=== PATIENT | male | born 1995 | race Caucasian/White ===

== ENCOUNTER → 2019-09-01 17:41 | Outpatient (CLI) | payer MEDICAID, SELFPAY ==
--- NOTE | 2019-09-01 | XR_ITS ---
PROCEDURE: XR HAND RT MIN 3V CLINICAL INDICATION: PAIN COMPARISON: No exams were available for comparison FINDINGS: There is a nondisplaced fracture of the proximal base of the 5th metacarpal with some overlying soft tissue swelling. There is no other convincing evidence of bony fracture. The joint spaces are well-preserved. No significant degenerative/arthritic changes. No erosive changes evident. Other findings:None. IMPRESSION: Nondisplaced fracture proximal base 5th metacarpal. Dictated by: Tunde Rogel 09/02/2019 10:41 Electronically signed by Tunde Rogel in [place] 09/02/2019 10:41
--- NOTE | 2019-09-01 | XR_ITS ---
PROCEDURE: XR WRIST RT MIN 3V CLINICAL INDICATION: PAIN/FALL COMPARISON: No exams were available for comparison FINDINGS: There is a nondisplaced fracture of the proximal base of the 5th metacarpal. There is no other convincing evidence of acute fracture or dislocation. If additional occult fracture is suspected clinically, repeat exam in 7-[address] should be considered further evaluate. IMPRESSION: Nondisplaced fracture proximal base 5th metacarpal. Dictated by: Tunde Rogel 09/02/2019 10:55 Electronically signed by Tunde Rogel in [place] 09/02/2019 10:55
== END ==
PROVIDERS: Visit Provider Nurse Practitioner Family
DX: M79.641 Pain in right hand (principal); M25.531 Pain in right wrist
CPT/HCPCS: 73110; 73130

== ENCOUNTER → 2019-09-13 09:49 | Outpatient (CLI) | payer MEDICAID, SELFPAY ==
--- NOTE | 2019-09-13 10:04 | XR_ITS ---
PROCEDURE: XR HAND RT MIN 3V CLINICAL INDICATION: 5th MC fracture COMPARISON: No exams were available for comparison FINDINGS: Nondisplaced fracture transverse in nature once again noted at the base of the 5th metacarpal not significantly changed. The joint spaces are well-preserved. No significant degenerative/arthritic changes. No erosive changes evident. Other findings:None. IMPRESSION: No change nondisplaced fracture base of 5th metacarpal Dictated by: Jake Ramos MD 09/13/2019 11:38 Electronically signed by Jake Ramos MD in [place] 09/13/2019 11:38
== END ==
PROVIDERS: Visit Provider Orthopaedic Surgery
DX: S62.91XA Unspecified fracture of right hand, initial encounter for closed fracture (principal)
CPT/HCPCS: 73130

== ENCOUNTER → 2019-10-08 13:09 | Outpatient (CLI) | payer MEDICAID, SELFPAY ==
--- NOTE | 2019-10-08 13:13 | XR_ITS ---
PROCEDURE: XR HAND RT MIN 3V CLINICAL INDICATION: rt 5th mc fx, OUT OF CAST Injury with pain COMPARISON: XR HAND RT MIN 3V from 09/01/2019 XR HAND RT MIN 3V from 09/13/2019 FINDINGS: There is an old fracture at the base of the 5th metacarpal. Fracture line is still visible along the ulnar aspect. No other significant anomalies are evident. IMPRESSION: No acute finding. Old fracture base of 5th metacarpal Dictated by: Jake Ramos MD 10/08/2019 14:35 Electronically signed by Jake Ramos MD in [place] 10/08/2019 14:35
== END ==
PROVIDERS: Visit Provider Orthopaedic Surgery
DX: S62.346D Nondisplaced fracture of base of fifth metacarpal bone, right hand, subsequent encounter for fracture with routine healing (principal)
CPT/HCPCS: 73130

== ENCOUNTER 2022-12-22 18:22 | Emergency (ER) | payer MEDICAID, SELFPAY ==
[2022-12-22 18:23] VITALS: BP 135/78; PULSE 90; RESP 18; TEMP 36.7; O2SAT 100; BMI 19.0
--- NOTE | 2022-12-22 18:39 | EXP.UTC ---
Discharge Plan Disposition Patient Disposition: Home, Self-Care Condition: Good Prescriptions Prescriptions: New cephalexin 500 mg capsule 500 mg PO QID Qty: 40 0RF mupirocin 2 % ointment 1 applic topical TID 7 Days Qty: 15 0RF No Action bupropion HCl [Wellbutrin XL] 300 mg tablet extended release 24 hr 300 mg PO DAILY Qty: 30 0RF Referrals Follow up/Referrals: Ashu Young APRN [Primary Care Provider] - See instructions Activity Restrictions/Add. Instructions Additional Instructions/Restrictions: Keep the wound clean and dry. Watch the wound for signs of infection, such as redness, swelling, drainage, fever. etc. Take tylenol or ibuprofen for pain. Follow up with your regular doctor. GO TO THE ER FOR ANY WORSENING SYMPTOMS OR CONCERNS. Clinical Impressions Clinical Impression: Abrasion of ankle, left Instructions Patient Instructions: DI for Abrasion, Cephalexin, Mupirocin Discharge ED Provider[place] [facility] [facility] [place] General Stated complaint: AO06/04 LT ankle inj Mode of Arrival: Ambulatory Source of Information: Patient Limitations: No Limitations Time Seen by Provider: 12/22/22 18:39 Description of Symptoms (Recalled from Triage Doc. by RN): Patient reports sore on left ankle from a rock hitting it two days ago. HEENT Symptoms (Recalled from RN notes): No Resp Symptoms (Recalled from RN notes): No Skin Symptoms (Recalled from RN notes): Yes MS Symptoms (Recalled from RN notes): No Functional Status (Recalled from RN notes): wnl History of Present Illness Provider Complaint: He was mowing 2 days ago when a rock flew and hit him on his left ankle. This resulted in an abrasion. He states that since then he has pain and redness at the site. Related Data Previous Rx's Medication Instructions Recorded bupropion HCl 300 mg 24 hr tablet, 300 mg PO DAILY #30 tabs 03/30/21 extended release (Wellbutrin XL) cephalexin 500 mg capsule 500 mg PO QID #40 caps 12/22/22 mupirocin 2 % topical ointment 1 applic topical TID 7 days #15 12/22/22 grams Allergies Allergy/AdvReac Type Severity Reaction Status Date / Time No Known Allergies Allergy Verified 01/26/21 11:40 Worker's Comp Is this a Worker's Comp case?: No [facility] Disclaimer: The information contained in this section may have been updated after the patient was seen, as this information can be updated by other users. Social History Smoking Status: Current every day smoker tobacco type: cigarettes packs per day: 1 second hand exposure: No alcohol intake: current substance use type: denies use current occupational status: unemployed and disabled Travel in the last 8 weeks: None household members: significant other housing: apartment number of children: 3 current occupational exposures/hazards: No caffeine: Yes ROS Obtained: Yes All systems reviewed & no additional complaints except as documented Constitutional Constitutional: Denies chills and Denies fever(s) Eyes Eyes: Denies eye discharge ENT Ears, Nose, Mouth, and Throat: Denies dizziness, Denies otalgia and Denies sore throat Cardiovascular Cardiovascular: Denies chest pain Respiratory Respiratory: Denies shortness of breath, Denies chest congestion, Denies cough, Denies stridor and Denies wheezing Gastrointestinal Gastrointestingal: Denies nausea or vomiting Musculoskeletal Musculoskeletal: Reports system reviewed and no additional complaints, except as documented and Denies arthralgias Integumentary/Breasts Skin/Breast: Reports as per HPI Neurologic Neurologic: Denies dizziness and Denies paresthesias Allergic/Immunologic Allergic/Immunologic: Denies wheezing Physical Exam General General appearance: alert and in no apparent distress Head Head exam: atraumatic, normocephalic and normal inspection Eye Eye exam: Present normal appearance, PERRL and EOMI ENT ENT exam: Pr
[2022-12-22 19:28] VITALS: BP 135/78; PULSE 90; RESP 18; TEMP 36.7; O2SAT 100
== END 2022-12-22 19:29 | disposition home or self-care (01) ==
PROVIDERS: Emergency Provider Nurse Practitioner Family; PCP Nurse Practitioner Family
DX: S90.512A Abrasion, left ankle, initial encounter (principal); F17.210 Nicotine dependence, cigarettes, uncomplicated; W20.8XXA Other cause of strike by thrown, projected or falling object, initial encounter
CPT/HCPCS: 99204; 99212; G0463

== ENCOUNTER 2023-11-11 15:34 | Emergency (ER) | payer MEDICAID, SELFPAY ==
--- NOTE | 2023-11-11 15:34 | ECG_ITS ---
APPROVED REPORT Exam: Resting ECG HR:92 bpm ECG Measurements Heart Rate 92 AXES IA 297 P 85 QRSd 89 QRS 94 QT 337 T 62 QTc 387 Conclusion SINUS RHYTHM WITH FIRST DEGREE AV BLOCK BORDERLINE RIGHT AXIS DEVIATION [QRS AXIS > 90] Electronically signed by : POPEYE SMITH, 11/12/2023 00:25:09
[2023-11-11 15:39] VITALS: BP 158/95; PULSE 103; RESP 20; TEMP 36.8; O2SAT 100; BMI 19.0
--- NOTE | 2023-11-11 15:40 | PC.NURSE ---
DR SMITH AT BEDSIDE
--- NOTE | 2023-11-11 15:42 | XR_ITS ---
FINAL REPORT TECHNIQUE: Chest PA & Lateral CLINICAL HISTORY: Precordial chest pain FINDINGS: 2 views of the chest were performed. The heart size is normal. The mediastinum is within normal limits. There is no acute cardiopulmonary process. There are no pleural effusions. There is no pneumothorax. The bony thorax appears intact. IMPRESSION: No acute cardiopulmonary process. Reviewed, Interpreted and Dictated by Paul Phoenix MD Transcribed by Sejal Spencer Authenticated and [facility]
[2023-11-11 15:48] LABS: Basophils # 0.2 K/mm3 (0-0.2); Basophils % 2.4 % (0.1-2.0); Chloride 104 mmol/L (98-107); Eosinophils % 0.5 % (0.1-12.0); Hematocrit 49.1 % (42.0-52.0); Hemoglobin 16.1 g/dL (14.1-18.0); Lymphocytes # 1.8 K/mm3 (0.7-4.5); Lymphocytes % 22.5 % (10-50); Mean Corpuscular HGB Conc 32.9 g/dL (31.8-35.4); Mean Corpuscular Hemoglobin 34.1 pg (27.0-31.2); Mean Corpuscular Volume 103.9 fl (80-94); Mean Platelet Volume 8.2 fl (7.4-10.4); Monocytes # 0.9 K/mm3 (0.1-1.0); Monocytes % 11.2 % (1.7-9.3); Neutrophils # 5.1 K/mm3 (1.8-7.8); Neutrophils % 63.4 % (37.0-80.0); Platelet Count 178 K/mm3 (142-424); Red Blood Count 4.73 M/mm3 (4.60-6.20); Red Cell Distribution Width 13.7 % (11.5-17.5)
[2023-11-11 15:49] LABS: Potassium 3.6 mmoL/L (3.5-5.1); Sodium 140 mmol/L (136-145)
--- NOTE | 2023-11-11 15:49 | PC.NURSE ---
patient gone to XRay at this time.
[2023-11-11 15:51] LABS: Alanine Aminotransferase 70 U/L (12-78); Alkaline Phosphatase 99 U/L (38-126); Aspartate Amino Transferase 61 U/L (17-59); Bilirubin,Total 0.8 mg/dl (0.2-1.3); Blood Urea Nitrogen 8 mg/dl (9-20); Creatinine Clearance Estimated 140 mL/min (50-200); Estimated Glomerular Filt Rate 133 ml/min (>60); GFR (African American) 161 ML/MIN (>60)
[2023-11-11 15:52] LABS: Albumin Level 4.3 g/dl (3.5-5.0); Albumin/Globulin Ratio 1.5 (1.1-1.8); Anion Gap 11.6 mEq/L (5-15); Calcium 9.2 mg/dl (8.4-10.2); Carbon Dioxide 28 mmol/L (22.0-30.0); Globulin 2.9 g/dL (1.3-3.2); Glucose 139 mg/dl (74-100); Total Protein,Serum 7.2 g/dl (6.3-8.2)
--- NOTE | 2023-11-11 15:56 | [facility].EDCP ---
Discharge Plan Disposition Patient Disposition: Home, Self-Care Condition: Good Prescriptions Prescriptions: No Action bupropion HCl [Wellbutrin XL] 300 mg tablet extended release 24 hr 300 mg PO DAILY Qty: 30 0RF cephalexin 500 mg capsule 500 mg PO QID Qty: 40 0RF mupirocin 2 % ointment 1 applic topical TID 7 Days Qty: 15 0RF Referrals Follow up/Referrals: Yeison Hopper MD [Staff Physician] - See instructions Wagner Key MD [Staff Physician] - See instructions Hao Noyola DO [Staff Physician] - See instructions ProviderNick MD [Primary Care Provider] - See instructions Marcelo Goldberg MD [Staff Physician] - See instructions Activity Restrictions/Add. Instructions Additional Instructions/Restrictions: You were evaluated in the emergency department today. Please follow-up closely with your primary care provider. We have provided you with information for a few. I recommend avoiding smoking. Avoid excess caffeine use. Make sure that you are eating regularly and eating a well-balanced diet. Return to the emergency department for new or worsening symptoms. Clinical Impressions Clinical Impression: Chest pain, Tobacco dependence, Syncope, vasovagal Stand Alone Forms Stand Alone Forms: Work/School Release Instructions Patient Instructions: DI for Atypical Chest Pain Discharge ED Provider: Marilu Garza General Chief Complaint: Chest Pain Stated Complaint: CHEST PAIN Time Seen by Provider: 11/11/23 15:37 Mode of Arrival: Ambulatory Source of Information: Patient Limitations: No Limitations Description of Symptoms (Recalled from ER Triage Doc. by RN): pt to ed c/o left sided chest pain intermittently x2 hours. pt states the pain os sharp in nature. pt denies n/v. pt states he was at rest when the pain started associated with body aches. 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 History of Present Illness HPI narrative: This patient is a 28-year-old male with history of tobacco dependence presenting to the emergency department for evaluation with concern for chest pain. Patient reports that it is intermittently been going on for the last 2 days. He states that it is sharp in nature on the left side of his chest. He also had sweats and some bodyaches associated with it. He denies any other associated symptoms, such as fevers, sore throat, congestion, cough, shortness of breath, abdominal pain, nausea, vomiting, changes bowel movements, rashes, or swelling. He also denies any history of IV drug use. He notes that he thinks this may be related to drinking energy drinks, as it seemed to have started after he had drink an energy drink. He also notes that it may be related to cigarettes, as he does smoke. He notes he had a history of open heart surgery 3 months old because he had a leaky heart valve, but denies any cardiac history since and states that he is otherwise been fine. Related Data Previous Rx's Medication Instructions Recorded bupropion HCl 300 mg 24 hr tablet, 300 mg PO DAILY #30 tabs 03/30/21 extended release (Wellbutrin XL) cephalexin 500 mg capsule 500 mg PO QID #40 caps 12/22/22 mupirocin 2 % topical ointment 1 applic topical TID 7 days #15 12/22/22 grams Allergies Allergy/AdvReac Type Severity Reaction Status Date / Time No Known Allergies Allergy Verified 01/26/21 11:40 [facility] Disclaimer: The information contained in this section may have been updated after the patient was seen, as this information can be updated by other users. Social History Smoking Status: Never smoker second hand exposure: No alcohol intake: current alcohol intake frequency: holidays/special occasions only substance use type: denies use current occupational status: unemployed and disabled Travel in the last 8 weeks: None household members: significant other housing: apartment number of children: 3 current occupational exposures/hazards: No caffeine: Yes ROS Obtained: Yes All systems reviewed & no additional complaints except as documented Physical Exam General General appearance: alert and in no apparent distress Comment: Very thin with temporal wasting Head Head exam: atraumatic and normocephalic Eye Eye exam: Present normal appearance, PERRL and EOMI ENT ENT exam: Present normal exam, normal oropharynx, mucous membranes moist and normal external ear exam Neck Neck exam: Present normal inspection, full ROM and trachea midline; Absent tenderness Chest Chest inspection: Present normal inspection and symmetric chest wall rise; Absent tenderness Respiratory Respiratory exam: Present normal lung sounds bilaterally; Absent respiratory distress, wheezes, stridor or accessory muscle use Cardiovascular Cardiovascular exam: Present regular rate and normal rhythm Abdominal Exam Abdominal exam: Present soft; Absent distention, tenderness or guarding Extremities Exam Extremities exam: Present normal inspection, full ROM and normal capillary refill; Absent tenderness or edema Back Exam Back exam: Present normal inspection and full ROM; Absent tenderness Neurological Exam Neurological exam: Present alert, oriented X3, CN II-XII intact and normal gait; Absent motor sensory deficit Psychiatric Psychiatric exam: Present normal affect and normal mood Skin Skin exam: Present warm and dry HEART Score HEART Score HEART Score assessment performed?: Yes History (anamnesis): Slightly suspicious ECG: Normal Age: <45 years Risk factors: No known risk factors Troponin: </= normal limit HEART Score: 0 Procedures Limited Ultrasound Findings:: Limited cardiac ultrasound Indication: Chest pain Identified cardiac views: [-Cardiac parasternal long axis] [-Cardiac parasternal short axis] [-Cardiac subxiphoid] Findings: [-Cardiac activity present -Gross wall motion normal -Pericardial effusion absent -Right heart strain absent] Impression: -[From above] Images [were saved] to permanent archive The study [was] technically adequate CPT: 01404 This study was performed by me, and I personally interpreted all images/videos. Based on my clinical judgement, these images were [adequate] and [did not] necessitate further imaging. Critical Care Critical Care Time Critical Care Time: No Medical Decision Making Medical Records Medical records reviewed: Yes I reviewed the patient's medical records. Bhanu Inquiry Pt receiving controlled substance: No Vital Signs Vital Signs: 11/11/23 15:39 11/11/23 16:00 11/11/23 16:32 Temperature 98.2 F Temperature Source Oral Pulse Rate 97 H 71 Pulse Rate [Left Radial] 103 H Respiratory Rate 20 22 15 Blood Pressure 129/83 94/49 L Blood Pressure [Right Arm] 158/95 H Blood Pressure Mean [Right Arm] 116 02 Sat by Pulse Oximetry 100 98 97 Oxygen Delivery Method Room Air 11/11/23 17:00 11/11/23 17:30 Temperature 98.2 F Temperature Source Oral Pulse Rate 76 77 Pulse Rate [Left Radial] Respiratory Rate 17 16 Blood Pressure 126/68 117/70 Blood Pressure [Right Arm] Blood Pressure Mean [Right Arm] 02 Sat by Pulse Oximetry 99 Oxygen Delivery Method Room Air Lab Data Labs: Lab Results 11/11/23 15:35: WBC 8.0, RBC 4.73, Hgb 16.1, Hct 49.1, MCV 103.9 H, MCH 34.1 H, MCHC 32.9, RDW 13.7, Plt Count 178, MPV 8.2, Neut % (Auto) 63.4, Lymph % (Auto) 22.5, [place] % (Auto) 11.2 H, Eos % (Auto) 0.5, Baso % (Auto) 2.4 H, Neut # (Auto) 5.1, Lymph # (Auto) 1.8, [place] # (Auto) 0.9, Eos # (Auto) 0.0, Baso # (Auto) 0.2, Sodium 140, Potassium 3.6, Chloride 104, Carbon Dioxide 28, Anion Gap 11.6, BUN 8 L, Creatinine 0.70, Estimated Creat Clear 140, Estimated GFR 133, Est GFR ( Amer) 161, Glucose 139 H, Calcium 9.2, Total Bilirubin 0.8, AST 61 H, ALT 70, Alkaline Phosphatase 99, Troponin I < 0.01, Total Protein 7.2, Albumin 4.3, Globulin 2.9, Albumin/Globulin Ratio 1.5, TSH 1.23, Thyroxine (T4) 11.9 H 11/11/23 15:38: D-Dimer 0.36 11/11/23 15:35 11/11/23 15:35 Response Orders (Tests/Meds): ED MEDICATIONS Discontinued Medications Generic Name Dose Route Start Last Admin Trade Name Freq PRN Reason Stop Dose Admin Lactated Ringer's 1,000 mls @ 999 mls/hr 11/11/23 16:19 11/11/23 16:28 Lactated Ringer's 1000 Ml Bag IV 11/11/23 17:19 999 mls/hr .Q1H1M ONE Administration Ketorolac Tromethamine 15 mg 11/11/23 16:19 11/11/23 16:27 Ketorolac 30mg/Ml Vial IV 11/11/23 16:20 15 mg ONCE ONE Administration ORDERS Category Date Time Status POCUS Point of Care (ER Only) Stat Exams 11/11/23 15:55 Completed XR chest 2V Stat Exams 11/11/23 15:42 Completed Complete Blood Count Auto Diff Stat Lab 11/11/23 15:35 Completed Comprehensive Metabolic Panel Stat Lab 11/11/23 15:35 Completed D-Dimer Stat Lab 11/11/23 15:38 Completed T4 (Thyroxine) Stat Lab 11/11/23 15:35 Completed Thyroid Stimulating Hormone Stat Lab 11/11/23 15:35 Completed Troponin I Q3H Lab 11/11/23 18:45 Ordered Troponin I Q3H Lab 11/11/23 21:45 Ordered Troponin I Stat Lab 11/11/23 15:35 Completed ECG Data Tracing #1: Attestation: I reviewed this ECG and interpreted as documented below: ECG Narrative: Normal sinus rhythm with a ventricular rate of [address] changes concerning for ischemia. ECG initial impression date: 11/11/23 ECG initial impression time: 15:38 MDM Narrative Medical Decision Narrative: In summary, this patient is a 28-year-old male presenting to the Emergency Department for evaluation of chest pains. Differential diagnoses considered include but are not limited to ACS, dysrhythmia, GERD, costochondritis, myocarditis, pericarditis, endocarditis. Ruling out the most morbid conditions drove assessment. On exam, the patient is well-appearing. He is thin with temporal wasting, but otherwise exam is reassuring. Vitals are reassuring on cardiac telemetry. Workup included CBC, CMP, troponin, D-dimer, chest x-ray, EKG, and bedside cardiac ultrasound. He was given a bolus of IV fluids as well as IV Toradol. EKG obtained is reassuring. I independently interpreted x-ray prior to the radiologist read and noted focal consolidation, pneumothorax, or other concern. Please see their read for final interpretation. Labs were obtained that demonstrated negative troponin, negative D-dimer, and no other acutely concerning abnormalities. Bedside cardiac ultrasound was obtained that was reassuring. On reassessment, patient is resting comfortably with normal vital signs on cardiac telemetry. It should be noted that while in the ED, patient did have a vasovagal syncopal episode related to seeing blood return and his IV. He recovered without issue. Ultimately, workup is reassuring. Heart score 0. Given this, feel that the patient is appropriate for discharge with close outpatient follow with primary care provider. I encouraged him to abstain from tobacco use as well as excess caffeine use. I also encouraged well-balanced diet. Patient was discharged after all questions were answered
[2023-11-11 16:00] VITALS: BP 129/83; PULSE 97; RESP 22; O2SAT 98
[2023-11-11 16:05] LABS: Troponin I < 0.01 ng/ml (0.00-0.034)
[2023-11-11 16:09] LABS: T4 (Thyroxine) 11.9 ug/dl (5.53-11.0)
[2023-11-11 16:23] LABS: Thyroid Stimulating Hormone 1.23 uIU/mL (0.465-4.68)
[2023-11-11] MEDS: KETOROLAC 30MG/ML VIAL 15 MG IV (16:27)
[2023-11-11] MEDS: LACTATED RINGERS 1000ML 1,000 ML 999 ML IV (16:28)
[2023-11-11 16:32] VITALS: BP 94/49; PULSE 71; RESP 15; O2SAT 97
[2023-11-11 16:42] LABS: D-Dimer 0.36 ug/mL (0.0-0.5)
[2023-11-11 17:00] VITALS: BP 126/68; PULSE 76; RESP 17; O2SAT 99
[2023-11-11 17:30] VITALS: BP 117/70; PULSE 77; RESP 16; TEMP 36.8; O2SAT 99
== END 2023-11-11 17:43 | disposition home or self-care (01) ==
PROVIDERS: Emergency Provider Emergency Medicine
DX: R07.89 Other chest pain (principal); R55 Syncope and collapse; F17.210 Nicotine dependence, cigarettes, uncomplicated
CPT/HCPCS: 71046; 80053; 84436; 84443; 84484; 85025; 85378; 93005; 96361; 96374; 99285

== ENCOUNTER 2025-01-25 12:43 | Emergency (ER) | payer MEDICAID, SELFPAY ==
[2025-01-25] VITALS (9 sets, daily range): BP systolic 100–124; BP diastolic 63–81; PULSE 54–75; RESP 16–18; TEMP 36.6–37.1; O2SAT 97–100; BMI 20.3
--- NOTE | 2025-01-25 12:55 | XR_ITS ---
FINAL REPORT CLINICAL HISTORY: laceration RT HAND COMPARISON: None FINDINGS: Three views of the right hand show no evidence of acute displaced fracture or dislocation of the visualized bony architecture. The joint spaces appear normal. No radiopaque foreign body. IMPRESSION: Unremarkable exam. Reviewed, Interpreted and Dictated by Juan Manuel Pappas MD Transcribed by Sonja Contreras Authenticated and [facility]
[2025-01-25] MEDS: TET/DIPHTH/PERT-ADULT 0.5ML SYRINGE 0.5 ML IM (13:16)
[2025-01-25] MEDS: LIDOCAINE 1% 5ML PF VIAL 5 ML IJ (13:17)
--- NOTE | 2025-01-25 13:31 | PC.NURSE ---
Addendum entered by Madelyn Quezada, EMT 01/25/25 13:31: phone with [facility] per Dr Light for consult with hand for tendon lac Original Note: ashley is currently on hp
--- NOTE | 2025-01-25 14:29 | ED_ITS ---
Discharge Plan Disposition Patient Disposition: Xfer Other Condition: Fair Prescriptions Prescriptions: No Action amoxicillin 875 mg tablet 875 mg PO BID 10 Days Qty: 20 0RF Referrals Follow up/Referrals: Provider,Referral, [Primary Care Provider, Medical] - See instructions Clinical Impressions Clinical Impression: Laceration of hand, Injury of hand, flexor tendon Stand Alone Forms Stand Alone Forms: Transfer Record - ED Instructions Patient Instructions: DI for Laceration Repair Print Language Print Language: Malay Discharge ED Provider: Fede Light General Adult HPI <MARISOL Wilson - Last Filed: 01/25/25 15:36> General Chief complaint: Wound/Laceration Stated complaint: R hand Laceration Time Seen by Provider: 01/25/25 12:45 Mode of Arrival: Wheelchair Source of Information: Patient Description of Symptoms (Recalled from ER Triage Doc. by RN): Pt presents to the ED with a lacerations to his right ring and pinky finger. pt reports he was using a kitchen knife trying to cut something off a nurse wound when the knife slipped. On arrival the pt was clammy and pale from looking at the blood. pt reports that he has numbness to the fingers that have the lacerations. History of Present Illness HPI narrative: Patient reports that just prior to arrival he was attempting to cut something off of a lawnmower with a kitchen knife. He lacerated the palmar surface of his 4th and 5th proximal phalanx. He reports that he has limited range of motion. He is unsure of his last tetanus vaccination. He did have N/V x 1 afterwards. complaint: Hand laceration Onset (ago): minute(s) (30) Location: right and upper extremity Radiation: non-radiation Severity: moderate Quality: constant Consistency: constant Relieving factors: none Exacerbating factors: movement Associated symptoms: nausea/vomiting (x1) Treatments prior to arrival: none Related Data Previous Rx's ?Medication ?Instructions ?Recorded amoxicillin 875 mg tablet 875 mg PO BID 10 days #20 ta bs 10/23/24 Allergies Allergy/AdvReac Type Severity Reaction Status Date / Time No Known Allergies Allergy Verified 10/23/24 18:19 <Fede Light DO - Last Filed: 01/29/25 20:26> History of Present Illness HPI narrative: Patient reports that just prior to arrival he was attempting to cut something off of a lawnmower with a kitchen knife. He lacerated the palmar surface of his 4th and 5th proximal phalanx. Following the event he did have symptoms consistent with a vasovagal episode in which he vomited and then became near syncopal and diaphoretic. Since the injury, he has had some subjective diminished sensation in the distal aspect of the 4th and 5th digits. He has also noted he is having difficulty with flexion of the fingers. He is unsure of his last tetanus vaccination. [facility] <MARISOL Wilson - Last Filed: 01/25/25 15:36> [facility] Disclaimer: The information contained in this section may have been updated after the patient was seen, as this information can be updated by other users. Medical History (Updated 01/25/25 @ 16:19 by Juan Antonio Gallardo MD) Otitis media Social History Smoking Status: Current every day smoker tobacco type: cigarettes packs per day: 1 second hand exposure: No alcohol intake: current alcohol intake frequency: holidays/special occasions only substance use type: denies use current occupational status: unemployed and disabled Travel in the last 8 weeks?: None household members: significant other housing: apartment number of children: 3 current occupational exposures/hazards: No caffeine: Yes Other Medical History Have you received the Flu Vaccine for this season: No Have you received the Pneumonia Vaccine: No <MARISOL Wilson - Last Filed: 01/25/25 15:36> ROS Obtained: Yes All systems reviewed & no additional complaints except as documented Physical Exam <MARISOL Wilson Last Filed: 01/25/25 15:36> General General appearance: alert and in no apparent distress Head Head exam: atraumatic and normocephalic Eye Eye exam: Present normal appearance and EOMI Chest Chest inspection: Present symmetric chest wall rise Respiratory Respiratory exam: Present normal lung sounds bilaterally; Absent wheezes or stridor Cardiovascular Cardiovascular exam: Present regular rate and normal rhythm; Absent systolic murmur Extremities Exam Extremities exam: Present full ROM Expanded Upper Extremity Exam Right: Hand exam: Present tenderness, swelling and laceration (proximal phalanx lacerations to the palmar surface, 1.5-2 cm each. Unable to flex DIP of both digits. <2 second capillary refill.); Absent full ROM Hand L/R front image: 2 1. laceration 2. laceration Neurological Exam Neurological exam: Present alert and oriented X3 Psychiatric Psychiatric exam: Present normal affect and normal mood Skin Skin exam: Present warm, dry and intact Medical Decision Making <MARISOL Wilson - Last Filed: 01/25/25 15:36> Medical Records Screening: Per USPSTF and CDC recommendations, given the prevalence of disease in our region, it is our hospital?s policy to screen for HIV and viral Hepatitis for all patients aged 18 and over and those with ongoing risk factors. Bhanu Inquiry Pt receiving controlled substance: No Vital Signs: 01/25/25 12:47 01/25/25 12:55 01/25/25 13:00 Temperature 97.8 F 98.7 F Temperature Source Tympanic Tympanic Pulse Rate 68 61 Pulse Rate [Left] 61 Respiratory Rate 18 18 Blood Pressure 104/68 L 104/68 L Blood Pressure [Right Arm] 104/68 L Blood Pressure Mean 87 Blood Pressure Mean [Right Arm] 80 Blood Pressure Source Automatic Cuff Blood Pressure Source [Right Arm] Automatic Cuff Blood Pressure Position Supine Blood Pressure Position [Right Arm] Supine 02 Sat by Pulse Oximetry 100 100 100 Oxygen Delivery Method Room Air Room Air 01/25/25 13:01 01/25/25 13:30 01/25/25 14:00 Temperature Temperature Source Pulse Rate 75 59 L 56 L Pulse Rate [Left] Respiratory Rate Blood Pressure 100/68 L 118/71 116/65 Blood Pressure [Right Arm] Blood Pressure Mean 78 86 Blood Pressure Mean [Right Arm] Blood Pressure Source Blood Pressure Source [Right Arm] Blood Pressure Position Blood Pressure Position [Right Arm] 02 Sat by Pulse Oximetry 100 100 100 Oxygen Delivery Method Room Air 01/25/25 14:30 01/25/25 15:00 01/25/25 16:42 Temperature 98.7 F Temperature Source Oral Pulse Rate 61 54 L 62 Pulse Rate [Left] Respiratory Rate 16 Blood Pressure 109/68 L 112/63 124/81 Blood Pressure [Right Arm] Blood Pressure Mean 77 70 Blood Pressure Mean [Right Arm] Blood Pressure Source Automatic Cuff Blood Pressure Source [Right Arm] Blood Pressure Position Supine Blood Pressure Position [Right Arm] 02 Sat by Pulse Oximetry 98 97 Oxygen Delivery Method Room Air Orders (Tests/Meds): ED MEDICATIONS Discontinued Medications Generic Name Dose Route Start Last Admin Trade Name Freq PRN Reason Stop Dose Admin Lidocaine HCl 5 ml 01/25/25 12:55 01/25/25 13:17 Lidocaine 1% 5ml Pf Vial IJ 01/25/25 12:56 5 ml ONCE ONE Administration Tetanus/Reduced Diphtheria/Acell Pertussis 0.5 ml 01/25/25 12:55 01/25/25 13:16 Tet/Diphth/Pert-Adult 0.5ml Syringe IM 01/25/25 12:56 0.5 ml .ONCE ONE Administration ORDERS Category Date Time Status Hand XR right minimum 3 views [XR hand RT min 3V] Stat Exams 01/25/25 12:55 Completed Medical Decision Narrative: In summary patient is a 30-year-old who presents the emergency department for evaluation of laceration. Patient is hemodynamically upon arrival afebrile. Laceration to the proximal 4th and 5th digits on the palmar surface. Differential diagnosis includes superficial laceration, tendon laceration, foreign body. Initial workup will be conducted with x-ray. Initial inventions include tetanus vaccination updated. Initial workup reviewed by me x-ray unremarkable. Given his inability to flex the DIP of the 4th and 5th digits patient was discussed with hand. They advised transferring the patient for further evaluation and treatment. Patient is stable at this time and agreeable to the plan. Patient wishes to go POV which is appropriate. I independently interpreted the hand Xray with no acute fracture or foreign body. <Fede Light, DO - Last Filed: 01/29/25 20:26> Vital Signs: 01/25/25 12:47 01/25/25 12:55 01/25/25 13:00 Temperature 97.8 F 98.7 F Temperature Source Tympanic Tympanic Pulse Rate 68 61 Pulse Rate [Left] 61 Respiratory Rate 18 18 Blood Pressure 104/68 L 104/68 L Blood Pressure [Right Arm] 104/68 L Blood Pressure Mean 87 Blood Pressure Mean [Right Arm] 80 Blood Pressure Source Automatic Cuff Blood Pressure Source [Right Arm] Automatic Cuff Blood Pressure Position Supine Blood Pressure Position [Right Arm] Supine 02 Sat by Pulse Oximetry 100 100 100 Oxygen Delivery Method Room Air Room Air 01/25/25 13:01 01/25/25 13:30 01/25/25 14:00 Temperature Temperature Source Pulse Rate 75 59 L 56 L Pulse Rate [Left] Respiratory Rate Blood Pressure 100/68 L 118/71 116/65 Blood Pressure [Right Arm] Blood Pressure Mean 78 86 Blood Pressure Mean [Right Arm] Blood Pressure Source Blood Pressure Source [Right Arm] Blood Pressure Position Blood Pressure Position [Right Arm] 02 Sat by Pulse Oximetry 100 100 100 Oxygen Delivery Method Room Air 01/25/25 14:30 01/25/25 15:00 01/25/25 16:42 Temperature 98.7 F Temperature Source Oral Pulse Rate 61 54 L 62 Pulse Rate [Left] Respiratory Rate 16 Blood Pressure 109/68 L 112/63 124/81 Blood Pressure [Right Arm] Blood Pressure Mean 77 70 Blood Pressure Mean [Right Arm] Blood Pressure Source Automatic Cuff Blood Pressure Source [Right Arm] Blood Pressure Position Supine Blood Pressure Position [Right Arm] 02 Sat by Pulse Oximetry 98 97 Oxygen Delivery Method Room Air Orders (Tests/Meds): ED MEDICATIONS Discontinued Medications Generic Name Dose Route Start Last Admin Trade Name Freq PRN Reason Stop Dose Admin Lidocaine HCl 5 ml 01/25/25 12:55 01/25/25 13:17 Lidocaine 1% 5ml Pf Vial IJ 01/25/25 12:56 5 ml ONCE ONE Administration Tetanus/Reduced Diphtheria/Acell Pertussis 0.5 ml 01/25/25 12:55 01/25/25 13:16 Tet/Diphth/Pert-Adult 0.5ml Syringe IM 01/25/25 12:56 0.5 ml .ONCE ONE Administration ORDERS Category Date Time Status Hand XR right minimum 3 views [XR hand RT min 3V] Stat Exams 01/25/25 12:55 Completed Medical Decision Narrative: In summary patient is a 30-year-old who presents the emergency department for evaluation of laceration to the palmar aspect of his 4th and 5th right fingers. On initial evaluation of the patient he appeared to be having a vagal episode, and was diaphoretic. However, he was mentating appropriately, was grossly neurologically intact, and hemodynamically stable. On examination, there is a laceration to the base of the palmar aspect of the 4th/5th digits of the right hands. These lacerations are deep. On motor exam, he is able to flex the fingers at the MCP joints, but he is unable to flex the PIP and DIP joints. He does report subjective lack of sensation in the distal tips of the fingers. I have attempted to obtain doppler signals in the digital arteries of these digits, but I am unable to obtain a signal. However, I have also tried to obtain a doppler signal on his unaffected fingers and I am also unable to detect a signal -- so I do feel like this is secondary to equipment error rather than arterial injury. Capillary refill is mildly delayed. Differential diagnosis included tendon laceration, finger fracture, foreign body, among others. Initial workup consisted of an XR of the right hand. This was personally interpreted by me and demonstrated no evidence of foreign body or fracture. We did treat the patient with a tetanus vaccination given that his last tetanus is unknown. The wound was cleansed with hibiclens and copious amounts of saline, and we dressed his wounds with gauze. Given that he has lost the ability to flex the PIP/DIP joints of his fingers I have a high index of suspicion for tendinous injury of the fingers. I have had an interactive discussion with the orthopedic hand specialist at , Dr. Bere Florez, who feels that this patient warrants urgent evaluation by a hand specialist. She has recommended transfer to the [facility] for formal evaluation. Patient would like to present via POV. He remains in stable condition and his wound is hemostatic and dressed, so I do feel that this is a safe disposition. Patient was transferred successfully by POV. Attestation: I was consulted by the [facility], and we discussed the complexity of problems being addressed. I personally evaluated the patient and performed a substantial part of the examination and medical decision making, and ultimately approved the treatment and management plan for this patient's care in the emergency department. Fede Light, Critical Care <MARISOL Wilson - Last Filed: 01/25/25 15:36> Critical Care Time Critical Care Time: No
--- NOTE | 2025-01-25 16:16 | PC.NURSE ---
Called Lauren at ED for report.
== END 2025-01-25 16:46 | disposition other institution (70) ==
PROVIDERS: Emergency Provider Student in an Organized Health Care Education/Training Program
DX: S61.411A Laceration without foreign body of right hand, initial encounter (principal); R20.0 Anesthesia of skin; F17.210 Nicotine dependence, cigarettes, uncomplicated; W26.0XXA Contact with knife, initial encounter; Z23 Encounter for immunization
CPT/HCPCS: 73130; 90471; 90715; 99285; J2003

== ENCOUNTER 2025-01-30 16:30 | Outpatient (CLI) | payer MEDICAID, SELFPAY ==
--- OUTSIDE RECORDS SUMMARY | 2025-01-25 19:58 | XMS_ITS | Encounter Summary ---
Author Organization [facility] Address [address] [place] [address] Care Team Providers Care [employer] Facer Name Role Phone Pcp, No Primary Care Provider Unavailabl e Reason for Referral * Consultation (Routine) - Authorized Specialty Diagnoses / Procedures Referred By Peggy johnston Referred To Contact Hand Surgery Diagnoses Finger laceration, initial encounter Zoila Alonso MD [address] [place] [address] Phone: tel: fax: [facility] [address] [place] [address] Phone: tel: fax: Referral ID Status Reason Start Date Expiration Date Visits Requested Visits Authorized [id number] Authorized Specialty Services Required 01/26/2025 07/28/2026 1 1 Scheduling Instructions Post op follow up [address] Mast Reason for Visit * Reason Comments Laceration * Auth/Cert (Routine) Specialty Diagnoses / Procedures Referred By Peggy t Referred To Contact Diagnoses Finger laceration, initial encounter possible tendon laceration Juan Mast MD [address] [address] Phone: tel: fax: [facility] [address] [place] [phone] Phone: tel: Referral ID Status Reason Start Date Expiration Date Visits Re quested Visits Authorized [id number] 1 1 Encounter Details Date Type Department Care Team ([facility] st Contact Info) Description 01/25/2025 7:58 PM EDT - 01/26/2025 5:09 PM EDT Hospital Encounter [facility] [address] [place] [address] Tamar Wilson MD [address] [place] [address] Juan Mast MD [address] [place] [address] Finger laceration, initial encounter (Primary [...] EDCammy Fuller 6. Suicidal Behavior (Lifetime) No 5 8:07 PM EDT Cammy Paige documented as [...] for mild pain. 100 tablet 1 01/26/2025 oxyCODONE (Roxicodone) 5 MG immediate release tablet Take 1 tablet by mouth every 6 hours as needed for severe pain. 15 tablet 01/26/2025 sulfamethoxazole- trimethoprim (Bactrim DS) 800-160 MG tabletIndications :Finger laceration, initial encounter Take 1 tablet by mouth 2 times a day for 7 days. 14 tablet 01/26/2025 02/02/2025 documented as of this encounter Miscellaneous Notes [...] PM EDT Operative Note Date: 01/26/25 Location: [facility] Name: Fran Ruvalcaba, : 1995, Diagnoses: [...] Attending Surgeon(s): * Juan Mast - Primary Donor Recruitment Manager(s): * Zoila Alonso MD - Resident - [...] - 01/26/2025 * Significant Event - Sebastian Madera MD - 01/26/2025 7:53 AM EDT Orthopaedic Surgery Interim Summary To OR today for wound exploration and possible tendon repair. Juan Antonio Madera MD PGY-2, Orthopaedic Surgery [facility] Orthopaedic Trauma Service Pager: [phone] Orthopaedic Recon/Spine/Foot and Ankle Service Pager: [phone] * H&P - Juan Mast MD - [...] outside hospital where he received Tdap in [facility] and was transferred here for further evaluation. Last Meal: 01/25 Past Medical History: Past Medical History[1] Family History: Reviewed and found to be non contributory to HPI/ml Family or Personal History of DVT/PE: denies MRSA history: denies Metal Allergies: denies Tobacco: Half pack a day Alcohol: reports Illicit substance use: denies Lives in [place], [place] Occupation/Employment: Disability Ambulation: Without assistive devices [...] Juan Antonio Madera MD PGY-2, Orthopaedic Surgery [facility] Orthopaedic Trauma Service Pager: [phone] Orthopaedic Recon/Spine/Foot and Ankle Service Pager: [phone] [1] History reviewed. No pertinent past medical [...] HPI Chief Complaint Patient presents with Laceration PIT Note Fran Ruvalcaba is a 30 y.o. [...] patient after transfer to Main ED from [facility]. I personally performed my own history, ROS, and physical. I agree with the above [facility] documentation, however full history, physical and [...] as history provider. History provided by: Patient support manager used: No Patient History Past Medical History[1] [...] baseline. Comments: Awake Psychiatric: Behavior: Behavior normal. 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 Sent for hand specialist from OSH. GivenTdap [...] 1,000 mg 1,000 mg Oral Given 01/25/2025 222 EDT ceFAZolin (Ancef) injection 2 g 2 g Intravenous Given ED COURSE: ED Course as of 01/25/252324Jan 25, 2025 2228 Ancef given per hand [...] Office Visit Matthew Umanzor [address] [place] [address] Roxanne Summers PA [address] [address] Scheduled Referrals Name Type Priority Associated Diagnoses Orde r Schedule Hand Surgery Outpatient Referral Routine Finger laceration, initial encounter Expected: 02/09/2025 (Approximate), Expires: 07/30/2026 documented as of this encounter Procedures Procedure Name Priority Date/Time Associated Diagnosis Comments IA REPAIR EXTEN TENDON,DORSUM FINGR,EA 01/26/2025 11:52 AM [...] mean PAP 25 mmHg DEVANG ISCV PA IA(ACCEL) 26.7 mmHg DEVANG ISCV PA acc slope [...] is no recent study available for direct [id number] comparison. Left Ventricle The left ventricle is [...] is no recent study available for direct [id number] comparison. us Juan Mast MD CV ECHO PROCEDURES Final Res ult * Type and Screen (01/26/2025 12:56 AM EDT) [facility] ABO/Rh A Positive 01/25/2025 11:28 PM EDT BLOOD BANK Antibody Screen Negative 01/25/2025 11:28 PM EDT BLOOD BANK Specimen Expiration 01/29/2025 23:59 01/25/2025 11:28 PM EDT BLOOD BANK Blood Venous blood specimen / Unknown Venipuncture / Unknown 01/26/2025 12:56 AM EDT 01/26/2025 1:07 AM EDT us Juan Mast MD LAB BLOOD BANK TEST ORDERABL ES Final Result BLOOD BANK [address] [place] [address], * ECG Adult (01/25/2025 11:52 PM EDT) [facility] EKG DIAGNOSIS CLASS Borderline Normal MUSE ECG Ventricular Rate 67 BPM MUSE ECG Atrial Rate 67 BPM MUSE ECG IA Interval 148 ms MUSE ECG QRSD Interval 90 ms MUSE ECG QT Interval 408 ms MUSE ECG QTC Interval 431 ms MUSE ECG P Goree 81 degrees MUSE ECG R Goree 72 degrees MUSE ECG T Wave Goree 61 degrees MUSE ECG Diagnosis Sinus rhythm with marked sinus arrhythmia MUSE ECG Diagnosis MUSE ECG Diagnosis MUSE ECG Diagnosis Confirmed by Sara Munguia ([id number]) on 01/27/2025 6:38:54 AM MUSE ECG 01/25/2025 11:5 2 PM EDT 01/27/2025 6:38 AM EDT Juan Mast MD ECG ORDERABLES Final Result MUSE ECG * (ABNORMAL) Hepatitis C Virus (HCV) Quantitative PCR - ED (01/25/2025 11:49 PM EDT) [facility] Hepatitis C Virus (HCV) Quantitative Interpretation Detected( A) Not Detected. 01/26/2025 10:59 AM EDT [facility] Hepatitis C Virus (HCV) Quantitative Viral Load Log Result 5.58 <1.08 log10 IU/mL 01/26/2025 10:59 AM EDT [facility] Hepatitis C Virus (HCV) Quantitative IU/mL Result 379,781 <12 IU/mL 01/26/2025 10:59 AM EDT [facility] Blood Venous blood specimen / Unknown Venipuncture / Unknown 01/25/2025 11:49 PM EDT 01/25/2025 11:56 PM EDT Narrative [facility] - 01/26/2025 10:59 AM EDT The [...] ORDERABLES Final R esult Performing Organization Address [facility] Co de Phone Number [facility] [address] [place] [address] * ED HIV 1/2 Antibody/Antigen Screen w/Reflex to HIV 1/2 Differentiation (01/25/2025 11:49 PM EDT) HIV 1 & 2 Antibody/Antigen Screen Non Reactive Non Reactive 01/26/2025 12:37 AM EDT [facility] Comment:Screening for HIV 1 & 2 antibodies, and P24 antigen is NONREACTIVE. No confirmatory testing is required. Blood Venous blood specimen / Unknown Venipuncture / Unknown 01/25/2025 11:49 PM EDT 01/25/2025 11:56 PM EDT us Juan Mast MD LAB BLOOD ORDERABLES Final R esult Performing Organization Address [facility] Co de Phone Number [facility] [address] [place] [address] * Hemoglobin A1c (01/25/2025 11:49 PM EDT) Hemoglobin A1c 5.0 <5.7 % 01/26/2025 9:21 AM EDT [facility] Blood Venous blood specimen / Unknown Venipuncture / Unknown 01/25/2025 11:49 PM EDT 01/25/2025 11:57 PM EDT Narrative [facility] - 01/26/2025 9:21 AM EDT HA1C Interpretive Data: Diagnosis of Diabetes: Diabetic > or = 6.5% Pre-diabetic 5.7 to 6.4% Non-diabetic < or = 5.6% Glycemic Targets for Type I and Type II Diabetics: Non- Adults <7.0% Adults <6.0% Children and Adolescents <7.5% Source: [place] [employer]. Standards of medical care in diabetes,2017. Diabetes Care.2017:40 (suppl 1):S1-S135. us Juan Mast MD LAB BLOOD ORDERABLES Final R esult Performing Organization Address City/[facility]/ZIP Co de Phone Number [facility] [address] [place] [address] * (ABNORMAL) Hepatitis C Antibody - ED (01/25/2025 11:49 PM EDT) Hepatitis C Antibody Positive(A ) Negative 01/26/2025 12:52 AM EDT [facility] Blood Venous blood specimen / Unknown Venipuncture / Unknown 01/25/2025 11:49 PM EDT 01/25/2025 11:56 PM EDT us Juan Mast MD LAB BLOOD ORDERABLES Final R esult Performing Organization Address City/[facility]/ZIP Co de Phone Number [facility] [address] [place] [address] * (ABNORMAL) Prothrombin Time/INR (01/25/2025 11:49 PM EDT) Prothrombin Time 14.6(H) 12.0 - 14.3 sec 01/26/2025 12:07 AM EDT [facility] INR 1.2(H) 0.9 - 1.1 01/26/2025 12:07 AM EDT [facility] Blood Venous blood specimen / Unknown Venipuncture / Unknown 01/25/2025 11:49 PM EDT 01/25/2025 11:52 PM EDT Narrative [facility] - 01/26/2025 12:07 AM EDT OPTIMAL INR RANGES FOR PATIENT ON ORAL ANTICOAGULANT THERAPY Prevention of venous thromboembolism INR 2.0 to 3.0 In patients with heart disease: Atrial fibrillation INR 2.0 to 3.0 Valvular heart disease INR 2.0 to 3.0 Tissue heart valves INR 2.0 to 3.0 Mechanical prosthetic valves INR 2.5 to 3.5 Prevention of recurrent [place] INR 2.5 to 3.5 us Juan Mast MD LAB BLOOD ORDERABLES Final R esult [facility] [address] [place] [address] * (ABNORMAL) CBC W/O Differential (01/25/2025 11:49 PM EDT) WBC Count 14.16(H) 3.70 - 10.30 10*3/uL LAB HEMATOLOGY METHOD 01/25/2025 11:54 PM EDT [facility] RBC Count 4.20(L) 4.60 - 6.10 10*6/uL LAB HEMATOLOGY METHOD 01/25/2025 11:54 PM EDT [facility] HGB 14.1 13.7 - 17.5 g/dL LAB HEMATOLOGY METHOD 01/25/2025 11:54 PM EDT [facility] HCT 40.8 40.0 - 51.0 % LAB HEMATOLOGY METHOD 01/25/2025 11:54 PM EDT [facility] Platelet Count 209 155 - 369 10*3/uL LAB HEMATOLOGY METHOD 01/25/2025 11:54 PM EDT [facility] MCV 97 79 - 98 fL LAB HEMATOLOGY METHOD 01/25/2025 11:54 PM EDT [facility] MCH 33.6(H) 26.0 - 32.0 pg LAB HEMATOLOGY METHOD 01/25/2025 11:54 PM EDT [facility] MCHC 34.6 30.7 - 35.5 g/dL LAB HEMATOLOGY METHOD 01/25/2025 11:54 PM EDT [facility] RDW 12.8 11.5 - 14.5 % LAB HEMATOLOGY METHOD 01/25/2025 11:54 PM EDT [facility] MPV 9.5 8.8 - 12.5 fL LAB HEMATOLOGY METHOD 01/25/2025 11:54 PM EDT [facility] nRBC 0.0 <=0.0 per 100 WBCs LAB HEMATOLOGY METHOD 01/25/2025 11:54 PM EDT [facility] Blood Venous blood specimen / Unknown Venipuncture / Unknown 01/25/2025 11:49 PM EDT 01/25/2025 11:52 PM EDT us Juan Mast MD LAB BLOOD ORDERABLES Final R esult [facility] [address] [place] [address] * (ABNORMAL) Basic Metabolic Panel, Plasma (01/25/2025 11:49 PM EDT) Glucose, Plasma 155(H) 74 - 99 mg/dL 01/26/2025 12:29 AM EDT [facility] BUN, Plasma 9 7 - 21 mg/dL 01/26/2025 12:29 AM EDT [facility] Creatinine, Plasma 0.65(L) 0.70 - 1.20 mg/dL 01/26/2025 12:29 AM EDT [facility] BUN/Creatinine Ratio 14 01/26/2025 12:29 AM EDT [facility] Sodium, Plasma 140 136 - 145 mmol/L 01/26/2025 12:29 AM EDT [facility] Potassium, Plasma 3.8 3.6 - 4.9 mmol/L 01/26/2025 12:29 AM EDT [facility] Chloride, Plasma 105 97 - 107 mmol/L 01/26/2025 12:29 AM EDT [facility] CO2, Plasma 24 22 - 29 mmol/L 01/26/2025 12:29 AM EDT [facility] Anion Gap 11 6 - 16 mmol/L 01/26/2025 12:29 AM EDT [facility] Total Calcium, Plasma 8.7(L) 8.9 - 10.2 mg/dL 01/26/2025 12:29 AM EDT [facility] eGFRcr 129.2 mL/min/1.7 3m*2 01/26/2025 12:29 AM EDT [facility] Comment:Reported eGFRcr in m L/min/1.73m2 is based the CKD-EPI 2020 equation that does not use a race coefficient. Blood Venous blood specimen / Unknown Venipuncture / Unknown 01/25/2025 11:49 PM EDT 01/25/2025 11:57 PM EDT us Juan Mast MD LAB BLOOD ORDERABLES Final R esult [facility] [address] [place] [address] * XR Chest 1 View (01/25/2025 11:47 [...] on Tue01/26/25 at 0400, Until Discontinued, Routine Given 01/26/2025 4:30 AM EDT 1,000 mg bisacodyl (Dulcolax) suppository 10 mg 10 mg, Rectal, Daily PRN, Starting on Tue01/25/25 at 2328, Until Tue01/26/25 at 1909, Routine, constipation, if no bowel movement for 72 hours and no response to magnesium hydroxide ceFAZolin (Ancef) injection 2 g 2 g, Intravenous, Once, 1 dose, On Tue01/25/25 at 2200, STAT Given 01/25/2025 10:21 PM EDT 2 g fentaNYL (Sublimaze) injection 25 mcg 25 mcg, Intravenous, Every 5 min PRN, 2 doses, Starting on Tue01/26/25 at 1400, Until Tue01/26/25 at 1909, Routine, Recovery (Phase I only), pain score of 3-4 out of 10 HYDROmorphone (Dilaudid) injection 0.5 mg 0.5 mg, Intravenous, Every 10 min PRN, 2 doses, Starting on Tue01/26/25 at 1400, Until Tue01/26/25 at 1909, Routine, Recovery (Phase I only), [...] PRN, Starting on Tue01/25/25 at 2328, Until Tue01/26/25 at 1909, Routine, constipation, if no bowel movement for 48 hours ondansetron (Zofran) injection 4 mg 4 mg, Intravenous, Once as needed, 1 dose, Starting on Tue01/26/25 at 1359, Until Tue01/26/25 at 1909, Routine, Recovery (Phase I only), nausea, vomiting oxyCODONE (Roxicodone) immediate release tablet 10 mg 10 mg, Oral, Once as needed, 2 doses, Starting on Tue01/26/25 at 1400, Until 01/26/25 at 1909, Routine, [...] 1 Application Nasal, Once, 1 dose, On 01/26/25 at 1145, Routine Given 01/26/2025 10:59 AM [...] Auto Held - Provider: Automatic Transfer Provider)1909 (MAR Unhold - Provider: Automatic Discharge Provider) ceFAZolin (Ancef) injection 2 g (COMPLETED) 2 g, Intravenous, Once, 1 dose, On Tue01/25/25 at 2200, STAT 2221 (Given - Provider: Cammy Paige) polyethylene glycol (Miralax) packet 17 g 17 g, Oral, Daily, First dose on 01/26/25 at 0900, Until Discontinued, Routine 1020 (Not Given - Provider: Beverly Love - Reason: Patient/family refused)1026 (MAR Hold - Provider: Automatic Transfer Provider - Reason: Patient in procedure)190 (MAR Unhold - Provider: Automatic Discharge Provider) Povidone-Iodine 5 % swab solution 1 Application (COMPLETED) Nasal, Once, 1 dose, On 01/26/25 at 1145, Routine 1059 (Given - Provid er: Beryl Solares RN) senna-docusate (Hetal-Colace) 8.6-50 MG per tablet 1 tablet 1 tablet, Oral, 2 times daily, First dose on Tue01/25/25 at 2335, Until Discontinued, Routine 0020 (Canceled Entry - Provider: Dominique Willis, LIEN - Comment: handoff)1020 (Not Given - Provider: Beverly Love - Reason: Patient/family refused)1026 (MAR Hold - Provider: Automatic Transfer Provider - Reason: Patient in procedure)190 ([facility] Unhold - Provider: Automatic Discharge Provider) sodium chloride 0.9 % flush 10 mL(Linked Group 1) 10 mL, Intravenous, Every 12 hours, First dose on Tue01/25/25 at 2335, Until Discontinued, Routine 0020 (Canceled Entry - Provider: Dominiquelisette Willis RN)1026 ([facility] Hold - Provider: Automatic Transfer Provider - Reason: Patient in procedure)1135 (Dose Auto Held - Provider: Automatic Transfer Provider)1908 ([facility] Unhold - Provider: Automatic Discharge [...] Transfer Provider - Reason: Patient in procedure)1908 ([facility] Unhold - Provider: Automatic Discharge [...] (Given - Provid er: Dominique Willis RN)1026 ([facility] Hold - Provider: Automatic Transfer Provider - Reason: Patient in procedure)1908 ([facility] Unhold - Provider: Automatic Discharge [...] at 2328, Until 01/26/25 at 190, Routine, constipation, if no bowel movement for 48 hours 1026 ([facility] Hold - Pro vider: Automatic Transfer Provider - Reason: Patient in procedure)1908 ([facility] Unhold - Provider: Automatic Discharge [...] 01/26/25 at 190, Routine, line care 1026 ([facility] Hold - Pro vider: Automatic Transfer Provider - Reason: Patient in procedure)1908 ([facility] Unhold - Provider: Automatic Discharge [...] doses, Starting on 01/26/25 at 1400, Until 7/12/25 at 1909, Routine, Recovery (Phase I only), pain score of 6-8 out of 10 documented in this encounter Care Teams [employer] F[employer] Relationship Specialty Start Date End Date Pcp, Marilee [address] [place] [address] PCP - General Family Medicine 01/25/25 documented as of this encounter
--- OUTSIDE RECORDS SUMMARY | 2025-01-26 11:30 | XMS_ITS | Encounter Summary ---
Author Organization [facility] Address [address] [place] [address] Care Team Providers Care Labor And Employment Paralegal Name Role Phone Pcp, No Primary Care Provider Unavailabl e Reason for Visit * Reason Comments Laceration * Auth/Cert (Routine) Specialty Diagnoses / Procedures Referred By Peggy johnston Referred To Contact Diagnoses Finger laceration, initial encounter possible tendon laceration Juan Mast MD [address] [address] Phone: tel: fax: [facility] [address] [place] [address] Phone: tel: Referral ID Status Reason Start Date Expiration Date Visits Re quested Visits Authorized [id number] 1 1 Encounter Details Date Type Department Care Team (Late st Contact Info) Description 01/26/2025 11:30 AM EDT - 01/26/2025 2:30 PM EDT Surgery [facility] [address] [place] [id number] Juan Mast MD [address] [address] REPAIR, TENDON AND NERVE [[id number] (CPT )] Surgery Details Date/Time Status Location OR Service Patient Class Case Class Case Type Trauma Case? 01/26/2025 11:30 AM Posted [facility] 12 Orthopedic Surgery Inpatient E-Electi ve Panel 1 Procedure LRB Anes Op Region Wound Class Comments REPAIR, TENDON AND NERVE Right General Hand tendon tray, plastics hand set, micro set. 4-0 Fiberwire, lead hand, 60 min Surgeon Surgeon Role Service Panel Zoila Alonso MD Resident - Assisting Plastic Surg jose 1 Juan Mast MD Primary Orthopedic Surgery 1 Juan Mast MD Primary Orthopedic Surgery 1 Special Needs lead hand, micro set, tendon tray, plastic hand set, 4-0 Fiberwire documented in this encounter Social History Tobacco Use Types Packs/Day Years Used Date Smoking Tobacco: Never Assessed Sex and Gender Information Value Date Recorded Sex Assigned at Not on file Legal Sex Male 1:52 PM EDT Gender Identity Not on file Sexual Orientation Not on file documented as of this encounter Last Filed Vital Signs Vital Sign Reading Time Taken Comments Blood Pressure 115/72 01/26/2025 2:30 PM EDT Pulse 53 01/26/2025 2:30 PM EDT Temperature 36.6 C (97.9 F) 01/26/2025 1:55 PM EDT Respiratory Rate 15 01/26/2025 2:30 PM EDT Oxygen Saturation 100% 01/26/2025 2:30 PM EDT Inhaled Oxygen Concentration - - [...] (Past 1 Month) No 025 8:07 PM EDT Cammy Paige 6. Suicidal Behavior (Lifetime) No 5 8:07 [...] PM EDT Operative Note Date: 01/26/25 Location: [place] [facility] Name: Fran Ruvalcaba, : 1995, Diagnoses: [...] Attending Surgeon(s): * Juan Mast - Primary Licensed Sales Assistant(s): * Zoila Alonso MD - Resident - [...] Juan Antonio Madera MD PGY-2, Orthopaedic Surgery [facility] Pager: [phone] Orthopaedic Recon/Spine/Foot and Ankle Service Pager: [phone] * H&P - Juan Mast MD - [...] outside hospital where he received Tdap in [facility] and was transferred here for further evaluation. Last Meal: 01/25 Past Medical History: Past Medical History[1] Family History: Reviewed and found to be non contributory to HPI/ml Family or Personal History of DVT/PE: denies MRSA history: denies Metal Allergies: denies Tobacco: Half pack a day Alcohol: reports Illicit substance use: denies Lives in [place], [place] Occupation/Employment: Disability Ambulation: Without assistive devices [...] Juan Antonio Madera MD PGY-2, Orthopaedic Surgery [facility] Pager: [phone] Orthopaedic Recon/Spine/Foot and Ankle Service Pager: [phone] [1] History reviewed. No pertinent past medical [...] patient after transfer to Main ED from [facility]. I personally performed my own history, ROS, and physical. I agree with the above [facility] documentation, however full history, physical and other [...] as history provider. History provided by: Patient wire weaver cloth used: No Patient History Past Medical History[1] [...] baseline. Comments: Awake Psychiatric: Behavior: Behavior normal. Chandler Coma Scale Score: 15 ED Course & [facility] Note Date/Time: 01/25/2025/7:48 PM Entered by Gus [...] 2316 Date/Time Order Dose Route Action 01/25/2025 214 EDT acetaminophen (Tylenol) tablet 1,000 mg 1,000 mg Oral Given 01/25/2025 222 EDT ceFAZolin (Ancef) injection 2 g 2 g Intravenous Given All Other Orders Ordered Status Ordering Provider 01/25/25 222 NPO diet Diet effective midnight Acknowledged TAMAR WILSON I 01/25/25 222 Adult diet Diet texture: Regular Diet effective [...] PGY 1 Betsy Howe MD Resident 01/25/25 8382 Tamar Johnson MD, personally saw the patient, [...] 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 Sent for hand specialist from OSH. GivenTdap at OSH. * Progress Notes - Bere Nicole DO - 01/25/2025 6:12 PM EDT ED TRANSFER OF CARE NOTE Transferring provider: Brant Transferring attending: Cesar AFSHIN Time: 10pm I received sign-out and accepted [...] 01/25/20252324 Date/Time Order Dose Route Action 01/25/2025 214 EDT acetaminophen (Tylenol) tablet 1,000 mg 1,000 mg Oral Given 01/25/2025 222 EDT ceFAZolin (Ancef) injection 2 g 2 g Intravenous Given ED COURSE: ED Course as of 01/25/252324Jan 25, 20252227 Ancef given per hand surgery requests [MR] [...] 02/07/2025 3:10 PM EDT Office Visit Matthew Hand [address] [place] [address] Roxanne Summers PA [address] [address] Scheduled Referrals Name Type Priority Associated Diagnoses Orde r Schedule Hand Surgery Outpatient Referral Routine Finger laceration, initial encounter Expected: 02/09/2025 (Approximate), Expires: 07/30/2026 documented as of this encounter Procedures Procedure Name Priority Date/Time Associated Diagnosis Comments HI REPAIR EXTEN TENDON,DORSUM FINGR,EA 01/26/2025 11:52 AM [...] mean PAP 25 mmHg DEVANG ISCV PA HI(ACCEL) 26.7 mmHg DEVANG ISCV PA acc slope [...] is no recent study available for direct [id number] comparison. Left Ventricle The left ventricle is [...] is no recent study available for direct [id number] comparison. us Juna Mast MD CV ECHO PROCEDURES Final Res [...] ORDERABL ES Final Result BLOOD BANK [address] [place] [address], * ECG Adult (01/25/2025 11:52 PM EDT) EKG DIAGNOSIS CLASS Borderline Normal MUSE ECG Ventricular Rate 67 BPM MUSE ECG Atrial Rate 67 BPM MUSE ECG HI Interval 148 ms MUSE ECG QRSD Interval 90 ms MUSE ECG QT Interval 408 ms MUSE ECG QTC Interval 431 ms MUSE ECG P Orogrande 81 degrees MUSE ECG R Orogrande 72 degrees MUSE ECG T Wave Orogrande 61 degrees MUSE ECG Diagnosis Sinus rhythm with marked sinus arrhythmia MUSE ECG Diagnosis MUSE ECG Diagnosis MUSE ECG Diagnosis Confirmed by Sara Munguia ([id number]) on 01/27/2025 6:38:54 AM MUSE ECG 01/25/2025 11:5 2 PM EDT 01/27/2025 6:38 AM EDT us Juan Mast MD ECG ORDERABLES Final Result MUSE ECG * (ABNORMAL) Hepatitis C Virus (HCV) Quantitative PCR - ED (01/25/2025 11:49 PM EDT) Hepatitis C Virus (HCV) Quantitative Interpretation Detected( A) Not Detected. 01/26/2025 10:59 AM EDT [facility] Hepatitis C Virus (HCV) Quantitative Viral Load Log Result 5.58 <1.08 log10 IU/mL 01/26/2025 10:59 AM EDT [facility] Hepatitis C Virus (HCV) Quantitative IU/mL Result 379,781 <12 IU/mL 01/26/2025 10:59 AM EDT [facility] Blood Venous blood specimen / Unknown Venipuncture / Unknown 01/25/2025 11:49 PM EDT 01/25/2025 11:56 PM EDT Narrative [facility] - 01/26/2025 10:59 AM EDT [...] MD LAB BLOOD ORDERABLES Final R esult [facility] [address] [place] [address] * ED HIV 1/2 Antibody/Antigen Screen w/Reflex to HIV 1/2 Differentiation (01/25/2025 11:49 PM EDT) HIV 1 & 2 Antibody/Antigen Screen Non Reactive Non Reactive 01/26/2025 12:37 AM EDT [facility] Comment:Screening for HIV 1 & 2 antibodies, and P24 antigen is NONREACTIVE. No confirmatory testing is required. Blood Venous blood specimen / Unknown Venipuncture / Unknown 01/25/2025 11:49 PM EDT 01/25/2025 11:56 PM EDT us Juan Mast MD LAB BLOOD ORDERABLES Final R esult Performing Organization Address City/[facility]/ZIP Co de Phone Number [facility] [address] [place] [address] * Hemoglobin A1c (01/25/2025 11:49 PM EDT) Pathologist [facility] Hemoglobin A1c 5.0 <5.7 % 01/26/2025 9:21 AM EDT [facility] Blood Venous blood specimen / Unknown Venipuncture / Unknown 01/25/2025 11:49 PM EDT 01/25/2025 11:57 PM EDT Narrative [facility] - 01/26/2025 9:21 AM EDT HA1C Interpretive Data: Diagnosis of Diabetes: Diabetic > or = 6.5% Pre-diabetic 5.7 to 6.4% Non-diabetic < or = 5.6% Glycemic Targets for Type I and Type II Diabetics: Non- Adults <7.0% Adults <6.0% Children and Adolescents <7.5% Source: [place] [employer]. Standards of medical care in diabetes,2017. Diabetes Care.2017:40 (suppl 1):S1-S135. us Juan Mast MD LAB BLOOD ORDERABLES Final R esult Performing Organization Address City/[facility] Co de Phone Number [facility] [address] [place] [address] * (ABNORMAL) Hepatitis C Antibody - ED (01/25/2025 11:49 PM EDT) Hepatitis C Antibody Positive(A ) Negative 01/26/2025 12:52 AM EDT [facility] Blood Venous blood specimen / Unknown Venipuncture / Unknown 01/25/2025 11:49 PM EDT 01/25/2025 11:56 PM EDT us Juan Mast MD LAB BLOOD ORDERABLES Final R esult Performing Organization Address City/[facility]/ZIP Co de Phone Number [facility] [address] [place] [address] * (ABNORMAL) Prothrombin Time/INR (01/25/2025 11:49 PM EDT) Pathologist [facility] Prothrombin Time 14.6(H) 12.0 - 14.3 sec 01/26/2025 12:07 AM EDT [facility] INR 1.2(H) 0.9 - 1.1 01/26/2025 12:07 AM EDT [facility] Blood Venous blood specimen / Unknown Venipuncture / Unknown 01/25/2025 11:49 PM EDT 01/25/2025 11:52 PM EDT Narrative [facility] - 01/26/2025 12:07 AM EDT OPTIMAL INR RANGES FOR PATIENT ON ORAL ANTICOAGULANT THERAPY Prevention of venous thromboembolism INR 2.0 to 3.0 In patients with heart disease: Atrial fibrillation INR 2.0 to 3.0 Valvular heart disease INR 2.0 to 3.0 Tissue heart valves INR 2.0 to 3.0 Mechanical prosthetic valves INR 2.5 to 3.5 Prevention of recurrent MD INR 2.5 to 3.5 us Juan Mast MD LAB BLOOD ORDERABLES Final R esult [facility] [address] [place] [address] * (ABNORMAL) CBC W/O Differential (01/25/2025 11:49 PM EDT) WBC Count 14.16(H) 3.70 - 10.30 10*3/uL LAB HEMATOLOGY METHOD 01/25/2025 11:54 PM EDT [facility] RBC Count 4.20(L) 4.60 - 6.10 10*6/uL LAB HEMATOLOGY METHOD 01/25/2025 11:54 PM EDT [facility] HGB 14.1 13.7 - 17.5 g/dL LAB HEMATOLOGY METHOD 01/25/2025 11:54 PM EDT [facility] HCT 40.8 40.0 - 51.0 % LAB HEMATOLOGY METHOD 01/25/2025 11:54 PM EDT [facility] Platelet Count 209 155 - 369 10*3/uL LAB HEMATOLOGY METHOD 01/25/2025 11:54 PM EDT [facility] MCV 97 79 - 98 fL LAB HEMATOLOGY METHOD 01/25/2025 11:54 PM EDT [facility] MCH 33.6(H) 26.0 - 32.0 pg LAB HEMATOLOGY METHOD 01/25/2025 11:54 PM EDT [facility] MCHC 34.6 30.7 - 35.5 g/dL LAB HEMATOLOGY METHOD 01/25/2025 11:54 PM EDT [facility] RDW 12.8 11.5 - 14.5 % LAB HEMATOLOGY METHOD 01/25/2025 11:54 PM EDT [facility] MPV 9.5 8.8 - 12.5 fL LAB HEMATOLOGY METHOD 01/25/2025 11:54 PM EDT [facility] nRBC 0.0 <=0.0 per 100 WBCs LAB HEMATOLOGY METHOD 01/25/2025 11:54 PM EDT [facility] Blood Venous blood specimen / Unknown Venipuncture / Unknown 01/25/2025 11:49 PM EDT 01/25/2025 11:52 PM EDT Juan Mast MD LAB BLOOD ORDERABLES Final R esult [facility] [address] [place] [address] * (ABNORMAL) Basic Metabolic Panel, Plasma (01/25/2025 11:49 PM EDT) Glucose, Plasma 155(H) 74 - 99 mg/dL 01/26/2025 12:29 AM EDT [facility] BUN, Plasma 9 7 - 21 mg/dL 01/26/2025 12:29 AM EDT [facility] Creatinine, Plasma 0.65(L) 0.70 - 1.20 mg/dL 01/26/2025 12:29 AM EDT [facility] BUN/Creatinine Ratio 14 01/26/2025 12:29 AM EDT [facility] Sodium, Plasma 140 136 - 145 mmol/L 01/26/2025 12:29 AM EDT [facility] Potassium, Plasma 3.8 3.6 - 4.9 mmol/L 01/26/2025 12:29 AM EDT [facility] Chloride, Plasma 105 97 - 107 mmol/L 01/26/2025 12:29 AM EDT [facility] CO2, Plasma 24 22 - 29 mmol/L 01/26/2025 12:29 AM EDT [facility] Anion Gap 11 6 - 16 mmol/L 01/26/2025 12:29 AM EDT [facility] Total Calcium, Plasma 8.7(L) 8.9 - 10.2 mg/dL 01/26/2025 12:29 AM EDT [facility] eGFRcr 129.2 mL/min/1.7 3m*2 01/26/2025 12:29 AM EDT [facility] Comment:Reported eGFRcr in m L/min/1.73m2 is based the CKD-EPI 2020 equation that does not use a race coefficient. Blood Venous blood specimen / Unknown Venipuncture / Unknown 01/25/2025 11:49 PM EDT 01/25/2025 11:57 PM EDT us Juan Mast MD LAB BLOOD ORDERABLES Final R esult [facility] [address] [place] [address] * XR Chest 1 View (01/25/2025 11:47 [...] Kinga Sandoval MD on 01/26/2025 12:18 AM Juan Mast MD IMG XR PROCEDURES Final Resu lt documented in this encounter Visit Diagnoses Diagnosis Finger laceration, initial encounter- Primary Finger laceration, initial encounter Flexor tendon laceration of finger with open wound Flexor tendon laceration of finger with open wound, initial encounter documented in this encounter Admitting Diagnoses Diagnosis [...] hours and no response to magnesium hydroxide bupivacaine PF (Marcaine) 0.25 % injection As needed, Starting on 01/26/25 at 1300, Until 01/26/25 at 1352, Routine, Intraprocedure Given 01/26/2025 1:00 PM EDT 5 mL ceFAZolin (Ancef) injection 2 g 2 g, [...] Given 01/26/2025 12:25 AM EDT 400 mg lidocaine (Xylocaine) 1 % injection As needed, Starting on 01/26/25 at 1300, Until 01/26/25 at 1352, Routine, Intraprocedure Given 01/26/2025 1:00 PM EDT 5 mL magnesium hydroxide (Milk of Magnesia) 400 MG/5ML [...] on 01/26/25 at 0400, Until Discontinued, Routine 0430 (Given - Provid er: Dominique Willis RN)1021 (Not Given - Provider: Beverly Love - Reason: Patient/family refused)1026 (MAR Hold - Provider: Automatic Transfer Provider - Reason: Patient in procedure)1600 (Dose Auto Held - Provider: Automatic Transfer Provider)1909 ([facility] Unhold - Provider: Automatic Discharge Provider) ceFAZolin (Ancef) injection 2 g (COMPLETED) 2 g, Intravenous, Once, 1 dose, On Tue01/25/25 at 2200, STAT 2221 (Given - Provider: Cammy Paige) polyethylene glycol (Miralax) packet 17 g 17 g, Oral, Daily, First dose on 01/26/25 at 0900, Until Discontinued, Routine 1020 (Not Given - Provider: Beverly Love - Reason: Patient/family refused)1026 ([facility] Hold - Provider: Automatic Transfer Provider - Reason: Patient in procedure)1909 (MAR Unhold - Provider: Automatic Discharge Provider) Povidone-Iodine 5 % swab solution 1 Application (COMPLETED) Nasal, Once, 1 dose, On 01/26/25 at 1145, Routine 1059 (Given - Provid er: Beryl Solares RN) senna-docusate (Hetal-Colace) 8.6-50 MG per tablet 1 tablet 1 tablet, Oral, 2 times daily, First dose on Tue01/25/25 at 2335, Until Discontinued, Routine 0020 (Canceled Entry - Provider: Dominique Willis RN - Comment: handoff)1020 (Not Given - Provider: Beverly Love - Reason: Patient/family refused)1026 (MAR Hold - Provider: Automatic Transfer Provider - Reason: Patient in procedure)1909 ([facility] Unhold - Provider: Automatic Discharge Provider) sodium chloride 0.9 % flush 10 mL(Linked Group 1) 10 mL, Intravenous, Every 12 hours, First dose on Tue01/25/25 at 2335, Until Discontinued, Routine 0020 (Canceled Entry - Provider: Dominique Willis RN)1026 (SEP Hold - Provider: Automatic Transfer Provider - Reason: Patient in procedure)1135 (Dose Auto Held - Provider: Automatic Transfer Provider)190 ([facility] Unhold - Provider: Automatic Discharge Provider) sodium [...] Transfer Provider - Reason: Patient in procedure)190 ([facility] Unhold - Provider: Automatic Discharge Provider) bupivacaine [...] PRN, Starting on Tue01/25/25 at 2329, Until 01/26/25 at 1909, Routine, mild pain 0025 (Given - Provid er: Dominique Willis RN)1026 ([facility] Hold - Provider: Automatic Transfer Provider - Reason: Patient in procedure)1908 ([facility] Unhold - Provider: Automatic Discharge [...] no bowel movement for 48 hours 1026 (SEP Hold - Pro vider: Automatic Transfer Provider - Reason: Patient in procedure)1908 ([facility] Unhold - Provider: Automatic Discharge [...] 1520 (See Alternativ e - Provider: Perri Donoheu RN) sodium chloride 0.9 % flush 10 mL(Linked Group 1) 10 mL, Intravenous, As needed, Starting on Tue01/25/25 at 2328, Until 01/26/25 at 1909, Routine, line care 1026 (SEP Hold - Pro vider: Automatic Transfer Provider - Reason: Patient in procedure)1909 ([facility]P Unhold - Provider: Automatic Discharge Provider) sodium [...] 10 documented in this encounter Care Teams Labor And Employment Paralegal Relationship Specialty Start Date End Date Pcp, [place] [address] PCP - General Family Medicine 01/25/25 documented as of this encounter
--- OUTSIDE RECORDS SUMMARY | 2025-01-26 12:06 | XMS_ITS | Encounter Summary ---
Author Organization [facility] Address [address] [place] [address] Care Team Providers Care Agricultural Equipment Mechanic Name Role Phone Pcp, No Primary Care Provider Unavailabl e Reason for Visit * Auth/Cert (Routine) Specialty Diagnoses / Procedures Referred By Peggy johnston Referred To Contact Diagnoses Finger laceration, initial encounter possible tendon laceration Juan Mast MD [address] [facility] [address] [place] [address] Phone: tel: fax: [facility] [address] [place] [address] Phone: tel: Referral ID Status Reason Start Date Expiration Date Visits Re quested Visits Authorized [id number] 1 1 Encounter Details Date Type Department Care Team (Late st Contact Info) Description 01/26/2025 12:06 PM EDT Anesthesia Event [facility] [address] [place] [phone] Tunde Singh MD [address] [place] [phone] Anesthesia Record Procedure Summary Procedure Name Responsible [...] Anesth: None; Technique: Anatomical landmarks; Inserted by: Cammy EMMANUEL; Insertion Attempts: 1; Patient Tolerance: Tolerated [...] and Staff Patient location during procedure: OR COMMERCIAL LENDING RELATIONSHIP MANAGER: Ida Garsia CRNA Performed: JUAN Patient Condition Indications for airway management: anesthesia Patient position: sniffing MILS maintained throughout Final Airway Details Final airway type: LMALMA Size: 4 LMA Type: normal * Anesthesia Preprocedure Evaluation - Tunde Singh MD - 01/26/2025 10:56 AM EDT Anesthesiologist: Tunde Singh MD COMMERCIAL LENDING RELATIONSHIP MANAGER: Ida Garsia CRNA Patient: Fran Ruvalcaba HPI Fran Ruvalcaba is a 30 y.o. male with body mass index is 20.34 kg/m??. who presents with Finger laceration, initial encounter, now for REPAIR, TENDON AND NERVE (Right) Procedure Information Date/Time: 01/26/25 1130 Procedure: REPAIR, TENDON AND NERVE (Right: Hand) - tendon tray, plastics hand set, micro set. 4-0 Fiberwire, lead hand, 60 min Location: [address] OR Surgeons: Juan Mast MD Relevant [...] ABG No results found for: PHART , [id number] , PO2ART , SO2ART , BEART , CUY8GXM , HCTART , SODIUMART , POTASSIUMART , POCTCL , POCGLU , IONCALART , LACTATE No results found for: PH , PCO2 , PO2 , [id number] , BASEEXC , HCTSYR , KSYR , [...] is no recent study available for direct hbra-ye-wpxg comparison. PFTs No results found for: UYG0CLH , DCB1XTUV , GFI2SZF , FVCPRED BP Readings from Last 5 [...] Plan ASA 2 Plan was reviewed with: COMMERCIAL LENDING RELATIONSHIP MANAGER Anesthesia technique(s) discussed with the patient/family: general [...] Office Visit Matthew Umanzor [address] [place] [address] Roxanne Summers PA [address] [phone] documented as of this encounter Procedures Procedure Name Priority Date/Time Associated Diagnosis Comments PB ANESTHESIA PLACEHOLDER Routine 01/26/2025 12:11 PM EDT [place] AN ELECTIVE SUPRAGLOTTIC AIRWAY Routine 01/26/2025 12:11 PM EDT documented in this encounter Results * [place] AN ELECTIVE SUPRAGLOTTIC AIRWAY, PB ANESTHESIA PLACEHOLDER (01/26/2025 12:11 PM EDT) Narrative Ida Garsia CRNA - 01/26/2025 12:11 PM EDT Ida Garsia CRNA 01/26/2025 12:23 PM Airway Date/Time: 01/26/2025 12:11 PM Reason: elective Airway not difficult General Information and Staff Patient location during procedure: OR COMMERCIAL LENDING RELATIONSHIP MANAGER: Ida Garsia CRNA Performed: JUAN Patient Condition [...] mg documented in this encounter Care Teams Agricultural Equipment Mechanic Relationship Specialty Start Date End Date Pcp, [place] [address] PCP - General Family Medicine 01/25/25 documented as of this encounter
[2025-01-30 16:12] LABS: Hematocrit 41.2 % (42.0-52.0); Hemoglobin 14.1 g/dL (14.1-18.0); Immature Granulocytes % 0.2 %; Mean Corpuscular HGB Conc 34.2 g/dL (31.8-35.4); Mean Corpuscular Hemoglobin 33.3 pg (27.0-31.2); Mean Corpuscular Volume 97.4 fl (80-94); Nucleated Red Blood Cells % 0 %; Platelet Count 246 K/mm3 (142-424); Red Blood Count 4.23 M/mm3 (4.60-6.20); Red Cell Distribution Width-SD 46.0 fL; White Blood Count 8.2 K/mm3 (4.8-10.8)
[2025-01-30 16:25] LABS: INR 0.98 (0.9-1.1); Prothrombin Time 10.9 seconds (10.1-12.5)
--- OUTSIDE RECORDS SUMMARY | 2025-01-30 16:32 | XMS_ITS | Clinical Summary ---
Author Organization [facility] Address [address] [place] [address] Care Team Providers Care Meat Curer Name Role Phone Pcp, No Primary Care Provider Unavailabl e Allergies No known active allergies Medications acetaminophen (Tylenol) 500 MG tablet Take 2 tablets by mouth every 6 hours. 100 tablet 1 01/26/2025 Active ibuprofen 400 MG tablet Take 1 tablet by mouth every 4 hours as needed for mild pain. 100 tablet 1 01/26/2025 Active oxyCODONE (Roxicodone) 5 MG immediate release tablet Take 1 tablet by mouth every 6 hours as needed for severe pain. 15 tablet 01/26/2025 Active sulfamethoxazol e-trimethoprim (Bactrim DS) 800-160 MG tabletIndicatio ns:Finger laceration, initial encounter Take 1 tablet by mouth 2 times a day for 7 days. 14 tablet 01/26/2025 Active Active Problems Problem Noted Date Diagnosed Date Flexor tendon laceration of finger with open wou nd 01/26/2025 Finger laceration, initial encounter 01/25/2025 Encounters Date Type Department Care Team Description 01/29/2025 Patient Outreach [facility] Medicine Specialties [address] [place] [address] Rosa Hernandez 01/29/2025 Telephone [facility] [address] [place] [address] Zack Ohara, SHADI, DNP [facility] HCV W/U 01/26/2025 12:06 PM EDT Anesthesia Event [facility] [address] [place] [address] Tunde Singh MD 01/26/2025 11:30 AM EDT - 01/26/2025 2:30 PM EDT Surgery [facility] [address] [place] [phone] Juan Mast MD REPAIR, TENDON AND NERVE [[id number] (CPT )] 01/26/2025 Travel 01/25/2025 7:58 PM EDT - 01/26/2025 5:09 PM EDT Hospital Encounter [facility] [address] [place] [address] Ole Guerrero MD Kluemper, Chase T, MD Finger laceration, initial encounter (Primary Dx) Discharge Disposition: Home or Self Care 01/25/2025 Travel 01/25/2025 Orders Only External Location [address] [place] [phone] Provider, External from Last 3 Months Social History Tobacco Use Types Packs/Day Years Used Date Smoking Tobacco: Never Assessed Sex and Gender Information Value Date Recorded Sex Assigned at Not on file Legal Sex Male 1:52 PM EDT Gender Identity Not on file Sexual Orientation Not on file Last Filed Vital Signs Vital Sign Reading [...] Mass Index 20.33 01/26/2025 1:55 PM EDT Plan of Treatment Upcoming Encounters Date Type Department Care Team (Late st Contact Info) Description 02/07/2025 3:10 PM EDT Office Visit Matthew Umanzor [address] [place] [address] Roxanne Summers, PA [address] [place] [phone] Health Maintenance Due Date Last Done Comments [facility]-Depression Screening 1994 [facility]-/Child/Adol SDOH Screenings 1994 [facility]-Varicella Vaccines (2 of 2 - 2-dose childhood series) 11/01/2006 08/09/2006 HPV Vaccines (1 - Male 3-dose series) 2009 [facility]- SDOH Screenings 01/05/2012 [facility]-Adult SDOH Screenings 01/05/2012 [facility]-Hepatitis B Vaccines (1 of 3 - 19+ 3-dose series) 2013 [id number] Vaccine (2 - season) 2024 02/05/2021 [facility]-Influenza Vaccine (#1) 2025 04/25/2018, [facility]-DTaP,Tdap,and Td Vaccines (5 - Td or Tdap) 01/25/2035 01/25/2025, 10/07/2018, 02/25/2015, Additional history exists [facility]-Zoster Vaccines (1 of 2) 01/05/2044 08/09/2006 [facility]-HIV Screening Completed 01/25/2025 [facility]-Hepatitis C Screening Completed 01/25/2025 [facility]-HIB Vaccines Aged Out No longer e ligible based on patient's age to complete this topic [facility]-Hepatitis A Vaccines Aged Out No longer eligible based on patient's age to complete this topic [facility]-IPV Vaccines Aged Out No longer e ligible based on patient's age to complete this topic [facility]-Pneumococcal Vaccine: Pediatrics (0 to 5 Years) and At-Risk Patients (6 to 49 Years) Aged Out No longer eligible based on patient's age to complete this topic [facility]-Rotavirus Vaccines Aged Out No lo nger eligible based on patient's age to complete this topic Procedures Procedure Name Priority Date/Time Associated Diagnosis Comments PB ANESTHESIA PLACEHOLDER Routine 01/26/2025 12:11 PM EDT CA AN ELECTIVE SUPRAGLOTTIC AIRWAY Routine 01/26/2025 12:11 PM EDT CA REPAIR EXTEN TENDON,DORSUM FINGR,EA 01/26/2025 11:52 AM EDT Flexor tendon laceration of finger with open wound, initial encounter Special Needs lead hand, micro set, tendon tray, plastic hand set, 4-0 Fiberwire ECHO, ADULT TRANSTHORACIC COMPLETE STAT 01/26/2025 7:31 AM EDT TYPE AND SCREEN Routine 01/26/2025 12:56 AM EDT ECG ADULT Routine 01/25/2025 11:52 PM EDT HEPATITIS C VIRUS (HCV) QUANTITATIVE PCR - ED Routine 01/25/2025 11:49 PM EDT ED HIV 1/2 ANTIBODY/ANTIGEN SCREEN WITH REFLEX TO HIV I/II DIFFERENTIATION Routine 01/25/2025 11:49 PM EDT HEMOGLOBIN A1C Routine 01/25/2025 11:49 PM EDT ED PROTOCOL HIV 1/2 ANTIBODY/ANTIGEN SCREEN W/REFLEX TO HIV 1/2 ANTIBODY DIFFERENTIATION Routine 01/25/2025 11:49 PM EDT HEPATITIS C ANTIBODY - ED W/REFLEX TO HCV QUANT PCR Routine 01/25/2025 11:49 PM EDT PROTHROMBIN TIME(PT) / INR Routine 01/25/2025 11:49 PM EDT CBC W/O DIFFERENTIAL Routine 01/25/2025 11:49 PM EDT BASIC METABOLIC PANEL, PLASMA Routine 01/25/2025 11:49 PM EDT XR CHEST 1 VIEW Routine 01/25/2025 11:47 PM EDT XR MSK OUTSIDE IMAGES 01/25/2025 1:02 PM EDT from Last 3 Months Results * CA AN ELECTIVE SUPRAGLOTTIC AIRWAY, PB ANESTHESIA PLACEHOLDER (01/26/2025 12:11 PM EDT) Narrative Ida Garsia CRNA - 01/26/2025 12:11 PM EDT Ida Garsia CRNA 01/26/2025 12:23 PM Airway Date/Time: 01/26/2025 12:11 PM Reason: elective Airway not difficult General Information and Staff Patient location during procedure: OR WELDER GAS: Ida Garsia CRNA Performed: WELDER GAS Patient Condition Indications for airway management: anesthesia Patient position: sniffing MILS maintained throughout Final Airway Details Final airway type: LMALMA Size: 4 LMA Type: normal us Tunde Singh MD ANESTHESIA ORDERABLES Final R esult * ECHO, ADULT TRANSTHORACIC COMPLETE (01/26/2025 7:31 [...] mean PAP 25 mmHg DEVANG ISCV PA CA(ACCEL) 26.7 mmHg DEVANG ISCV PA acc slope 798.3 cm/s2 DEVANG ISCV RA MOD 4Ch 28 mL DEVANG ISCV VAIBHAV 15 mL/m2 DEVANG ISCV RV base 36 mm DEVANG ISCV RV Mid 29 mm DEVAGN ISCV Anatomical Region Laterality Modality Echocardiography Narrative [...] is no recent study available for direct [id number] comparison. Left Ventricle The left ventricle is [...] is no recent study available for direct [id number] comparison. us Juan Mast MD CV ECHO PROCEDURES Final Res ult * Type and Screen (01/26/2025 12:56 AM EDT) Pathologist [facility] ABO/Rh A Positive 01/25/2025 11:28 PM EDT BLOOD BANK Antibody Screen Negative 01/25/2025 11:28 PM EDT BLOOD BANK Specimen Expiration 01/29/2025 23:59 01/25/2025 11:28 PM EDT BLOOD BANK Blood Venous blood specimen / Unknown Venipuncture / Unknown 01/26/2025 12:56 AM EDT 01/26/2025 1:07 AM EDT us Juan Mast MD LAB BLOOD BANK TEST ORDERABL ES Final Result BLOOD BANK [address] [place] [address], [place] * ECG Adult (01/25/2025 11:52 PM EDT) EKG DIAGNOSIS CLASS Borderline Normal MUSE ECG Ventricular Rate 67 BPM MUSE ECG Atrial Rate 67 BPM MUSE ECG CA Interval 148 ms MUSE ECG QRSD Interval 90 ms MUSE ECG QT Interval 408 ms MUSE ECG QTC Interval 431 ms MUSE ECG P [place] 81 degrees MUSE ECG R [place] 72 degrees MUSE ECG T Wave [place] 61 degrees MUSE ECG Diagnosis Sinus rhythm with marked sinus arrhythmia MUSE ECG Diagnosis MUSE ECG Diagnosis MUSE ECG Diagnosis Confirmed by Sara Munguia ([id number]) on 01/27/2025 6:38:54 AM MUSE ECG 01/25/2025 11:5 2 PM EDT 01/27/2025 6:38 AM EDT us Juan Mast MD ECG ORDERABLES Final Result MUSE ECG * ED HIV 1/2 Antibody/Antigen Screen w/Reflex to HIV 1/2 Differentiation (01/25/2025 11:49 PM EDT) [facility] HIV 1 & 2 Antibody/Antigen Screen Non Reactive Non Reactive 01/26/2025 12:37 AM EDT [facility] Comment:Screening for HIV 1 & 2 antibodies, and P24 antigen is NONREACTIVE. No confirmatory testing is required. Blood Venous blood specimen / Unknown Venipuncture / Unknown 01/25/2025 11:49 PM EDT 01/25/2025 11:56 PM EDT us Juan Mast MD LAB BLOOD ORDERABLES Final R esult [facility] [address] [place] [address] * (ABNORMAL) Hepatitis C Virus (HCV) Quantitative PCR - ED (01/25/2025 11:49 PM EDT) [facility] Hepatitis C Virus (HCV) Quantitative Interpretation Detected( A) Not Detected. 01/26/2025 10:59 AM EDT [facility] Hepatitis C Virus (HCV) Quantitative Viral Load Log Result 5.58 <1.08 log10 IU/mL 01/26/2025 10:59 AM EDT [facility] Hepatitis C Virus (HCV) Quantitative IU/mL Result 379,781 <12 IU/mL 01/26/2025 10:59 AM EDT [facility] Blood Venous blood specimen / Unknown Venipuncture / Unknown 01/25/2025 11:49 PM EDT 01/25/2025 11:56 PM EDT Narrative [facility] - 01/26/2025 10:59 AM EDT The [facility] PharmStat M2000 HCV test is a Real Time [...] ORDERABLES Final R esult Performing Organization Address City/[facility]/ZIP Co de Phone Number [facility] [address] [place] [address] * (ABNORMAL) Hepatitis C Antibody - ED (01/25/2025 11:49 PM EDT) [facility] Hepatitis C Antibody Positive(A ) Negative 01/26/2025 12:52 AM EDT [facility] Blood Venous blood specimen / Unknown Venipuncture / Unknown 01/25/2025 11:49 PM EDT 01/25/2025 11:56 PM EDT us Juan Mast MD LAB BLOOD ORDERABLES Final R esult [facility] [address] [place] [address] * (ABNORMAL) Prothrombin Time/INR (01/25/2025 11:49 PM EDT) [facility] Prothrombin Time 14.6(H) 12.0 - 14.3 sec 01/26/2025 12:07 AM EDT [facility] INR 1.2(H) 0.9 - 1.1 01/26/2025 12:07 AM EDT [facility] Blood Venous blood specimen / Unknown Venipuncture / Unknown 01/25/2025 11:49 PM EDT 01/25/2025 11:52 PM EDT Narrative [facility] - 01/26/2025 12:07 AM EDT OPTIMAL INR RANGES FOR PATIENT ON ORAL ANTICOAGULANT THERAPY Prevention of venous thromboembolism INR 2.0 to 3.0 In patients with heart disease: Atrial fibrillation INR 2.0 to 3.0 Valvular heart disease INR 2.0 to 3.0 Tissue heart valves INR 2.0 to 3.0 Mechanical prosthetic valves INR 2.5 to 3.5 Prevention of recurrent SD INR 2.5 to 3.5 Juan Mast MD LAB BLOOD ORDERABLES Final R esult [facility] [address] [place] [address] * (ABNORMAL) CBC W/O Differential (01/25/2025 11:49 PM EDT) WBC Count 14.16(H) 3.70 - 10.30 10*3/uL LAB HEMATOLOGY METHOD 01/25/2025 11:54 PM EDT [facility] RBC Count 4.20(L) 4.60 - 6.10 10*6/uL LAB HEMATOLOGY METHOD 01/25/2025 11:54 PM EDT [facility] HGB 14.1 13.7 - 17.5 g/dL LAB HEMATOLOGY METHOD 01/25/2025 11:54 PM EDT [facility] HCT 40.8 40.0 - 51.0 % LAB HEMATOLOGY METHOD 01/25/2025 11:54 PM EDT [facility] Platelet Count 209 155 - 369 10*3/uL LAB HEMATOLOGY METHOD 01/25/2025 11:54 PM EDT [facility] MCV 97 79 - 98 fL LAB HEMATOLOGY METHOD 01/25/2025 11:54 PM EDT [facility] MCH 33.6(H) 26.0 - 32.0 pg LAB HEMATOLOGY METHOD 01/25/2025 11:54 PM EDT [facility] MCHC 34.6 30.7 - 35.5 g/dL LAB HEMATOLOGY METHOD 01/25/2025 11:54 PM EDT [facility] RDW 12.8 11.5 - 14.5 % LAB HEMATOLOGY METHOD 01/25/2025 11:54 PM EDT [facility] MPV 9.5 8.8 - 12.5 fL LAB HEMATOLOGY METHOD 01/25/2025 11:54 PM EDT [facility] nRBC 0.0 <=0.0 per 100 WBCs LAB HEMATOLOGY METHOD 01/25/2025 11:54 PM EDT [facility] Blood Venous blood specimen / Unknown Venipuncture / Unknown 01/25/2025 11:49 PM EDT 01/25/2025 11:52 PM EDT Juan Mast MD LAB BLOOD ORDERABLES Final R esult [facility] [address] [place] [address] * Hemoglobin A1c (01/25/2025 11:49 PM EDT) Hemoglobin A1c 5.0 <5.7 % 01/26/2025 9:21 AM EDT [facility] Blood Venous blood specimen / Unknown Venipuncture / Unknown 01/25/2025 11:49 PM EDT 01/25/2025 11:57 PM EDT Narrative [facility] - 01/26/2025 9:21 AM EDT HA1C Interpretive Data: Diagnosis of Diabetes: Diabetic > or = 6.5% Pre-diabetic 5.7 to 6.4% Non-diabetic < or = 5.6% Glycemic Targets for Type I and Type II Diabetics: Non- Adults <7.0% Adults <6.0% Children and Adolescents <7.5% Source: [place] [employer]. Standards of medical care in diabetes,2017. Diabetes Care.2017:40 (suppl 1):S1-S135. us Juan Mast MD LAB BLOOD ORDERABLES Final R esult Performing Organization Address City/[facility]/ZIP Co de Phone Number [facility] [address] [place] [address] * (ABNORMAL) Basic Metabolic Panel, Plasma (01/25/2025 11:49 PM EDT) Glucose, Plasma 155(H) 74 - 99 mg/dL 01/26/2025 12:29 AM EDT [facility] BUN, Plasma 9 7 - 21 mg/dL 01/26/2025 12:29 AM EDT [facility] Creatinine, Plasma 0.65(L) 0.70 - 1.20 mg/dL 01/26/2025 12:29 AM EDT [facility] BUN/Creatinine Ratio 14 01/26/2025 12:29 AM EDT [facility] Sodium, Plasma 140 136 - 145 mmol/L 01/26/2025 12:29 AM EDT [facility] Potassium, Plasma 3.8 3.6 - 4.9 mmol/L 01/26/2025 12:29 AM EDT [facility] Chloride, Plasma 105 97 - 107 mmol/L 01/26/2025 12:29 AM EDT [facility] CO2, Plasma 24 22 - 29 mmol/L 01/26/2025 12:29 AM EDT [facility] Anion Gap 11 6 - 16 mmol/L 01/26/2025 12:29 AM EDT [facility] Total Calcium, Plasma 8.7(L) 8.9 - 10.2 mg/dL 01/26/2025 12:29 AM EDT [facility] eGFRcr 129.2 mL/min/1.7 3m*2 01/26/2025 12:29 AM EDT [facility] Comment:Reported eGFRcr in m L/min/1.73m2 is based the CKD-EPI 2020 equation that does not use a race coefficient. Blood Venous blood specimen / Unknown Venipuncture / Unknown 01/25/2025 11:49 PM EDT 01/25/2025 11:57 PM EDT Juan Mast MD LAB BLOOD ORDERABLES Final R esult [facility] [address] [place] [address] * XR Chest 1 View (01/25/2025 11:47 [...] MD IMG XR PROCEDURES Final Resu lt * XR MSK OUTSIDE IMAGES (01/25/2025 1:02 PM EDT) Anatomical Region Laterality Modality Radiographic Kathryn ging 01/25/2025 1:02 PM EDT External Provider IMG XR PROCEDURES Final Result from Last 3 Months Insurance [facility] MEDICAID Advance Directives * Full Code (Latest Code Status on File) Date Activated Date Inactivated Comments 01/25/2025 11:30 PM 01/26/2025 7:14 PM Question Answer Comments I have reviewed the capacity from the link above and, if needed, have updated to appropriate status: Yes Care Teams Meat Curer Relationship Specialty Start Date End Date Pcp, No [address] [place] [address] PCP - General Family Medicine 01/25/25
--- OUTSIDE RECORDS SUMMARY | 2025-01-30 16:32 | XMS_ITS ---
Author Organization [facility] Address [address] [id number] Care Team Providers Care Leadership Program Associate Name Role Phone Pcp, No Primary Care Provider Unavailabl e Hepatitis C Program Status:Active (Active) Start date:01/25/2025 Enrollment date:01/25/2025 Continued Care and Services Coordination
--- OUTSIDE RECORDS SUMMARY | 2025-01-30 16:32 | XMS_ITS | Encounter Summary ---
Author Organization Healthcare Address [address] [place] [address] Care Team Providers Care Staff Physician Name Role Phone Pcp, No Primary Care Provider Unavailabl e Encounter Details Date Type Department Care Team (Late st Contact Info) Description 01/29/2025 Patient Outreach [facility] [address] [place] [address] Rosa Hernandez Social History Tobacco Use Types Packs/Day Years Used Date Smoking Tobacco: Never Assessed Sex and Gender Information Value Date Recorded Sex Assigned at Not on file Legal Sex Male 1:52 PM EDT Gender Identity Not on file Sexual Orientation Not on file documented as of this encounter Miscellaneous Notes * Progress Notes - Rosa Hernandez - 01/29/2025 5:12 PM EDT Pt missed [facility] TH appt on this day. SWer attempted to contact pt to reschedule appt. SWer called [phone] and vm is not set up. SWer sent a text requesting f/u. LTC team will attempt contact in 1 week. documented in this encounter Plan of Treatment Upcoming Encounters Date Type Department Care Team (Late st Contact Info) Description 02/07/2025 3:10 PM EDT Office Visit Matthew Noé [address] [place] [address] Roxanne Summers PA [address] [place] [address] documented as of this encounter Visit Diagnoses Not on filedocumented in this encounter Care Teams Staff Physician Relationship Specialty Start Date End Date Pcp, No [address] [place] [address] PCP - General Family Medicine 01/25/25 documented as of this encounter
--- OUTSIDE RECORDS SUMMARY | 2025-01-30 16:32 | XMS_ITS | Encounter Summary ---
Author Organization Healthcare Address [address] [place] [address] Care Team Providers Care [facility] Name Role Phone Pcp, No Primary Care Provider Unavailabl e Encounter Details Date Type Department Care Team (Late st Contact Info) Description 01/25/2025 Orders Only External Location [address] [place] [phone] Provider, External Social History Tobacco Use Types Packs/Day Years [...] Cammy Paige documented as of this encounter Plan of Treatment Upcoming Encounters Date Type Department Care Team (Late st Contact Info) Description 02/07/2025 3:10 PM EDT Office Visit Matthew Noé [address] [place] [phone] Roxanne Summers PA [address] [place] [phone] documented as of this encounter Procedures Procedure Name Priority Date/Time Associated Diagnosis Comments XR MSK OUTSIDE IMAGES 01/25/2025 1:02 PM EDT documented in this encounter Results * XR MSK OUTSIDE IMAGES (01/25/2025 1:02 PM EDT) Anatomical Region Laterality Modality Radiographic Kathryn ging 01/25/2025 1:02 PM EDT us External Provider IMG XR PROCEDURES Final Result documented in this encounter Visit Diagnoses Not on filedocumented in this encounter Care Teams [facility] Relationship Specialty Start Date End Date Pcp, [place] [address] PCP - General Family Medicine 01/25/25 documented as of this encounter
--- OUTSIDE RECORDS SUMMARY | 2025-01-30 16:32 | XMS_ITS | Encounter Summary ---
Author Organization Healthcare Address [address] [place] [address] Care Team Providers Care Commercial Sheet Metal Foreman Name Role Phone Pcp, No Primary Care Provider Unavailabl e Encounter Details Date Type Department Care Team (Latest Contact Info) Description 01/26/2025 Travel Social History Tobacco Use Types Packs/Day Years [...] Month) No 01/26/2025 1:55 PM EDT Mann Donohue, RN * Calculated C-SSRS Risk Score (Lifetime/Recent) Answer Date of Assessment Author No Risk Indicated 01/26/2025 1:55 PM EDT Perri Donohue, RN documented as of this encounter Plan of Treatment Upcoming Encounters Date Type Department Care Team (Late st Contact Info) Description 02/07/2025 3:10 PM EDT Office Visit Turadelaida Hand [address] [place] [address] Roxanne Summers PA [address] [address] documented as of this encounter Visit Diagnoses Not on filedocumented in this encounter Care Teams Commercial Sheet Metal Foreman Relationship Specialty Start Date End Date Pcp, No [address] [place] [address] PCP - General Family Medicine 01/25/25 documented as of this encounter
--- OUTSIDE RECORDS SUMMARY | 2025-01-30 16:32 | XMS_ITS | Encounter Summary ---
Author Organization [facility] Address [address] [place] [address] Care Team Providers Care Meter Repairer Helper Name Role Phone Pcp, No Primary Care Provider Unavailabl e Reason for Visit * Reason Onset Date Comments [facility] HCV W/U 01/29/2025 Encounter Details Date Type Department Care Team (Late st Contact Info) Description 01/29/2025 Telephone [facility] Specialties [address] [place] [address] Zack Ohara APRN, DNP [address] [place] [address] [facility] HCV W/U Social History Tobacco Use Types Packs/Day Years Used Date Smoking Tobacco: Never Assessed Sex and Gender Information Value Date Recorded Sex Assigned at Not on file Legal Sex Male 1:52 PM EDT Gender Identity Not on file Sexual Orientation Not on file documented as of this encounter Miscellaneous Notes * Telephone Encounter - Alexandra Grove RN - 01/30/2025 9:44 AM EDT Received call from pt's on 01/30/25 -stating pt has decided to seek care closer to home d/t travel to [place] from [place]. * Telephone Encounter - Zack Ohara APRN, DNP - 01/29/2025 3:07 PM EDT TH attempt; no show to video and no answer to [phone]; I sent message to return call to clinic. documented in this encounter Plan of Treatment Upcoming Encounters Date Type Department Care Team (Late st Contact Info) Description 02/07/2025 3:10 PM EDT Office Visit Matthew Umanzor [address] [place] [phone] Roxanne Summers PA [address] [address] documented as of this encounter Visit Diagnoses Not on filedocumented in this encounter Care Teams Meter Repairer Helper Relationship Specialty Start Date End Date Pcp, Marilee [address] [place] [address] PCP - General Family Medicine 01/25/25 documented as of this encounter
--- OUTSIDE RECORDS SUMMARY | 2025-01-30 16:33 | XMS_ITS | Encounter Summary ---
Author Organization Healthcare Address [address] [place] [address] Care Team Providers Care Rig Supervisor Name Role Phone Pcp, No Primary Care Provider Unavailabl e Encounter Details Date Type Department Care Team (Latest Contact Info) Description 01/25/2025 Travel Social History Tobacco Use Types Packs/Day Years Used Date Smoking Tobacco: Never Assessed Sex and Gender Information Value Date Recorded Sex Assigned at Not on file Legal Sex Male 1:52 PM EDT Gender Identity Not on file Sexual Orientation Not on file documented as of this encounter Functional Status * Calculated C-SSRS Risk Score (Lifetime/Recent) Answer Date of Assessment Author No Risk Indicated 01/25/2025 8:07 PM EDT Cammy Robins * Question Answer Date of Assessment Author 1. Wish to be (Past 1 Month) No 025 8:07 PM EDT Cammy Paige 2. Non-Specific Active Suici arnulfo Thoughts (Past 1 Month) No 01/25/2025 8:07 PM EDT Carolee Paige 6. Suicidal Behavior (Lifetime) No 8:07 PM EDT Cammy Paige documented as of this encounter Plan of Treatment Upcoming Encounters Date Type Department Care Team (Late st Contact Info) Description 02/07/2025 3:10 PM EDT Office Visit Turadelaida Hand [address] [place] [address] Roxanne Summers, MARISOL [address] [place] [phone] documented as of this encounter Visit Diagnoses Not on filedocumented in this encounter Care Teams Rig Supervisor Relationship Specialty Start Date End Date Pcp, No [address] [place] [address] PCP - General Family Medicine 01/25/25 documented as of this encounter
[2025-01-30 16:51] LABS: Alanine Aminotransferase 51 U/L (12-78); Albumin Level 4.3 g/dl (3.5-5.0); Albumin/Globulin Ratio 1.8 (1.1-1.8); Alkaline Phosphatase 70 U/L (38-126); Anion Gap 13.2 mEq/L (5-15); Aspartate Amino Transferase 54 U/L (17-59); Bilirubin,Total 0.5 mg/dl (0.2-1.3); Blood Urea Nitrogen 9 mg/dl (9-20); Calcium 9.5 mg/dl (8.4-10.2); Carbon Dioxide 28 mmol/L (22.0-30.0); Chloride 101 mmol/L (98-107); Creatinine,Serum 0.90 mg/dl (0.66-1.25); Estimated Glomerular Filt Rate 98 ml/min (>60); GFR (African American) 119 ML/MIN (>60); Globulin 2.4 g/dL (1.3-3.2); Glucose 68 mg/dl (74-100); Potassium 4.2 mmoL/L (3.5-5.1); Sodium 138 mmol/L (136-145); Total Protein,Serum 6.7 g/dl (6.3-8.2)
[2025-01-30 17:43] LABS: Vitamin B12 953 pg/mL (239-931)
[2025-01-30 18:20] LABS: Folate 2.64 ng/mL
[2025-01-31 10:25] LABS: Hep A Ab, Total Negative (Negative); Hep B Core Ab, Total Negative (Negative); Hep B Surface Ab, Qual Reactive (.); Hepatitis B Surface Antigen Negative (Negative)
== END 2025-01-30 23:59 | disposition home or self-care (01) ==
LOC: LAB.DROPOF 16:30
PROVIDERS: PCP Internal Medicine; Visit Provider Internal Medicine
DX: B19.20 Unspecified viral hepatitis C without hepatic coma (principal); R71.8 Other abnormality of red blood cells; E53.8 Deficiency of other specified B group vitamins
CPT/HCPCS: 80053; 82607; 82746; 85025; 85610; 86704; 86706; 86708; 87340; 87902

== ENCOUNTER 2025-02-07 09:46 | Outpatient (CLI) | payer MEDICAID, SELFPAY ==
--- OUTSIDE RECORDS SUMMARY | 2025-01-25 19:58 | XMS_ITS | Encounter Summary ---
Author Organization [facility] Address [address] [place] [address] Care Team Providers [employer] Name Role Phone Pcp, No Primary Care Provider Unavailabl e Reason for Referral * Consultation (Routine) - Authorized Specialty Diagnoses / Procedures Referred By Peggy johnston Referred To Contact Hand Surgery Diagnoses Finger laceration, initial encounter Zoila Alonso MD [address] [place] [address] Phone: tel: fax: [facility] [address] [place] [address] Phone: tel: fax: Referral ID Status Reason Start Date Expiration Date Visits Requested Visits Authorized [id number] Authorized Specialty Services Required 01/26/2025 07/28/2026 1 1 Scheduling Instructions Post op follow up [address] Mast Reason for Visit * Reason Comments Laceration * Auth/Cert (Routine) Specialty Diagnoses / Procedures Referred By Peggy t Referred To Contact Diagnoses Finger laceration, initial encounter possible tendon laceration Juan Mast MD [address] [address] Phone: tel: fax: [facility] [address] [place] [phone] Phone: tel: Referral ID Status Reason Start Date Expiration Date Visits Re quested Visits Authorized [id number] 1 1 Encounter Details Date Type Department Care Team ([facility] st Contact Info) Description 01/25/2025 7:58 PM EDT - 01/26/2025 5:09 PM EDT Hospital Encounter [facility] [address] [place] [address] Tamar Wilson MD [address] [place] [address] Juan Mast MD [address] [place] [address] Finger laceration, initial encounter (Primary Dx) Discharge Disposition: Home or Self Care Social History Tobacco Use Types Packs/Day Years Used Date Smoking Tobacco: Never Assessed Sex and Gender Information Value Date Recorded Sex Assigned at Not on file Legal Sex Male 1:52 PM EDT Gender Identity Not on file Sexual Orientation Not on file documented as of this encounter Last Filed Vital Signs Vital Sign Reading Time Taken Comments Blood Pressure 122/82 01/26/2025 3:15 PM EDT Pulse 56 01/26/2025 3:15 PM EDT Temperature 36.8 C (98.2 F) 01/26/2025 3:45 PM EDT Respiratory Rate 12 01/26/2025 3:15 PM EDT Oxygen Saturation 100% 01/26/2025 3:15 PM EDT Inhaled Oxygen Concentration - - Weight 68 kg (149 lb 14.6 oz) 01/26/2025 1:55 PM EDT Height 182.9 cm (6' 0.01 ) 01/26/2025 1:55 PM ED T Body Mass Index 20.33 01/26/2025 1:55 PM EDT documented in this encounter Functional Status * Question Answer Date of Assessment Author 2. Non-Specific Active Suici arnulfo Thoughts (Past 1 Month) No 01/26/2025 1:55 PM EDT Mann Donohue RN * Calculated C-SSRS Risk Score (Lifetime/Recent) Answer Date of Assessment Author No Risk Indicated 01/26/2025 1:55 PM EDT Perri Donohue RN * Question Answer Date of Assessment Author 1. Wish to be (Past 1 Month) No 025 8:07 PM EDCammy Fuller 6. Suicidal Behavior (Lifetime) No 8:07 PM EDT Cammy Paige documented as of this encounter Discharge Instructions * Discharge Instructions* Zoila Alonso MD - 01/26/2025 1:59 PM EDT Post-Operative Instructions: You will maintain operative dressing in place until your follow-up appointment. Keep the splint dry, clean, and intact. For showers, use a plastic bag to cover it and prevent it from getting wet Should be no weight bearing for the next 2 weeks. Elevate your extremity above your heart while resting, this will help with swelling and pain We will see back in clinic for wound check and likely suture removal in 2 weeks. At that time can discuss hand therapy referral vs release to activity as tolerates. We have provided you medication for pain control. Do not drive while on opioids medications. You may also take tylenol and ibuprofen unless your surgeon tells you otherwise. If there are any issues, please call our office. Reasons to call: Feels warm or hot to the touch Is red or dark pink Is tight or swollen and looks shiny Becomes more tender or sore to the touch Wound smells bad Wound is draining pus, bleeding or coming open Temperature is above 101.5 F Pain is not relieved by medications documented in this encounter Medications at Time of Discharge acetaminophen (Tylenol) 500 MG tablet Take 2 tablets by mouth every 6 hours. 100 tablet 1 01/26/2025 ibuprofen 400 MG tablet Take 1 tablet by mouth every 4 hours as needed for mild pain. 100 tablet 1 01/26/2025 sulfamethoxazole- trimethoprim (Bactrim DS) 800-160 MG tabletIndications :Finger laceration, initial encounter Take 1 tablet by mouth 2 times a day for 7 days. 14 tablet 01/26/2025 02/02/2025 oxyCODONE (Roxicodone) 5 MG immediate release tablet Take 1 tablet by mouth every 6 hours as needed for severe pain. 15 tablet 01/26/2025 01/30/2025 documented as of this encounter Miscellaneous Notes * Anesthesia PACU Signout - Marcelo Bradley DO - 01/26/2025 3:52 PM EDT Patient: Fran Ruvalcaba Anesthesia Type: general Vitals Value Taken Time BP 116/76 01/26/25 15:30 Temp 36.6 ??C (97.9 ??F) 01/26/25 13:55 Pulse 52 01/26/25 15:45 Resp 12 01/26/25 15:44 SpO2 100 % 01/26/25 15:45 Vitals shown include unfiled device data. Anesthesia PACU Signout Patient location during evaluation: PACU Patient participation: complete - patient participated Level of consciousness: awake Pain management: adequate (pain score 0-3) Airway patency: natural airway Hydration status: acceptable PONV: none Cardiovascular status: acceptable and hemodynamically stable Respiratory status: acceptable, nonlabored ventilation and room air Discharge Disposition: admit to inpatient unit Cosigned by Herve Le MD at 01/27/2025 3:42 PM EDT Associated attestation - Herve Le MD - 01/27/2025 3:42 PM EDT I saw and evaluated the patient with the resident/fellow. I discussed the case with the resident/fellow and agree with the findings and plan as documented. * Op Note - Juan Mast MD - 01/26/2025 12:23 PM EDT Operative Note Date: 01/26/25 Location: [facility] Name: Fran Ruvalcaba, : 1995, Diagnoses: Pre-op Diagnosis Flexor tendon laceration of finger with open wound, initial encounter Post-op Diagnosis FDP and FDS laceration ring finger FDP and FDS laceration small finger Ulnar digital nerve lacertion small finger Procedure(s): Repair of FDP tendon ring finger Repair of FDP tendon small finger Ulnar digital nerve repair Irrigation and debridement Attending Surgeon(s): * Juan Mast - Primary Tree Sapper(s): * Zoila Alonso MD - Resident - Assisting Anesthesia: General ASA: II Blood Administration: Blood Product Administration History None Estimated Blood Loss: Minimal Drains: * None in log * Indications: Fran Ruvalcaba is an 30 y.o. male who is having surgery for Flexor tendon laceration of finger with open wound, initial encounter. Given concern for flexor tendon injury decision was made to proceed to the operating room for incision and drainage with the exploration and plan to repair the flexor tendons as well as possible digital nerve Narrative: The patient was taken from the preoperative area to the operating room on stretcher and transferredthe operating table in supine position. Anesthesia was induced the bed was rotated 90?? with the tourniquet applied to the upper arm and set at 250 mm Hg. The patient was then prepped and draped in sterile fashion and time-out was conducted to verify patient site and procedure. A Enzo style incision was designed using the patient's prior laceration over the ring and small finger with a markingpen. The hand was then exsanguinated with an Esmarch and the tourniquet was inflated. Tenotomy scissor was used in a spreading fashion to the bone up both wounds and the wounds were both thoroughly ir rigated. Incision was then made 1st on the ring finger with a 15 blade scalpel and dissection was done with tenotomy scissors in a spreading fashion exposing the flexor tendon sheath underneath. Notably the FDP and FDS were both transected with the FDS being transected just under the A3 arleen of the insertion. The FDP tendon was then pulled out proximally from the palm and secured in place with a hypo needle. The digital nerves were both located and noted to be intact. We then decided to proceed with FDP only repair. The proximal FDS and remnant of the stump were both trimmed. A 3-0 FiberWire was then used to repair the tendon and with the using a modified Ivory and then was reinforced with a horizontal mattress. We then proceeded with exploration of the small finger in a similar fashion. The ulnar digital nerve was noted to be transected. The FDP and FDS tendons were also both notedto be transected. The FDP was then added to be incredibly distal at the stump. Decision was made to proceed with the FDP only repair as well on this finger. The A3 arleen and A4 arleen were both opened in order to allow for repair. There was notably a laceration of the volar plate of the PIP. The the ulnar digital nerve was repaired 1st using a 8 0 nylon suture. The FDP tendon was then repaired in a similar fashion with a 3-0 FiberWire using a modified Ivory and then reinforced with a horizontal mattress. The wound was then thoroughly irrigated and then closed with a 3-0 chromic suture. Thepatient was then cleaned and dressings were applied in form of a dorsal blocking splint. The tourniquet was released and the fingers were pink and well perfused. The patient was then awoken and takento PACU in stable condition. There were NO signs of surgical site infection (SSI) present at the time of surgery (PATOS). Complications: None; patient tolerated the procedure well. Submitted by: Zoila Alonso MD - 01/26/2025 * Significant Event - Sebastian aMdera MD - 01/26/2025 7:53 AM EDT Orthopaedic Surgery Interim Summary To OR today for wound exploration and possible tendon repair. Juan Antonio Madera MD PGY-2, Orthopaedic Surgery Psychiatric Orthopaedic Trauma Service Pager: [phone] Orthopaedic Recon/Spine/Foot and Ankle Service Pager: [phone] * H&P - Juan Mast MD - 01/26/2025 12:48 AM EDTAssociated Order(s): Consult to Orthopaedic Surgery Consult to Orthopaedic Surgery Consult performed by: Sebastian Madera MD Consult ordered by: Tamar Wilson MD Orthopaedic Hand Surgery Consult/H&P Time consulted: 2149 Time of patient evaluation: 2199 Chief Complaint: R hand laceration HPI: Fran Ruvalcaba is a 30 y.o. 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 Patient was then unable to flex his ring and small fingers at the PIP or DIP. He also has some numbness/paresthesias of the ulnar side of the small finger. He was seen at an outside hospital where he received Tdap in [facility] and was transferred here for further evaluation. Last Meal: 01/25 Past Medical History: Past Medical History[1] Family History: Reviewed and found to be non contributory to HPI/ml Family or Personal History of DVT/PE: denies MRSA history: denies Metal Allergies: denies Tobacco: Half pack a day Alcohol: reports Illicit substance use: denies Lives in [place], [place] Occupation/Employment: Disability Ambulation: Without assistive devices Past Surgical History: Surgical History[2] Medications: Medications Ordered Prior to Encounter[3] Allergies: Allergies[4] ROS: A 14 point review of systems was conducted and was negative except aforementioned in the HPI, and if present the following systems listed below: Physical Exam: Vitals: 01/26/25 0014 BP: 113/64 Pulse: 57 Resp: Temp: 36.5 ??C (97.7 ??F) SpO2: 99% General: Alert. In no acute distress. Speech is easily understandable, and the patient answers all questions appropriately. Psych: Appropriate mood and affect Eyes: EOMI Resp: Good effort, symmetric chest expansion, no respiratory difficulty CV: No lymphedema, peripheral perfusion intact, pulses as below Musculoskeletal Exam: Chest: Clavicles non tender to palpation Pelvis: Stable to AP/Lat compression RUE: Transverse volar lacerations just below the PIP in the ring and small fingers with exposed subcutaneous tissue, not able to visualize tendon. Nontender to palpation of the distal phalanx of the smallfinger. Loss of cascade in the SF and LF. 0/5 FDS/FDP in both the small and ring finger. 4/5 EDC, paresthesias in the small finger, sensation intact to light touch otherwise in the median/ulnar/radial nerve distributions. Two-point discrimination 13 mm in the ulnar small finger, 6 mm of the radial side of the small finger. 6 mm on both the ulnar and radial aspect of the long finger. Signal on Doppler on both the radial and ulnar aspects of the ring and small finger at the distal phalanxes, capillary refill less than 2 seconds in each digit. Imaging: Radiographic studies were personally reviewed and demonstrate the following: Chronic appearing fracture of the SF distal phalanx, otherwise no acute osseous abnormalities Assessment & Plan: Fran Ruvalcaba is a 30 y.o. male with the following orthopedic injuries: R RF/SF Zone II flexor tendon injury -Received Tdap/Ancef -Irrigated w/ NS and loosely approximated with chromic sutures -Placed in dorsal blocking splint -NPO since midnight -Admitted overnight for possible flexor tendon repair today Juan Antonio Madera MD PGY-2, Orthopaedic Surgery Psychiatric Orthopaedic Trauma Service Pager: [phone] Orthopaedic Recon/Spine/Foot and Ankle Service Pager: [phone] [1] History reviewed. No pertinent past medical history. [2] History reviewed. No pertinent surgical history. [3] No current facility-administered medications on file prior to encounter. No current outpatient medications on file prior to encounter. [4] No Known Allergies * Care Plan - Dominique Willis RN - 01/26/2025 12:41 AM EDT Problem: Adult Inpatient Plan of Care Goal: Plan of Care Review Outcome: Ongoing, Progressing Flowsheets (Taken 01/26/2025 0041) Progress: no change Outcome Evaluation: discussed upcoming surgery in am, pt verbalized understanding Plan of Care Reviewed With: patient Goal: Patient-Specific Goal (Individualized) Outcome: Ongoing, Progressing Goal: Absence of Hospital-Acquired Illness or Injury Outcome: Ongoing, Progressing Goal: Optimal Comfort and Wellbeing Outcome: Ongoing, Progressing Goal: Readiness for Transition of Care Outcome: Ongoing, Progressing * ED Provider Notes - Tamar [facility] MD - 01/25/2025 6:12 PM EDT - HPI Chief Complaint Patient presents with Laceration [facility] Note Fran Ruvalcaba is a 30 y.o. male who presents to ED with laceration. Pt reports left hand injury from a kitchen knife. Pt presents from OSH with hand injury. Pt was given Tdap while at OSH. Pt reports that he has had difficulty bending his hand due to pain, and OSH was concerned about possible tendon involvement. Patient denies fever, chills, cough, chest pain, shortness of breath, nausea, vomiting, and diarrhea. MAIN ED NOTE//Betsy Howe MD I assumed full responsibility for this patient after transfer to Main ED from [facility]. I personally performed my own history, ROS, and physical. I agree with the above [facility] documentation, however full history, physical and other information is as follows: Fran Ruvalcaba is a 30 y.o. Male with no pertinent or reported past medical history that presents to the emergency department with laceration or R hand 4th and 5th digit. Patient states bleeding wascontrolled at home. OSH XR of hand in [facility]. Radiology read of R hand with no acute osseous fracture or foreign body. This patient presents alone and serves as history provider. History provided by: Patient hourly sign language interpreter used: No Patient History Past Medical History[1] Surgical History[2] Family History[3] Social History[4] Allergies: Allergies[5] Physical Exam ED Triage Vitals [01/25/25 1824] Temp Heart Rate Resp BP 36.7 ??C (98 ??F) 101 16 109/79 SpO2 Temp Source Heart Rate Source Patient Position 98 % Oral -- -- BP Location FiO2 (%) -- -- Physical Exam Constitutional: General: He is not in acute distress. HENT: Head: Normocephalic. Comments: No facial swelling Mouth/Throat: Mouth: Mucous membranes are moist. Pharynx: Oropharynx is clear. Cardiovascular: Rate and Rhythm: Normal rate. Pulmonary: Effort: Pulmonary effort is normal. No respiratory distress. Breath sounds: Normal air entry. Comments: Speaking full sentences. Symmetric chest rise Abdominal: General: There is no distension. Musculoskeletal: General: No deformity. Normal range of motion. Right hand: Laceration present. Cervical back: Normal range of motion. Comments: See media for picture of laceration. ROM limited-unable to completely flex 4th and 5th digit. Neurological: Mental Status: He is alert. Mental status is at baseline. Comments: Awake Psychiatric: Behavior: Behavior normal. Apolinar Coma Scale Score: 15 ED Course & MDM PIT Note Date/Time: 01/25/2025/7:48 PM Entered by Gus Peraza, acting as scribe for Dr. Joshua Corbin Scribe Attestation: This note was dictated to me, Gus Peraza, acting as a scribe for Dr. Joshua Corbin Attending Attestation: The documentation was recorded by Gus Peraza acting as scribe in my presence at the time of the encounter and accurately reflects the service I personally performed. - Assessment: 30 y.o. male presents to ED with complaint of laceration over 4th and 5th right hand digit. Differential Diagnosis: osseous injury, tendon injury, joint infection, cellulitis In order to fully explore the differential diagnosis the following treatments and tests were ordered: ED Medication Administration from 01/25/2025 1524 to 01/25/2025 2316 Date/Time Order Dose Route Action 01/25/2025 2147 EDT acetaminophen (Tylenol) tablet 1,000 mg 1,000 mg Oral Given 01/25/2025 2221 EDT ceFAZolin (Ancef) injection 2 g 2 g Intravenous Given All Other Orders Ordered Status Ordering Provider 01/25/25 2223 NPO diet Diet effective midnight Acknowledged T[facility] I 01/25/25 2223 Adult diet Diet texture: Regular Diet effective now Acknowledged [facility] I 01/25/252118 Consult to Orthopaedic Surgery Once Specialty: Orthopaedic Surgery Provider: (Not yet assigned) Acknowledged BETSY HOWE Attending MDM: Patient is sent from outside hospital for hand surgery consultation. Those records were reviewed. Otherwise EHR was noncontributory. No records available. Labs show leukocytosis of unclear significance. Hyperglycemia. Hep C positive. Chest x-ray was ordered and independently interpreted. It showed no acute airspace disease. No pneumothorax. No rib fractures noted. Films from outside hospital were reviewed. Hand films do not show acute fracture. Rhythm strip independently interpreted. It showed sinus arrhythmia. Heart rate approximately 70. An interactive consultation was obtained with hand surgery service. Management was discussed. Patient will be admitted for further evaluation and management, flexor tendon repair, and probable antibiotics. ED Course as of 01/27/25 1522 TueJan 25, 2025 2228 Ancef given per hand surgery requests [MR] 2248 ConsultedOrthopedic Surgery, and had an interactive discussion regarding further evaluation and recommendations for the management of hand laceration. [MR] 2323 Patient ultimately admitted to Orthopaedics for further evaluation and management. [CS] ED Course User Index [CS] Bere Nicole DO [MR] Betsy Howe MD Clinical Impressions as of 01/27/25 1522 Finger laceration, initial encounter Social Determinates of Health Risks (including Economic Stability, Education and level of understanding, Healthcare access and quality and concerning social factors): Poor health literacy Ultimately, this patient was was signed out to the oncoming provider (Signed Out) Patient care assumed by oncoming provider, DO Bonnie, at shift change, tentative plan at the time of sign-out was pending ortho repair ED Prescriptions None Thank you for allowing me to participate in your care. Betsy Howe MD Emergency Medicine PGY 1 Betsy Howe MD Resident 01/25/25 7797 Tamar Johnson MD, personally saw the patient, performed critical or garzon portions of the service including being present and available at all procedures, and discussed the care with the Resident. I saw and evaluated the patient. I discussed the case with the resident and agree with the findingsand plan as documented. [1] History reviewed. No pertinent past medical history. [2] History reviewed. No pertinent surgical history. [3] No family history on file. 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 Sent for hand specialist from OSH. GivenTdap at OSH. * Progress Notes - Bere Nicole DO - 01/25/2025 6:12 PM EDT ED TRANSFER OF CARE NOTE Transferring provider: Brant Phipps attending: Cesar PEPE Time: 10pm I received sign-out and accepted care of this patient from the previous ED providers caring for this patient. I reviewed the patient's history, exam, work- up, and treatment plan up to this point. Please see the primary ED Provider Note for complete elements of the history, physical exam, and ED course. PERTINENT HISTORY: In brief, Fran Ruvalcaba is a 30 y.o. male presented to the ED for evaluation of laceration. Please see initial provider note for more details. PENDING: I accepted care of this patient from the previous provider while waiting for evaluation and/or recommendations from: Orthopedics. Ultimately, the aforementioned service recommended admissionto their service. ED Medication Administration from 01/25/2025 1524 to 01/25/20252324 Date/Time Order Dose Route Action 01/25/2025 2147 EDT acetaminophen (Tylenol) tablet 1,000 mg 1,000 mg Oral Given 01/25/20252220 EDT ceFAZolin (Ancef) injection 2 g 2 g Intravenous Given ED COURSE: ED Course as of 01/25/252324Jan 25, 20258 Ancef given per hand surgery requests [MR] 2248 ConsultedOrthopedic Surgery, and had an interactive discussion regarding further evaluation and recommendations for the management of hand laceration. [MR] 2323 Patient ultimately admitted to Orthopaedics for further evaluation and management. [CS] ED Course User Index [CS] Bere Nicole DO [MR] Betsy Howe MD Clinical Impressions as of 01/25/252324 Finger laceration, initial encounter Ultimately, this patient Was admitted (Admission) The encounter diagnosis was Finger laceration, initial encounter.. Patient believed to require admission for the listed diagnoses. The orthopaedics service was consulted for admission andwas agreeable to admit to Acute Floor (Med/Surg). ED Prescriptions None - Bere Nicole DO Cosigned by Tamar Wilson MD at 01/27/2025 12:33 PM EDT Associated attestation - Tamar Wilson MD - 01/27/2025 12:33 PM EDT I saw and evaluated the patient with the resident/fellow. I discussed the case with the resident/fellow and agree with the findings and plan as documented. documented in this encounter Plan of Treatment Upcoming Encounters Date Type Department Care Team (Late st Contact Info) Description 02/07/2025 3:10 PM EDT Office Visit Matthew Umanzor [address] [place] [phone] Roxanne Summers, [place] [address] [phone] Scheduled Referrals Name Type Priority Associated Diagnoses Orde r Schedule Hand Surgery Outpatient Referral Routine Finger laceration, initial encounter Expected: 02/09/2025 (Approximate), Expires: 07/30/2026 documented as of this encounter Procedures Procedure Name Priority Date/Time Associated Diagnosis Comments NC REPAIR EXTEN TENDON,DORSUM FINGR,EA 01/26/2025 11:52 AM EDT Flexor tendon laceration of finger with open wound, initial encounter Special Needs lead hand, micro set, tendon tray, plastic hand set, 4-0 Fiberwire ECHO, ADULT TRANSTHORACIC COMPLETE STAT 01/26/2025 7:31 AM EDT TYPE AND SCREEN Routine 01/26/2025 12:56 AM EDT ECG ADULT Routine 01/25/2025 11:52 PM EDT ED HIV 1/2 ANTIBODY/ANTIGEN SCREEN WITH REFLEX TO HIV I/II DIFFERENTIATION Routine 01/25/2025 11:49 PM EDT ED PROTOCOL HIV 1/2 ANTIBODY/ANTIGEN SCREEN W/REFLEX TO HIV 1/2 ANTIBODY DIFFERENTIATION Routine 01/25/2025 11:49 PM EDT HEPATITIS C VIRUS (HCV) QUANTITATIVE PCR - ED Routine 01/25/2025 11:49 PM EDT HEPATITIS C ANTIBODY - ED W/REFLEX TO HCV QUANT PCR Routine 01/25/2025 11:49 PM EDT PROTHROMBIN TIME(PT) / INR Routine 01/25/2025 11:49 PM EDT CBC W/O DIFFERENTIAL Routine 01/25/2025 11:49 PM EDT HEMOGLOBIN A1C Routine 01/25/2025 11:49 PM EDT BASIC METABOLIC PANEL, PLASMA Routine 01/25/2025 11:49 PM EDT XR CHEST 1 VIEW Routine 01/25/2025 11:47 PM EDT documented in this encounter Results * ECHO, ADULT TRANSTHORACIC COMPLETE (01/26/2025 7:31 AM EDT) BSA 1.88 m2 DEVANG ISCV Height 182.9 DEVANG ISCV Weight 67.6 DEVANG ISCV LVIDd 45 mm DEVANG ISCV IVSd 8 mm DEVANG ISCV LVPWd 9 mm DEVANG ISCV LV MASS(C)D 122 g DEVANG ISCV [facility] CV ECHO LV MASS INDEX 65 g/m2 DEVANG ISCV LV RWT 0.38 mm DEVANG ISCV LVIDs 32 mm DEVANG ISCV LVOT diam 17 mm DEVANG ISCV LVOT AREA 2.3 cm2 DEVANG ISCV Ao Root Diam 28 mm DEVANG ISCV Asc Ao Diam 27 mm DEVANG ISCV MPA diam 17 mm DEVANG ISCV MPA area 2.3 cm2 DEVANG ISCV LAV(MOD-4ch) 34 mL DEVANG ISCV MV E Vmax 121.1 cm/s DEVANG ISCV MV A Vmax 56.1 cm/s DEVANG ISCV MV E/A 2.2 cm/s DEVANG ISCV LV Sept e' Alexis 12.5 cm/s DEVANG ISCV Sep E/e' 9.7 DEVANG ISCV LV Lat e' Velocity 19.6 cm/s DEVANG ISCV Lat E/e' 6.2 DEVANG ISCV Avg E/e' 7.9 DEVANG ISCV RV s' Alexis 13.1 cm/s DEVANG ISCV TAPSE 21 mm DEVANG ISCV LAV(MOD-bp) Indexed 17 mL/m2 DEVANG ISCV LAV(MOD-2ch) 29 mL DEVANG ISCV PA acc time 120 msec DEVANG ISCV mean PAP 25 mmHg DEVANG ISCV PA NC(ACCEL) 26.7 mmHg DEVANG ISCV PA acc slope 798.3 cm/s2 DEVANG ISCV RA MOD 4Ch 28 mL DEVANG ISCV VAIBHAV 15 mL/m2 DEVANG ISCV RV base 36 mm DEVANG ISCV RV Mid 29 mm DEVANG ISCV Anatomical Region Laterality Modality Echocardiography Narrative 01/26/2025 10:37 AM EDT The left ventricle is normal size. The left ventricular systolic function is normal. The LVEF is visually estimated at 55 - 60%. The diastolic function is normal. The left ventricular filling pressure is normal. The right ventricle is normal in size. The right ventricular systolic function is normal. No pericardial effusion. All cardiac valves were reasonably well interrogated with 2D imaging and/or Doppler assessment and no significant valve regurgitation or stenosis is seen. There is no recent study available for direct [id number] comparison. Left Ventricle The left ventricle is normal size. There is normal left ventricular myocardial thickness and mass. No left ventricular mass or thrombus is seen. The left ventricular systolic function is normal. The LVEF is visually estimated at 55 - 60%. The diastolic function is normal. The left ventricular filling pressure is normal. No regional wall motion abnormalities are seen. Right Ventricle The right ventricle is normal in size. The right ventricular systolic function is normal. The spectral Doppler envelope of TR is not adequate for calculating the right ventricular systolic pressure (RVSP). Based upon other 2D and Doppler features, the RVSP is probably normal or at most mildly elevated. Left Atrium The left atrial size is normal with an indexed volume of 16-34 mL/m2. The interatrial septum is intact with no evidence for an atrial septal defect. Right Atrium The right atrial volume index is normal (18-32mL/m2). IVC/SVC Based on the IVC size and respiratory variation, the estimated right atrial pressure is 3mmHg. Mitral Valve The mitral valve is grossly normal. There is trace mitral regurgitation. There is no mitral stenosis. Tricuspid Valve The leaflets appear thickened. There is trace tricuspid regurgitation. There is no tricuspid stenosis. Aortic Valve The aortic valve is probably trileaflet. There is no valvular regurgitation. There is no hemodynamically significant valvular aortic stenosis. Pulmonic Valve The pulmonic valve is normal in appearance. There is trace pulmonic regurgitation. There is no pulmonic stenosis. Pericardium No pericardial effusion. Great Vessels The aortic root is normal in size. In the maximally visualized portion, the ascending aorta appears normal in size. The main pulmonary artery is normal in size. Extracardiac There is no pleural effusion. Study Details A complete transthoracic echocardiogram using two-dimensional (2D), m-mode, color and spectral flow Doppler imaging was performed. The study was technically difficult. Height: 182.9 cm. Weight: 67.6 kg. BSA: 1.88 m2. Study Recommendation All cardiac valves were reasonably well interrogated with 2D imaging and/or Doppler assessment and no significant valve regurgitation or stenosis is seen. There is no recent study available for direct [id number] comparison. us Juan Mast MD CV ECHO PROCEDURES Final Res ult * Type and Screen (01/26/2025 12:56 AM EDT) ABO/Rh A Positive 01/25/2025 11:28 PM EDT BLOOD BANK Antibody Screen Negative 01/25/2025 11:28 PM EDT BLOOD BANK Specimen Expiration 01/29/2025 23:59 01/25/2025 11:28 PM EDT BLOOD BANK Blood Venous blood specimen / Unknown Venipuncture / Unknown 01/26/2025 12:56 AM EDT 01/26/2025 1:07 AM EDT us Juan Mast MD LAB BLOOD BANK TEST ORDERABL ES Final Result BLOOD BANK [address] [place] [address], * ECG Adult (01/25/2025 11:52 PM EDT) Pathologist [facility] EKG DIAGNOSIS CLASS Borderline Normal MUSE ECG Ventricular Rate 67 BPM MUSE ECG Atrial Rate 67 BPM MUSE ECG NC Interval 148 ms MUSE ECG QRSD Interval 90 ms MUSE ECG QT Interval 408 ms MUSE ECG QTC Interval 431 ms MUSE ECG P Jewett 81 degrees MUSE ECG R Jewett 72 degrees MUSE ECG T Wave Jewett 61 degrees MUSE ECG Diagnosis Sinus rhythm with marked sinus arrhythmia MUSE ECG Diagnosis MUSE ECG Diagnosis MUSE ECG Diagnosis Confirmed by Sara Munguia ([id number]) on 01/27/2025 6:38:54 AM MUSE ECG 01/25/2025 11:5 2 PM EDT 01/27/2025 6:38 AM EDT Juan Mast MD ECG ORDERABLES Final Result MUSE ECG * (ABNORMAL) Hepatitis C Virus (HCV) Quantitative PCR - ED (01/25/2025 11:49 PM EDT) [facility] Hepatitis C Virus (HCV) Quantitative Interpretation Detected( A) Not Detected. 01/26/2025 10:59 AM EDT [facility] Hepatitis C Virus (HCV) Quantitative Viral Load Log Result 5.58 <1.08 log10 IU/mL 01/26/2025 10:59 AM EDT [facility] Hepatitis C Virus (HCV) Quantitative IU/mL Result 379,781 <12 IU/mL 01/26/2025 10:59 AM EDT [facility] Blood Venous blood specimen / Unknown Venipuncture / Unknown 01/25/2025 11:49 PM EDT 01/25/2025 11:56 PM EDT Narrative [facility] - 01/26/2025 10:59 AM EDT The Link M2000 HCV test is a Real Time in vitro nucleic acid amplification test for the quantitation of Hepatitis C Viral (HCV) RNA in human serum in HCV-infected individuals. It is intended for use as an aid in the management of HCV-infected individuals undergoing anti-viral therapy. The dynamic range for this test is log10 = 1.08 to 8.00 and/or 12 to 100,000,000 IU/mL. The limit of detection (LOD) for this assay is 12 IU/mL and the limit of quantitation (LOQ) is 12 IU/mL. This assay is FDA approved for clinical use. us Juan Mast MD LAB BLOOD ORDERABLES Final R esult Performing Organization Address [facility] Co de Phone Number [facility] [address] [place] [address] * ED HIV 1/2 Antibody/Antigen Screen w/Reflex to HIV 1/2 Differentiation (01/25/2025 11:49 PM EDT) HIV 1 & 2 Antibody/Antigen Screen Non Reactive Non Reactive 01/26/2025 12:37 AM EDT [facility] Comment:Screening for HIV 1 & 2 antibodies, and P24 antigen is NONREACTIVE. No confirmatory testing is required. Blood Venous blood specimen / Unknown Venipuncture / Unknown 01/25/2025 11:49 PM EDT 01/25/2025 11:56 PM EDT us Juan Mast MD LAB BLOOD ORDERABLES Final R esult Performing Organization Address [facility] de Phone Number [facility] [address] [place] [address] * Hemoglobin A1c (01/25/2025 11:49 PM EDT) Hemoglobin A1c 5.0 <5.7 % 01/26/2025 9:21 AM EDT [facility] Blood Venous blood specimen / Unknown Venipuncture / Unknown 01/25/2025 11:49 PM EDT 01/25/2025 11:57 PM EDT Narrative [facility] - 01/26/2025 9:21 AM EDT HA1C Interpretive Data: Diagnosis of Diabetes: Diabetic > or = 6.5% Pre-diabetic 5.7 to 6.4% Non-diabetic < or = 5.6% Glycemic Targets for Type I and Type II Diabetics: Non- Adults <7.0% Adults <6.0% Children and Adolescents <7.5% Source: [place] [employer]. Standards of medical care in diabetes,2017. Diabetes Care.2017:40 (suppl 1):S1-S135. us Juan Mast MD LAB BLOOD ORDERABLES Final R esult Performing Organization Address City/[facility]/ZIP Co de Phone Number [facility] [address] [place] [address] * (ABNORMAL) Hepatitis C Antibody - ED (01/25/2025 11:49 PM EDT) Hepatitis C Antibody Positive(A ) Negative 01/26/2025 12:52 AM EDT [facility] Blood Venous blood specimen / Unknown Venipuncture / Unknown 01/25/2025 11:49 PM EDT 01/25/2025 11:56 PM EDT us Juan Mast MD LAB BLOOD ORDERABLES Final R esult Performing Organization Address City/[facility]/ZIP Co de Phone Number [facility] [address] [place] [address] * (ABNORMAL) Prothrombin Time/INR (01/25/2025 11:49 PM EDT) Prothrombin Time 14.6(H) 12.0 - 14.3 sec 01/26/2025 12:07 AM EDT [facility] INR 1.2(H) 0.9 - 1.1 01/26/2025 12:07 AM EDT [facility] Blood Venous blood specimen / Unknown Venipuncture / Unknown 01/25/2025 11:49 PM EDT 01/25/2025 11:52 PM EDT Narrative [facility] - 01/26/2025 12:07 AM EDT OPTIMAL INR RANGES FOR PATIENT ON ORAL ANTICOAGULANT THERAPY Prevention of venous thromboembolism INR 2.0 to 3.0 In patients with heart disease: Atrial fibrillation INR 2.0 to 3.0 Valvular heart disease INR 2.0 to 3.0 Tissue heart valves INR 2.0 to 3.0 Mechanical prosthetic valves INR 2.5 to 3.5 Prevention of recurrent NM INR 2.5 to 3.5 us Juan Mast MD LAB BLOOD ORDERABLES Final R esult [facility] [address] [place] [address] * (ABNORMAL) CBC W/O Differential (01/25/2025 11:49 PM EDT) WBC Count 14.16(H) 3.70 - 10.30 10*3/uL LAB HEMATOLOGY METHOD 01/25/2025 11:54 PM EDT [facility] RBC Count 4.20(L) 4.60 - 6.10 10*6/uL LAB HEMATOLOGY METHOD 01/25/2025 11:54 PM EDT [facility] HGB 14.1 13.7 - 17.5 g/dL LAB HEMATOLOGY METHOD 01/25/2025 11:54 PM EDT [facility] HCT 40.8 40.0 - 51.0 % LAB HEMATOLOGY METHOD 01/25/2025 11:54 PM EDT [facility] Platelet Count 209 155 - 369 10*3/uL LAB HEMATOLOGY METHOD 01/25/2025 11:54 PM EDT [facility] MCV 97 79 - 98 fL LAB HEMATOLOGY METHOD 01/25/2025 11:54 PM EDT [facility] MCH 33.6(H) 26.0 - 32.0 pg LAB HEMATOLOGY METHOD 01/25/2025 11:54 PM EDT [facility] MCHC 34.6 30.7 - 35.5 g/dL LAB HEMATOLOGY METHOD 01/25/2025 11:54 PM EDT [facility] RDW 12.8 11.5 - 14.5 % LAB HEMATOLOGY METHOD 01/25/2025 11:54 PM EDT [facility] MPV 9.5 8.8 - 12.5 fL LAB HEMATOLOGY METHOD 01/25/2025 11:54 PM EDT [facility] nRBC 0.0 <=0.0 per 100 WBCs LAB HEMATOLOGY METHOD 01/25/2025 11:54 PM EDT [facility] Blood Venous blood specimen / Unknown Venipuncture / Unknown 01/25/2025 11:49 PM EDT 01/25/2025 11:52 PM EDT us Juan Mast MD LAB BLOOD ORDERABLES Final R esult [facility] [address] [place] [address] * (ABNORMAL) Basic Metabolic Panel, Plasma (01/25/2025 11:49 PM EDT) Glucose, Plasma 155(H) 74 - 99 mg/dL 01/26/2025 12:29 AM EDT [facility] BUN, Plasma 9 7 - 21 mg/dL 01/26/2025 12:29 AM EDT [facility] Creatinine, Plasma 0.65(L) 0.70 - 1.20 mg/dL 01/26/2025 12:29 AM EDT [facility] BUN/Creatinine Ratio 14 01/26/2025 12:29 AM EDT [facility] Sodium, Plasma 140 136 - 145 mmol/L 01/26/2025 12:29 AM EDT [facility] Potassium, Plasma 3.8 3.6 - 4.9 mmol/L 01/26/2025 12:29 AM EDT [facility] Chloride, Plasma 105 97 - 107 mmol/L 01/26/2025 12:29 AM EDT [facility] CO2, Plasma 24 22 - 29 mmol/L 01/26/2025 12:29 AM EDT [facility] Anion Gap 11 6 - 16 mmol/L 01/26/2025 12:29 AM EDT [facility] Total Calcium, Plasma 8.7(L) 8.9 - 10.2 mg/dL 01/26/2025 12:29 AM EDT [facility] eGFRcr 129.2 mL/min/1.7 3m*2 01/26/2025 12:29 AM EDT [facility] Comment:Reported eGFRcr in m L/min/1.73m2 is based the CKD-EPI 2020 equation that does not use a race coefficient. Blood Venous blood specimen / Unknown Venipuncture / Unknown 01/25/2025 11:49 PM EDT 01/25/2025 11:57 PM EDT us Juan Mast MD LAB BLOOD ORDERABLES Final R esult [facility] [address] [place] [address] * XR Chest 1 View (01/25/2025 11:47 PM EDT) Anatomical Region Laterality Modality Chest Digital Radiogra phy Impressions 01/26/2025 12:18 AM EDT No acute findings. CRITICAL RESULT: No. COMMUNICATION: Per this written report. Drafted by Kinga Sandoval MD on 01/26/2025 12:18 AM Final report signed by Kinga Sandoval MD on 01/26/2025 12:18 AM Narrative 01/26/2025 12:18 AM EDT CLINICAL INDICATION: pre-op TECHNIQUE: XR CHEST 1 VIEW COMPARISON: None. FINDINGS: Lungs are clear. No consolidation. No pleural effusion. No pneumothorax. Cardiac silhouette is within normal limits. Procedure Note Kinga Sandoval MD - 01/26/2025 CLINICAL INDICATION: pre-op TECHNIQUE: XR CHEST 1 VIEW COMPARISON: None. FINDINGS: Lungs are clear. No consolidation. No pleural effusion. No pneumothorax.Cardiac silhouette is within normal limits. IMPRESSION: No acute findings. CRITICAL RESULT: No. COMMUNICATION: Per this written report. Drafted by Kinga Sandoval MD on 01/26/2025 12:18 AM Final report signed by Kinga Sandoval MD on 01/26/2025 12:18 AM us Juan Mast MD IMG XR PROCEDURES Final Resu lt documented in this encounter Visit Diagnoses Diagnosis Finger laceration, initial encounter- Primary Finger laceration, initial encounter Flexor tendon laceration of finger with open wound documented in this encounter Admitting Diagnoses Diagnosis Finger laceration, initial encounter Flexor tendon laceration of finger with open wound documented in this encounter Administered Medications Inactive Administered Medications - up to 3 most recent administrations Medication Order MAR Action Action Date Dose Rate Site acetaminophen (Tylenol) tablet 1,000 mg 1,000 mg, Oral, Once, 1 dose, On Tue01/25/25 at 2130, STAT Given 01/25/2025 9:47 PM EDT 1,000 mg acetaminophen (Tylenol) tablet 1,000 mg 1,000 mg, Oral, Every 6 hours, First dose on 01/26/25 at 0400, Until Discontinued, Routine Given 01/26/2025 4:30 AM EDT 1,000 mg bisacodyl (Dulcolax) suppository 10 mg 10 mg, Rectal, Daily PRN, Starting on Tue01/25/25 at 2328, Until 01/26/25 at 1909, Routine, constipation, if no bowel movement for 72 hours and no response to magnesium hydroxide ceFAZolin (Ancef) injection 2 g 2 g, Intravenous, Once, 1 dose, On Tue01/25/25 at 2200, STAT Given 01/25/2025 10:21 PM EDT 2 g fentaNYL (Sublimaze) injection 25 mcg 25 mcg, Intravenous, Every 5 min PRN, 2 doses, Starting on 01/26/25 at 1400, Until 01/26/25 at 1909, Routine, Recovery (Phase I only), pain score of 3-4 out of 10 HYDROmorphone (Dilaudid) injection 0.5 mg 0.5 mg, Intravenous, Every 10 min PRN, 2 doses, Starting on 01/26/25 at 1400, Until 01/26/25 at 1909, Routine, Recovery (Phase I only), pain score of 9-10 out of 10 ibuprofen tablet 400 mg 400 mg, Oral, Every 4 hours PRN, Starting on Tue01/25/25 at 2329, Until Tue01/26/25 at 1909, Routine, mild pain Given 01/26/2025 12:25 AM EDT 400 mg magnesium hydroxide (Milk of Magnesia) 400 MG/5ML suspension 30 mL 30 mL, Oral, Daily PRN, Starting on Tue01/25/25 at 2328, Until 01/26/25 at 1909, Routine, constipation, if no bowel movement for 48 hours ondansetron (Zofran) injection 4 mg 4 mg, Intravenous, Once as needed, 1 dose, Starting on 01/26/25 at 1359, Until 01/26/25 at 1909, Routine, Recovery (Phase I only), nausea, vomiting oxyCODONE (Roxicodone) immediate release tablet 10 mg 10 mg, Oral, Once as needed, 2 doses, Starting on 01/26/25 at 1400, Until 01/26/25 at 1909, Routine, Recovery (Phase I only), pain score of 6-8 out of 10 Given 01/26/2025 3:20 PM EDT 10 mg oxyCODONE (Roxicodone) immediate release tablet 5 mg 5 mg, Oral, Once as needed, 2 doses, Starting on 01/26/25 at 1400, Until 01/26/25 at 1909, Routine, Recovery (Phase I only), pain score of 3-5 out of 10 polyethylene glycol (Miralax) packet 17 g 17 g, Oral, Daily, First dose on 01/26/25 at 0900, Until Discontinued, Routine Povidone-Iodine 5 % swab solution 1 Application Nasal, Once, 1 dose, On Tue01/26/25 at 1145, Routine Given 01/26/2025 10:59 AM EDT 1 Application senna-docusate (Hetal-Colace) 8.6-50 MG per tablet 1 tablet 1 tablet, Oral, 2 times daily, First dose on Tue01/25/25 at 2335, Until Discontinued, Routine sodium chloride 0.9 % flush 10 mL 10 mL, Intravenous, Every 12 hours, First dose on Tue01/25/25 at 2335, Until Discontinued, Routine sodium chloride 0.9 % flush 10 mL 10 mL, Intravenous, As needed, Starting on Tue01/25/25 at 2328, Until 01/26/25 at 1909, Routine, line care sodium chloride 0.9 % flush 10 mL 10 mL, Intravenous, Every 12 hours, First dose on Tue01/26/25 at 1145, Until Discontinued, Routine, Holding - Preprocedure Given 01/26/2025 10:59 AM EDT 10 mL sodium chloride 0.9 % flush 10 mL 10 mL, Intravenous, As needed, Starting on Tue01/26/25 at 1051, Until 01/26/25 at 1909, Routine, Holding - Preprocedure, line care documented in this encounter Active and Recently Administered Medications Times are shown in EDT. Scheduled Medication Order 01/24/2025 01/25/2025 01/26/2025 acetaminophen (Tylenol) tablet 1,000 mg (COMPLETED) 1,000 mg, Oral, Once, 1 dose, On Tue01/25/25 at 2130, STAT 2147 (Given - Provider: Cammy Paige) acetaminophen (Tylenol) tablet 1,000 mg 1,000 mg, Oral, Every 6 hours, First dose on Tue01/26/25 at 0400, Until Discontinued, Routine 0430 (Given - Provid er: Dominique Willis, LIEN)1021 (Not Given - Provider: Beverly Love - Reason: Patient/family refused)1026 (MAR Hold - Provider: Automatic Transfer Provider - Reason: Patient in procedure)1600 (Dose Auto Held - Provider: Automatic Transfer Provider)1909 ([facility] Unhold - Provider: Automatic Discharge Provider) ceFAZolin (Ancef) injection 2 g (COMPLETED) 2 g, Intravenous, Once, 1 dose, On Tue01/25/25 at 2200, STAT 2221 (Given - Provider: Cammy Paige) polyethylene glycol (Miralax) packet 17 g 17 g, Oral, Daily, First dose on Tue01/26/25 at 0900, Until Discontinued, Routine 1020 (Not Given - Provider: Beverly Loev - Reason: Patient/family refused)1026 ([facility] Hold - Provider: Automatic Transfer Provider - Reason: Patient in procedure)190 ([facility] Unhold - Provider: Automatic Discharge Provider) Povidone-Iodine 5 % swab solution 1 Application (COMPLETED) Nasal, Once, 1 dose, On Tue01/26/25 at 1145, Routine 1059 (Given - Provid er: Beryl Solares RN) senna-docusate (Hetal-Colace) 8.6-50 MG per tablet 1 tablet 1 tablet, Oral, 2 times daily, First dose on Tue01/25/25 at 2335, Until Discontinued, Routine 0020 (Canceled Entry - Provider: Dominique Willis, RN - Comment: handoff)1020 (Not Given - Provider: Beverly Love - Reason: Patient/family refused)1026 (MAR Hold - Provider: Automatic Transfer Provider - Reason: Patient in procedure)190 ([facility] Unhold - Provider: Automatic Discharge Provider) sodium chloride 0.9 % flush 10 mL(Linked Group 1) 10 mL, Intravenous, Every 12 hours, First dose on Tue01/25/25 at 2335, Until Discontinued, Routine 0020 (Canceled Entry - Provider: Dominique Willis RN)1026 ([facility]P Hold - Provider: Automatic Transfer Provider - Reason: Patient in procedure)1135 (Dose Auto Held - Provider: Automatic Transfer Provider)1908 ([facility] Unhold - Provider: Automatic Discharge Provider) sodium chloride 0.9 % flush 10 mL(Linked Group 2) 10 mL, Intravenous, Every 12 hours, First dose on 01/26/25 at 1145, Until Discontinued, Routine, Holding - Preprocedure 1059 (Given - Provid er: Beryl Solares RN) PRN Medication Order 01/24/2025 01/25/2025 01/26/2025 bisacodyl (Dulcolax) suppository 10 mg 10 mg, Rectal, Daily PRN, Starting on Tue01/25/25 at 2328, Until 01/26/25 at 1909, Routine, constipation, if no bowel movement for 72 hours and no response to magnesium hydroxide 1026 (SEP Hold - Pro vider: Automatic Transfer Provider - Reason: Patient in procedure)1908 ([facility] Unhold - Provider: Automatic Discharge Provider) bupivacaine PF (Marcaine) 0.25 % injection (CANCELED) As needed, Starting on 01/26/25 at 1300, Until 01/26/25 at 1352, Routine, Intraprocedure 1300 (Given - Provid er: Zoila Alonso MD - Comment: on field) fentaNYL (Sublimaze) injection 25 mcg 25 mcg, Intravenous, Every 5 min PRN, 2 doses, Starting on 01/26/25 at 1400, Until 01/26/25 at 1909, Routine, Recovery (Phase I only), pain score of 3-4 out of 10 HYDROmorphone (Dilaudid) injection 0.5 mg 0.5 mg, Intravenous, Every 10 min PRN, 2 doses, Starting on 01/26/25 at 1400, Until 01/26/25 at 1909, Routine, Recovery (Phase I only), pain score of 9-10 out of 10 ibuprofen tablet 400 mg 400 mg, Oral, Every 4 hours PRN, Starting on 01/25/25 at 2329, Until 01/26/25 at 1909, Routine, mild pain 0025 (Given - Provid er: Dominique Willis RN)1026 (MAR Hold - Provider: Automatic Transfer Provider - Reason: Patient in procedure)1908 ([facility] Unhold - Provider: Automatic Discharge Provider) lidocaine (Xylocaine) 1 % injection (CANCELED) As needed, Starting on 01/26/25 at 1300, Until 01/26/25 at 1352, Routine, Intraprocedure 1300 (Given - Provid er: Zoila Alonso MD - Comment: on field) magnesium hydroxide (Milk of Magnesia) 400 MG/5ML suspension 30 mL 30 mL, Oral, Daily PRN, Starting on Tue01/25/25 at 2328, Until 01/26/25 at 1909, Routine, constipation, if no bowel movement for 48 hours 102 (SEP Hold - Pro vider: Automatic Transfer Provider - Reason: Patient in procedure)1908 ([facility] Unhold - Provider: Automatic Discharge Provider) ondansetron (Zofran) injection 4 mg 4 mg, Intravenous, Once as needed, 1 dose, Starting on 01/26/25 at 1359, Until 01/26/25 at 190, Routine, Recovery (Phase I only), nausea, vomiting oxyCODONE (Roxicodone) immediate release tablet 10 mg(Linked Group 3) 10 mg, Oral, Once as needed, 2 doses, Starting on 01/26/25 at 1400, Until 01/26/25 at 1909, Routine, Recovery (Phase I only), pain score of 6-8 out of 10 1520 (Given - Provid er: Perri Donohue RN) oxyCODONE (Roxicodone) immediate release tablet 5 mg(Linked Group 3) 5 mg, Oral, Once as needed, 2 doses, Starting on 01/26/25 at 1400, Until 01/26/25 at 1909, Routine, Recovery (Phase I only), pain score of 3-5 out of 10 1520 (See Alternativ e - Provider: Perri Donohue RN) sodium chloride 0.9 % flush 10 mL(Linked Group 1) 10 mL, Intravenous, As needed, Starting on Tue01/25/25 at 2328, Until 01/26/25 at 190, Routine, line care 1026 ([facility] Hold - Pro vider: Automatic Transfer Provider - Reason: Patient in procedure)1908 ([facility] Unhold - Provider: Automatic Discharge Provider) sodium chloride 0.9 % flush 10 mL(Linked Group 2) 10 mL, Intravenous, As needed, Starting on 01/26/25 at 1051, Until 01/26/25 at 1909, Routine, Holding - Preprocedure, line care Linked Groups Order Group 1: Insert peripheral IV (COMPLETED) Once, On Tue01/25/25 at 2329, For 1 occurrence And Saline lock IV (COMPLETED) Once, On Tue01/25/25 at 2329, For 1 occurrence And sodium chloride 0.9 % flush 10 mLJump to med 10 mL, Intravenous, Every 12 hours, First dose on Tue01/25/25 at 2335, Until Discontinued, Routine And sodium chloride 0.9 % flush 10 mLJump to med 10 mL, Intravenous, As needed, Starting on Tue01/25/25 at 2328, Until 01/26/25 at 1909, Routine, line care Group 2: Insert peripheral IV (CANCELED) Once, On 01/26/25 at 1052, For 1 occurrence, Holding - Preprocedure And Saline lock IV (CANCELED) Once, On 01/26/25 at 1052, For 1 occurrence, Holding - Preprocedure And sodium chloride 0.9 % flush 10 mLJump to med 10 mL, Intravenous, Every 12 hours, First dose on 01/26/25 at 1145, Until Discontinued, Routine, Holding - Preprocedure And sodium chloride 0.9 % flush 10 mLJump to med 10 mL, Intravenous, As needed, Starting on 01/26/25 at 1051, Until 01/26/25 at 1909, Routine, Holding - Preprocedure, line care Group 3: oxyCODONE (Roxicodone) immediate release tablet 5 mgJump to med 5 mg, Oral, Once as needed, 2 doses, Starting on 01/26/25 at 1400, Until 01/26/25 at 1909, Routine, Recovery (Phase I only), pain score of 3-5 out of 10 Or oxyCODONE (Roxicodone) immediate release tablet 10 mgJump to med 10 mg, Oral, Once as needed, 2 doses, Starting on 01/26/25 at 1400, Until 01/26/25 at 1909, Routine, Recovery (Phase I only), pain score of 6-8 out of 10 documented in this encounter Care Teams [employer] Ticket Sales Relationship Specialty Start Date End Date Pcp, [place] [address] PCP - General Family Medicine 01/25/25 documented as of this encounter
--- OUTSIDE RECORDS SUMMARY | 2025-01-26 11:30 | XMS_ITS | Encounter Summary ---
Author Organization [facility] Address [address] [place] [address] Care Team Providers Care Hide Trimmer Name Role Phone Pcp, No Primary Care Provider Unavailabl e Reason for Visit * Reason Comments Laceration * Auth/Cert (Routine) Specialty Diagnoses / Procedures Referred By Peggy ojhnston Referred To Contact Diagnoses Finger laceration, initial encounter possible tendon laceration Juan Mast MD [address] [address] Phone: tel: fax: [facility] [address] [place] [address] Phone: tel: Referral ID Status Reason Start Date Expiration Date Visits Re quested Visits Authorized [id number] 1 1 Encounter Details Date Type Department Care Team (Late st Contact Info) Description 01/26/2025 11:30 AM EDT - 01/26/2025 2:30 PM EDT Surgery [facility] [address] [place] [id number] Juan Mast MD [address] [address] REPAIR, TENDON AND NERVE [[id number] (CPT )] Surgery Details Date/Time Status Location [...] PM EDT Operative Note Date: 01/26/25 Location: [facility] Name: Fran Ruvalcaba, : 1995, Diagnoses: [...] Attending Surgeon(s): * Juan Mast - Primary Supervisor Pastry(s): * Zoila Alonso MD - Resident - [...] Juan Antonio Madera MD PGY-2, Orthopaedic Surgery [facility] Orthopaedic Trauma Service Pager: [phone] Orthopaedic Recon/Spine/Foot and Ankle Service Pager: [phone] * H&P - Juan Mast MD - [...] outside hospital where he received Tdap in [facility] and was transferred here for further evaluation. Last Meal: 01/25 Past Medical History: Past Medical History[1] Family History: Reviewed and found to be non contributory to HPI/ml Family or Personal History of DVT/PE: denies MRSA history: denies Metal Allergies: denies Tobacco: Half pack a day Alcohol: reports Illicit substance use: denies Lives in [place], [place] Occupation/Employment: Disability Ambulation: Without assistive devices [...] Juan Antonio Madera MD PGY-2, Orthopaedic Surgery [facility] Orthopaedic Trauma Service Pager: [phone] Orthopaedic Recon/Spine/Foot and Ankle Service Pager: [phone] [1] History reviewed. No pertinent past medical [...] patient after transfer to Main ED from [facility]. I personally performed my own history, ROS, and physical. I agree with the above [facility] documentation, however full history, physical and other [...] as history provider. History provided by: Patient graduate engineer used: No Patient History Past Medical History[1] [...] baseline. Comments: Awake Psychiatric: Behavior: Behavior normal. [place] Coma Scale Score: 15 ED Course & [facility] Note Date/Time: 01/25/2025/7:48 PM Entered by Gus Peraza, acting as scribe for Dr. 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 Sent for hand specialist from OSH. GivenTdap [...] to 01/25/20252324 Date/Time Order Dose Route Action 01/25/20252146 EDT acetaminophen (Tylenol) tablet 1,000 mg 1,000 [...] Office Visit Matthew Hand [address] [place] [address] Roxanne Summers PA [address] [place] [address] Scheduled Referrals Name Type Priority Associated Diagnoses Orde r Schedule Hand Surgery Outpatient Referral Routine Finger laceration, initial encounter Expected: 02/09/2025 (Approximate), Expires: 07/30/2026 documented as of this encounter Procedures Procedure Name Priority Date/Time Associated Diagnosis Comments MN REPAIR EXTEN TENDON,DORSUM FINGR,EA 01/26/2025 11:52 AM [...] mean PAP 25 mmHg DEVANG ISCV PA MN(ACCEL) 26.7 mmHg DEVANG ISCV PA acc slope [...] is no recent study available for direct [id number]-lc-[id number] comparison. Left Ventricle The left ventricle is [...] is no recent study available for direct [id number] comparison. us Juan Mast MD CV ECHO [...] ORDERABL ES Final Result [facility]LO[facility] [address] [place] [address], * ECG Adult (01/25/2025 11:52 PM EDT) EKG DIAGNOSIS CLASS Borderline Normal MUSE ECG Ventricular Rate 67 BPM MUSE ECG Atrial Rate 67 BPM MUSE ECG MN Interval 148 ms MUSE ECG QRSD Interval 90 ms MUSE ECG QT Interval 408 ms MUSE ECG QTC Interval 431 ms MUSE ECG P [place] 81 degrees MUSE ECG R [place] 72 degrees MUSE ECG T Wave [place] 61 degrees MUSE ECG Diagnosis Sinus rhythm with marked sinus arrhythmia MUSE ECG Diagnosis MUSE ECG Diagnosis MUSE ECG Diagnosis Confirmed by Sara Munguia ([id number]) on 01/27/2025 6:38:54 AM MUSE ECG 01/25/2025 11:5 2 PM EDT 01/27/2025 6:38 AM EDT us Juan Mast MD ECG ORDERABLES Final Result Performing Organization Address City/[facility]/ZIP Co de Phone Number MUSE ECG * (ABNORMAL) Hepatitis C Virus (HCV) Quantitative PCR - ED (01/25/2025 11:49 PM EDT) Hepatitis C Virus (HCV) Quantitative Interpretation Detected( A) Not Detected. 01/26/2025 10:59 AM EDT [facility] Hepatitis C Virus (HCV) Quantitative Viral Load Log Result 5.58 <1.08 log10 IU/mL 01/26/2025 10:59 AM EDT [facility] Hepatitis C Virus (HCV) Quantitative IU/mL Result 379,781 <12 IU/mL 01/26/2025 10:59 AM EDT [facility] Blood Venous blood specimen / Unknown Venipuncture / Unknown 01/25/2025 11:49 PM EDT 01/25/2025 11:56 PM EDT Narrative [facility] - 01/26/2025 10:59 AM EDT [...] MD LAB BLOOD ORDERABLES Final R esult [facility] [address] [place] [address] * ED HIV 1/2 Antibody/Antigen Screen w/Reflex to HIV 1/2 Differentiation (01/25/2025 11:49 PM EDT) HIV 1 & 2 Antibody/Antigen Screen Non Reactive Non Reactive 01/26/2025 12:37 AM EDT [facility] Comment:Screening for HIV 1 & 2 antibodies, and P24 antigen is NONREACTIVE. No confirmatory testing is required. Blood Venous blood specimen / Unknown Venipuncture / Unknown 01/25/2025 11:49 PM EDT 01/25/2025 11:56 PM EDT us Juan Mast MD LAB BLOOD ORDERABLES Final R esult Performing Organization Address [facility] Co de Phone Number [facility] [address] [place] [address] * Hemoglobin A1c (01/25/2025 11:49 PM EDT) Hemoglobin A1c 5.0 <5.7 % 01/26/2025 9:21 AM EDT [facility] Blood Venous blood specimen / Unknown Venipuncture / Unknown 01/25/2025 11:49 PM EDT 01/25/2025 11:57 PM EDT Narrative [facility] - 01/26/2025 9:21 AM EDT HA1C Interpretive Data: Diagnosis of Diabetes: Diabetic > or = 6.5% Pre-diabetic 5.7 to 6.4% Non-diabetic < or = 5.6% Glycemic Targets for Type I and Type II Diabetics: Non- Adults <7.0% Adults <6.0% Children and Adolescents <7.5% Source: [employer]. Standards of medical care in diabetes,2017. Diabetes Care.2017:40 (suppl 1):S1-S135. us Juan Mast MD LAB BLOOD ORDERABLES Final R esult Performing Organization Address [facility] Co de Phone Number [facility] [address] [place] [address] * (ABNORMAL) Hepatitis C Antibody - ED (01/25/2025 11:49 PM EDT) Hepatitis C Antibody Positive(A ) Negative 01/26/2025 12:52 AM EDT [facility] Blood Venous blood specimen / Unknown Venipuncture / Unknown 01/25/2025 11:49 PM EDT 01/25/2025 11:56 PM EDT us Juan Mast MD LAB BLOOD ORDERABLES Final R esult Performing Organization Address [facility]/ZIP Co de Phone Number [facility] [address] [place] [address] * (ABNORMAL) Prothrombin Time/INR (01/25/2025 11:49 PM EDT) Pathologist [facility] Prothrombin Time 14.6(H) 12.0 - 14.3 sec 01/26/2025 12:07 AM EDT [facility] INR 1.2(H) 0.9 - 1.1 01/26/2025 12:07 AM EDT [facility] Blood Venous blood specimen / Unknown Venipuncture / Unknown 01/25/2025 11:49 PM EDT 01/25/2025 11:52 PM EDT Narrative [facility] - 01/26/2025 12:07 AM EDT OPTIMAL INR RANGES FOR PATIENT ON ORAL ANTICOAGULANT THERAPY Prevention of venous thromboembolism INR 2.0 to 3.0 In patients with heart disease: Atrial fibrillation INR 2.0 to 3.0 Valvular heart disease INR 2.0 to 3.0 Tissue heart valves INR 2.0 to 3.0 Mechanical prosthetic valves INR 2.5 to 3.5 Prevention of recurrent CO INR 2.5 to 3.5 us Juan Mast MD LAB BLOOD ORDERABLES Final R esult Performing Organization Address City/[facility]/ZIP Co de Phone Number [facility] [address] [place] [address] * (ABNORMAL) CBC W/O Differential (01/25/2025 11:49 PM EDT) WBC Count 14.16(H) 3.70 - 10.30 10*3/uL LAB HEMATOLOGY METHOD 01/25/2025 11:54 PM EDT [facility] RBC Count 4.20(L) 4.60 - 6.10 10*6/uL LAB HEMATOLOGY METHOD 01/25/2025 11:54 PM EDT [facility] HGB 14.1 13.7 - 17.5 g/dL LAB HEMATOLOGY METHOD 01/25/2025 11:54 PM EDT [facility] HCT 40.8 40.0 - 51.0 % LAB HEMATOLOGY METHOD 01/25/2025 11:54 PM EDT [facility] Platelet Count 209 155 - 369 10*3/uL LAB HEMATOLOGY METHOD 01/25/2025 11:54 PM EDT [facility] MCV 97 79 - 98 fL LAB HEMATOLOGY METHOD 01/25/2025 11:54 PM EDT [facility] MCH 33.6(H) 26.0 - 32.0 pg LAB HEMATOLOGY METHOD 01/25/2025 11:54 PM EDT [facility] MCHC 34.6 30.7 - 35.5 g/dL LAB HEMATOLOGY METHOD 01/25/2025 11:54 PM EDT [facility] RDW 12.8 11.5 - 14.5 % LAB HEMATOLOGY METHOD 01/25/2025 11:54 PM EDT [facility] MPV 9.5 8.8 - 12.5 fL LAB HEMATOLOGY METHOD 01/25/2025 11:54 PM EDT [facility] nRBC 0.0 <=0.0 per 100 WBCs LAB HEMATOLOGY METHOD 01/25/2025 11:54 PM EDT [facility] Blood Venous blood specimen / Unknown Venipuncture / Unknown 01/25/2025 11:49 PM EDT 01/25/2025 11:52 PM EDT Juan Mast MD LAB BLOOD ORDERABLES Final R esult [facility] [address] [place] [address] * (ABNORMAL) Basic Metabolic Panel, Plasma (01/25/2025 11:49 PM EDT) Glucose, Plasma 155(H) 74 - 99 mg/dL 01/26/2025 12:29 AM EDT [facility] BUN, Plasma 9 7 - 21 mg/dL 01/26/2025 12:29 AM EDT [facility] Creatinine, Plasma 0.65(L) 0.70 - 1.20 mg/dL 01/26/2025 12:29 AM EDT [facility] BUN/Creatinine Ratio 14 01/26/2025 12:29 AM EDT [facility] Sodium, Plasma 140 136 - 145 mmol/L 01/26/2025 12:29 AM EDT [facility] Potassium, Plasma 3.8 3.6 - 4.9 mmol/L 01/26/2025 12:29 AM EDT [facility] Chloride, Plasma 105 97 - 107 mmol/L 01/26/2025 12:29 AM EDT [facility] CO2, Plasma 24 22 - 29 mmol/L 01/26/2025 12:29 AM EDT [facility] Anion Gap 11 6 - 16 mmol/L 01/26/2025 12:29 AM EDT [facility] Total Calcium, Plasma 8.7(L) 8.9 - 10.2 mg/dL 01/26/2025 12:29 AM EDT [facility] eGFRcr 129.2 mL/min/1.7 3m*2 01/26/2025 12:29 AM EDT [facility] Comment:Reported eGFRcr in m L/min/1.73m2 is based the CKD-EPI 2020 equation that does not use a race coefficient. Blood Venous blood specimen / Unknown Venipuncture / Unknown 01/25/2025 11:49 PM EDT 01/25/2025 11:57 PM EDT us Juan Mast MD LAB BLOOD ORDERABLES Final R esult [facility] [address] [place] [address] * XR Chest 1 View (01/25/2025 11:47 [...] Auto Held - Provider: Automatic Transfer Provider)190 ([facility] Unhold - Provider: Automatic Discharge Provider) sodium [...] Transfer Provider - Reason: Patient in procedure)190 ([facility] Unhold - Provider: Automatic Discharge Provider) bupivacaine [...] (Given - Provid er: Dominique Willis RN)1026 ([facility] Hold - Provider: Automatic Transfer Provider - Reason: Patient in procedure)1908 ([facility] Unhold - Provider: Automatic Discharge Provider) lidocaine [...] no bowel movement for 48 hours 1026 ([facility] Hold - Pro vider: Automatic Transfer Provider - Reason: Patient in procedure)1908 ([facility] Unhold - Provider: Automatic Discharge Provider) ondansetron [...] Transfer Provider - Reason: Patient in procedure)1909 ([facility] Unhold - Provider: Automatic Discharge Provider) sodium chloride 0.9 % flush 10 mL(Linked Group 2) 10 mL, Intravenous, As needed, Starting on 01/26/25 at 1051, Until 01/26/25 at 1909, Routine, Holding - Preprocedure, line care Linked Groups Order Group 1: Insert peripheral IV (COMPLETED) Once, On Tue01/25/25 at 2329, For 1 occurrence And Saline lock IV (COMPLETED) Once, On Tue01/25/25 at 232, For 1 occurrence And sodium chloride 0.9 [...] 10 documented in this encounter Care Teams Hide Trimmer Relationship Specialty Start Date End Date Pcp, [place] [address] PCP - General Family Medicine 01/25/25 documented as of this encounter
--- OUTSIDE RECORDS SUMMARY | 2025-01-26 12:06 | XMS_ITS | Encounter Summary ---
Author Organization [facility] Address [address] [place] [address] Care Team Providers Care Travel Manager Name Role Phone Pcp, No Primary Care Provider Unavailabl e Reason for Visit * Auth/Cert (Routine) Specialty Diagnoses / Procedures Referred By Peggy johnston Referred To Contact Diagnoses Finger laceration, initial encounter possible tendon laceration Juan Mast MD [address] [facility] [address] [place] [address] Phone: tel: fax: [facility] [address] [place] [address] Phone: tel: Referral ID Status Reason Start Date Expiration Date Visits Re quested Visits Authorized [id number] 1 1 Encounter Details Date Type Department Care Team (Late st Contact Info) Description 01/26/2025 12:06 PM EDT Anesthesia Event [facility] [address] [place] [phone] Tunde Singh MD [address] [place] [address] Anesthesia Record Procedure Summary Procedure Name Responsible Anesthesiologist Anesthesia Start Time Anesthesia Stop Time REPAIR, TENDON AND NERVE (Right: Hand) Tunde Singh MD 01/26/25 1206 01/26/25 1400 Events Date Time Event Comment 01/26/2025 1056 1206 An Start The patient was reevaluated immediately before sedation and remains eligible for anesthesia plan. 1206 An Start Data 1207 In Room 1209 An Induction The patient was reevaluated immediately before moderate or deep sedation use and before anesthesia induction. 1211 An Intubation 1214 Anesthesia Ready 1223 Proc Start 1347 Proc Fin 1349 An Extubation 1351 an stop data 1352 Out of Room 1400 Handoff to Receiving I compl eted my handoff to the receiving clinician during which we: 1. Identified the patient 2. Identified the responsible provider 3. Reviewed the pertinent medical history 4. Discussed the surgical course 5. Reviewed intra-op anesthesia management and issues during anesthesia 6. Set expectations for post-procedure period 7. Allowed opportunity for questions and acknowledgement of understanding. 1400 An Stop Meds Name Total propofol (Diprivan) injection 10 mg/mL 2 00 mg fentaNYL (Sublimaze) injection 50 mcg/mL 100 mcg ondansetron (Zofran) injection 2 mg/mL 4 mg Lidocaine HCl 100 MG/5ML 3 mL ketorolac 30 MG/ML 30 mg midazolam 1 MG/ML 2 mg ceFAZolin (Ancef) vial 1 g 2 g dexmedetomidine (Precedex) infusion in N aCl 4 mcg/mL 16 mcg lactated Ringer's infusion 0 mL * Agents Name O2 Sevoflurane Inspired Sevoflurane * Blood No blood administrations on file. Lines, Drains, and Airways Type Details Placement Removal Wound 01/26/25; 0022; Y; Traumatic; Laceration; Finger (Comment which one); Posterior, Right; 4th and 5th digit 01/26/25 0022 by Dominique Willis RN Wound 01/26/25; 1255; N; Y es; Traumatic; Finger (Comment which one) (fourth and fifth); Anterior, Right 01/26/25 1255 by Park Tam, LIEN Peripheral IV Placement Date: 01/15 08/11; Placement Time: 2220; Catheter Size: 20 G; Orientation: Anterior, Left; Location: Forearm; Site Prep: Chlorhexidine ; Local Anesth: None; Technique: Anatomical landmarks; Inserted by: Camym EMMANUEL; Insertion Attempts: 1; Patient Tolerance: Tolerated well; Removal Date: 01/26/25; Removal Time: 1630; Removal Reason: Discharge 01/25/25 2220 by Cammy Paige 01/26/25 163 by Perri Donohue RN Supraglottic Airway Placement Date: 01/15 09/11; Placement Time: 1211 (created via procedure documentation); Mask Ventilation: 1; Removal Date: 01/26/25; Removal Time: 1349 01/26/25 1211 by Ida Garsia CRNA 01/26/25 1349 by Ida Garsia CRNA documented in this encounter Social History Tobacco Use Types Packs/Day Years Used Date Smoking Tobacco: Never Assessed Sex and Gender Information Value Date Recorded Sex Assigned at Not on file Legal Sex Male 1:52 PM EDT Gender Identity Not on file Sexual Orientation Not on file documented as of this encounter Functional Status * Question Answer Date of Assessment Author 2. Non-Specific Active Suici arnulfo Thoughts (Past 1 Month) No 01/26/2025 1:55 PM EDT Mann Donohue RN * Calculated C-SSRS Risk Score (Lifetime/Recent) Answer Date of Assessment Author No Risk Indicated 01/26/2025 1:55 PM EDT Perri Donohue RN documented as of this encounter Miscellaneous Notes * Anesthesia Postprocedure Evaluation - Ida Garsia CRNA - 01/26/2025 2:00 PM EDT Patient: Fran Ruvalcaba Anesthesia Type: general Vitals Value Taken Time BP 95/58 01/26/25 13:55 Temp 36.5 01/26/25 14:00 Pulse 62 01/26/25 13:59 Resp 13 01/26/25 13:59 SpO2 100 % 01/26/25 13:59 Vitals shown include unfiled device data. Anesthesia Post Evaluation Patient location during evaluation: PACU Patient participation: complete - patient participated Level of consciousness: awake Pain management: adequate (pain score 0-3) Airway patency: natural airway Cardiovascular status: acceptable and hemodynamically stable Respiratory status: acceptable, blow-by oxygen, nonlabored ventilation and spontaneous ventilation Hydration status: acceptable Nausea/Vomiting: No No notable events documented. * Anesthesia Procedure Notes - Ida Garsia CRNA - 01/26/2025 12:23 PM EDT Associated Order(s): Airway Airway Date/Time: 01/26/2025 12:11 PM Reason: elective Airway not difficult General Information and Staff Patient location during procedure: OR DESK OFFICER: Ida Garsia CRNA Performed: JUAN Patient Condition Indications for airway management: anesthesia Patient position: sniffing MILS maintained throughout Final Airway Details Final airway type: LMALMA Size: 4 LMA Type: normal * Anesthesia Preprocedure Evaluation - Tunde Singh MD - 01/26/2025 10:56 AM EDT Anesthesiologist: Tunde Singh MD DESK OFFICER: Ida Garsia CRNA Patient: Fran Ruvalcaba HPI Fran Ruvalcaba is a 30 y.o. male with body mass index is 20.34 kg/m??. who presents with Finger laceration, initial encounter, now for REPAIR, TENDON AND NERVE (Right) Procedure Information Date/Time: 01/26/25 1130 Procedure: REPAIR, TENDON AND NERVE (Right: Hand) - tendon tray, plastics hand set, micro set. 4-0 Fiberwire, lead hand, 60 min Location: [address] OR Surgeons: Juan Mast MD Relevant Problems Anesthesia (within normal limits) Cardio (within normal limits) Endo (within normal limits) GI (within normal limits) /Renal (within normal limits) Neuro/Psych (within normal limits) Pulmonary (within normal limits) Musculoskeletal (+) Flexor tendon laceration of finger with open wound ALLERGIES Allergies[1] NPO STATUS Date of Last Liquid: 01/26/25 Time of Last Liquid: 0000 Date of Last Solid: 01/26/25 Time of Last Solid: 0000 Time of Last Void: 0800 Past Medical History[2] AIRWAY HISTORY Airway Detailed Review Displaying the 20 most recent records No records found. MEDICATIONS Outpatient No current outpatient medications Scheduled Current Scheduled Medications[3] PRNs Current PRN Medications[4] SURGICAL HX: Surgical History[5] SOCIAL HX: Social History[6] OBJECTIVE DATA LABS Lab Results Component Value Date WBC 14.16 (H) 01/25/2025 HGB 14.1 01/25/2025 HCT 40.8 01/25/2025 MCV 97 01/25/2025 PLT 209 01/25/2025 Lab Results Component Value Date CALCIUM 8.7 (L) 01/25/2025 BUN 9 01/25/2025 CREATININE 0.65 (L) 01/25/2025 BCR 14 01/25/2025 NA 140 01/25/2025 K 3.8 01/25/2025 CL 105 01/25/2025 CO2 24 01/25/2025 Type and Screen ABO/Rh Date Value Ref Range Status 01/26/2025 A Positive Final Results from last 7 days Lab Units 01/25/25 2349 INR 1.2* Lab Results Component Value Date HGBA1C 5.0 01/25/2025 Lab Results Component Value Date GLUCOSE 155 (H) 01/25/2025 ABG No results found for: PHART , BIR9QIJ , PO2ART , SO2ART , BEART , QUI8CAG , HCTART , SODIUMART , POTASSIUMART , POCTCL , POCGLU , IONCALART , LACTATE No results found for: PH , PCO2 , PO2 , [id number] , BASEEXC , HCTSYR , KSYR , CLSYR , GLUSYR , CAION , LACTATE ECHO Echo, Adult Transthoracic Complete Result Date: 01/26/2025 The left ventricle is normal size. The [...] is no recent study available for direct nhel-kz-axvl comparison. PFTs No results found for: HWU9UTN , CVS7XUCF , OVT3QDD , FVCPRED BP Readings from Last 5 Encounters: 01/26/25 101/66 01/25/25 118/71 Physical Exam Airway Mallampati: II Mouth opening: normal TM distance: >3 FB Neck ROM: full Cardiovascular Rhythm: regular Rate: normal Dental (+) poor dentition Pulmonary Breath sounds clear to auscultation Neurological Oriented: normal to time, normal to place and normal to person and oriented to person, place and time Skin - normal exam Musculoskeletal - normal exam Extremities -normal exam Anesthesia Plan ASA 2 Plan was reviewed with: DESK OFFICER Anesthesia technique(s) discussed with the patient/family: general Anesthesia plan agreed upon was: general Anesthetic plan and risks discussed with patient. Use of blood products discussed with patient who consented to blood products. Anesthesia Evaluation [1] No Known Allergies [2] History reviewed. No pertinent past medical history. [3] [Transfer Hold] acetaminophen, 1,000 mg, Oral, q6h [Transfer Hold] polyethylene glycol, 17 g, Oral, Daily Povidone-Iodine, 1 Application, Nasal, Once [Transfer Hold] senna-docusate, 1 tablet, Oral, BID Insert peripheral IV, , , Once AND Saline lock IV, , , Once AND sodium chloride, 10 mL, Intravenous, q12h AND sodium chloride, 10 mL, Intravenous, PRN [COMPLETED] Insert peripheral IV, , , Once AND [COMPLETED] Saline lock IV, , , Once AND [Transfer Hold] sodium chloride, 10 mL, Intravenous, q12h AND [Transfer Hold] sodium chloride, 10 mL, Intravenous, PRN [4] PRN medications: [Transfer Hold] bisacodyl, [Transfer Hold] ibuprofen, [Transfer Hold] magnesium hydroxide, [COMPLETED] Insert peripheral IV AND [COMPLETED] Saline lock IV AND [Transfer Hold] sodium chloride AND [Transfer Hold] sodium chloride, Insert peripheral IV AND Saline lock IV AND sodium chloride AND sodium chloride [5] History reviewed. No pertinent surgical history. [6] documented in this encounter Plan of Treatment Upcoming Encounters Date Type Department Care Team (Late st Contact Info) Description 02/07/2025 3:10 PM EDT Office Visit Matthew Umanzor [address] [place] [address] Roxanne Summers PA [address] [phone] documented as of this encounter Procedures Procedure Name Priority Date/Time Associated Diagnosis Comments PB ANESTHESIA PLACEHOLDER Routine 01/26/2025 12:11 PM EDT [place] AN ELECTIVE SUPRAGLOTTIC AIRWAY Routine 01/26/2025 12:11 PM EDT documented in this encounter Results * [place] AN ELECTIVE SUPRAGLOTTIC AIRWAY, PB ANESTHESIA PLACEHOLDER (01/26/2025 12:11 PM EDT) Narrative Ida Garsia CRNA - 01/26/2025 12:11 PM EDT Ida Garsia CRNA 01/26/2025 12:23 PM Airway Date/Time: 01/26/2025 12:11 PM Reason: elective Airway not difficult General Information and Staff Patient location during procedure: OR DESK OFFICER: Ida Garsia CRNA Performed: JUAN Patient Condition Indications for airway management: anesthesia Patient position: sniffing MILS maintained throughout Final Airway Details Final airway type: LMALMA Size: 4 LMA Type: normal Tunde Singh MD ANESTHESIA ORDERABLES Final R esult documented in this encounter Visit Diagnoses Not on filedocumented in this encounter Administered Medications Inactive Administered Medications - up to 3 most recent administrations Medication Order MAR Action Action Date Dose Rate Site ceFAZolin (Ancef) injection Intravenous, As needed, Starting on 01/26/25 at 1221, Until 01/26/25 at 1400, Routine, Anesthesia Intraprocedure Given 01/26/2025 12:21 PM EDT 2 g dexmedetomidine in NS (Precedex) 4 mcg/mL infusion Intravenous, As needed, Starting on 01/26/25 at 1224, Until 01/26/25 at 1400, Routine Given 01/26/2025 1:42 PM EDT 8 mcg Given 01/26/2025 12:24 PM EDT 8 mcg fentaNYL (Sublimaze) injection Intravenous, As needed, Starting on 01/26/25 at 1224, Until 01/26/25 at 1400, Routine, Anesthesia Intraprocedure Given 01/26/2025 12:24 PM EDT 10 0 mcg ketorolac (Toradol) injection Intravenous, As needed, Starting on 01/26/25 at 1322, Until 01/26/25 at 1400, Routine, Anesthesia Intraprocedure Given 01/26/2025 1:22 PM EDT 30 mg lactated Ringer's infusion Intravenous, Continuous PRN, Starting on 01/26/25 at 1209, Until 01/26/25 at 1400, Routine New Bag 01/26/2025 12:09 PM EDT Lidocaine HCl prefilled syringe Buccal, As needed, Starting on 01/26/25 at 1209, Anesthesia Intraprocedure Given 01/26/2025 12:09 PM EDT 3 mL midazolam (Versed) injection Intravenous, As needed, Starting on 01/26/25 at 1205, Until 01/26/25 at 1400, Routine, Anesthesia Intraprocedure Given 01/26/2025 12:05 PM EDT 2 mg ondansetron (Zofran) injection Intravenous, As needed, Starting on 01/26/25 at 1322, Until 01/26/25 at 1400, Routine, Anesthesia Intraprocedure Given 01/26/2025 1:22 PM EDT 4 m g propofol (Diprivan) injection Intravenous, As needed, Starting on 01/26/25 at 1209, Until 01/26/25 at 1400, Routine, Anesthesia Intraprocedure Given 01/26/2025 12:09 PM EDT 20 0 mg documented in this encounter Care Teams Travel Manager Relationship Specialty Start Date End Date Pcp, [place] [address] PCP - General Family Medicine 01/25/25 documented as of this encounter
--- OUTSIDE RECORDS SUMMARY | 2025-02-07 09:50 | XMS_ITS | Encounter Summary ---
Author Organization Healthcare Address [address] [place] [address] Care Team Providers Care Title Coordinator Name Role Phone Pcp, No Primary Care [...] EDT Office Visit Turadelaida Hand [address] [place] [address] Roxanne Summers PA [address] [address] documented as of this encounter Visit Diagnoses Not on filedocumented in this encounter Care Teams Title Coordinator Relationship Specialty Start Date End Date Pcp, No [address] [place] [address] PCP - General Family Medicine 01/25/25 documented as of this encounter
--- OUTSIDE RECORDS SUMMARY | 2025-02-07 09:50 | XMS_ITS | Encounter Summary ---
Author Organization [facility] Address [address] [place] [address] Care Team Providers Care Fundraising Coordinator Name Role Phone Pcp, No Primary Care Provider Unavailabl e Reason for Visit * Reason Onset Date Comments [facility] HCV W/U 01/29/2025 Encounter Details Date Type Department Care Team (Late st Contact Info) Description 01/29/2025 Telephone MD Clinic Medicine Specialties [address], [address] [place] [address] Zack Ohara APRN, DNP [address] [place] [address] [facility] HCV W/U Social History Tobacco Use Types [...] care closer to home d/t travel to [place] from [place]. * Telephone Encounter - Zack Ohara APRN, DNP - 01/29/2025 3:07 PM EDT TH attempt; no show to video and no answer to -[phone]; I sent message to return call to clinic. documented in this encounter Plan of Treatment Upcoming Encounters Date Type Department Care Team (Late st Contact Info) Description 02/07/2025 3:10 PM EDT Office Visit Matthew Umanzor [address] [place] [phone] Roxanne Summers PA [address] [address] documented as of this encounter Visit Diagnoses Not on filedocumented in this encounter Care Teams Fundraising Coordinator Relationship Specialty Start Date End Date Pcp, Marilee [address] [place] [address] PCP - General Family Medicine 01/25/25 documented as of this encounter
--- OUTSIDE RECORDS SUMMARY | 2025-02-07 09:50 | XMS_ITS | Encounter Summary ---
Author Organization Healthcare Address [address] [place] [address] Care Team Providers Care Field Service Technician Poultry Name Role Phone Pcp, No Primary Care Provider Unavailabl e Encounter Details Date Type Department Care Team (Late st Contact Info) Description 01/29/2025 Patient Outreach [facility] [address], [address] [place] [address] Rosa Hernandez Social History Tobacco [...] Office Visit Matthew Noé [address] [place] [address] Roxanne Summers PA [address] [place] [address] documented as of this encounter Visit Diagnoses Not on filedocumented in this encounter Care Teams Field Service Technician Poultry Relationship Specialty Start Date End Date Pcp, No [address] [place] [address] PCP - General Family Medicine 01/25/25 documented as of this encounter
--- OUTSIDE RECORDS SUMMARY | 2025-02-07 09:51 | XMS_ITS ---
Author Organization [facility] Address [address] [id number] Care Team Providers Care Cello Teacher Name Role Phone Pcp, No Primary Care Provider Unavailabl e Hepatitis C Program Status:Active (Active) Start date:01/25/2025 Enrollment date:01/25/2025 Continued Care and Services Coordination
--- OUTSIDE RECORDS SUMMARY | 2025-02-07 09:51 | XMS_ITS | Clinical Summary ---
Author Organization [facility] Address [address] [place] [address] Care Team Providers Care Float Phlebotomist Name Role Phone Pcp, No Primary Care Provider Unavailabl e Allergies No known active allergies Medications acetaminophen (Tylenol) 500 MG tablet Take 2 tablets by mouth every 6 hours. 100 tablet 1 5 Active ibuprofen 400 MG tablet Take 1 tablet by mouth every 4 hours as needed for mild pain. 100 tablet 1 5 Active oxyCODONE (Roxicodone) 5 MG immediate release tablet Take 1 tablet by mouth every 6 hours as needed for severe pain. 10 tablet 5 Active oxyCODONE (Roxicodone) 5 MG immediate release tablet Take 1 tablet by mouth every 6 hours as needed for severe pain. 15 tablet 5 01/31/20 25 Discontinue d(Reorder) sulfamethoxazol e-trimethoprim (Bactrim DS) 800-160 MG tabletIndicatio ns:Finger laceration, initial encounter Take 1 tablet by mouth 2 times a day for 7 days. 14 tablet 5 02/03/20 25 Active Problems Problem Noted Date Diagnosed Date Flexor tendon laceration of finger with open wou nd 01/26/2025 Finger laceration, initial encounter 01/25/2025 Encounters Date Type Department Care Team Description 02/05/2025 Patient Outreach [facility] Medicine Specialties [address] [place] [address] Rosa Hernandez 01/30/2025 Orders Only [facility] Orthopaedic Surgery & Sports Medicine [address], [address] [place] [address] Anant Francis MD 01/29/2025 Patient Outreach [facility] Medicine Specialties [address], [address] [place] [address] Rosa Hernandez 01/29/2025 Telephone [facility] Medicine Specialties [address], [address] [place] [address] Zack Ohara, WEBSITE OPTIMIZATION STRATEGIST, DNP [facility] HCV W/U 01/26/2025 12:06 PM EDT Anesthesia Event [facility] [address] [place] [phone] Tunde Singh MD 01/26/2025 11:30 AM EDT - 01/26/2025 2:30 PM EDT Surgery [facility] [address] [place] [phone] Juan Mast MD REPAIR, TENDON AND NERVE [[id number] (CPT )] 01/26/2025 Travel 01/25/2025 7:58 PM EDT - 01/26/2025 5:09 PM EDT Hospital Encounter [facility] [address] [place] [phone] Ole Guerrero MD Kluemper, Chase T, MD Finger laceration, initial encounter (Primary Dx) Discharge Disposition: Home or Self Care 01/25/2025 Travel 01/25/2025 Orders Only External Location [address] [place] [phone] Provider, External from Last 3 Months Social [...] Office Visit Matthew Umanzor [address] [place] [address] Roxanne Summers PA [address] [place] [address] Health Maintenance Due Date Last Done Comments [facility]-Depression Screening 1994 [facility]-Infant/Child/Adol SDOH Screenings 1994 [facility]-Varicella Vaccines (2 of 2 - 2-dose childhood series) 11/01/2006 08/09/2006 HPV Vaccines (1 - Male 3-dose series) 2009 [facility]- SDOH Screenings 01/05/2012 [facility]-Adult SDOH Screenings 01/05/2012 [facility]-Hepatitis B Vaccines (1 of 3 - 19+ 3-dose series) 2013 [id number] Vaccine (2 - 2023- season) 2024 02/05/2021 [facility]-Influenza Vaccine (#1) 2025 [...] ANESTHESIA PLACEHOLDER Routine 01/26/2025 12:11 PM EDT ID AN ELECTIVE SUPRAGLOTTIC AIRWAY Routine 01/26/2025 12:11 PM EDT ID REPAIR EXTEN TENDON,DORSUM FINGR,EA 01/26/2025 11:52 AM [...] EDT from Last 3 Months Results * ID AN ELECTIVE SUPRAGLOTTIC AIRWAY, PB ANESTHESIA PLACEHOLDER (01/26/2025 12:11 PM EDT) Narrative Ida Garsia CRNA - 01/26/2025 12:11 PM EDT Ida Garsia CRNA 01/26/2025 12:23 PM Airway Date/Time: 01/26/2025 12:11 PM Reason: elective Airway not difficult General Information and Staff Patient location during procedure: OR WOMEN'S SWIM COACH: Ida Garsia CRNA Performed: JUAN Patient Condition [...] mean PAP 25 mmHg DEVANG ISCV PA ID(ACCEL) 26.7 mmHg DEVANG ISCV PA acc slope [...] is no recent study available for direct [id number] comparison. Left Ventricle The left ventricle is [...] is no recent study available for direct [id number] comparison. us Juan Mast MD CV ECHO [...] ORDERABL ES Final Result BLOOD BANK [address] [place] [address], * ECG Adult (01/25/2025 11:52 PM EDT) EKG DIAGNOSIS CLASS Borderline Normal MUSE ECG Ventricular Rate 67 BPM MUSE ECG Atrial Rate 67 BPM MUSE ECG ID Interval 148 ms MUSE ECG QRSD Interval 90 ms MUSE ECG QT Interval 408 ms MUSE ECG QTC Interval 431 ms MUSE ECG P [place] 81 degrees MUSE ECG R [place] 72 degrees MUSE ECG T Wave [place] 61 degrees MUSE ECG Diagnosis Sinus rhythm [...] HIV 1/2 Differentiation (01/25/2025 11:49 PM EDT) Pathologist [facility] HIV 1 & 2 Antibody/Antigen Screen Non Reactive Non Reactive 01/26/2025 12:37 AM EDT [facility] Comment:Screening for HIV 1 & 2 antibodies, and P24 antigen is NONREACTIVE. No confirmatory testing is required. Blood Venous blood specimen / Unknown Venipuncture / Unknown 01/25/2025 11:49 PM EDT 01/25/2025 11:56 PM EDT Juan Mast MD LAB BLOOD ORDERABLES Final R esult [facility] [address] [facility] [place] [address] * (ABNORMAL) Hepatitis C Virus (HCV) Quantitative PCR - ED (01/25/2025 11:49 PM EDT) [facility] Hepatitis C Virus (HCV) Quantitative Interpretation Detected( A) Not Detected. 01/26/2025 10:59 AM EDT [facility] Hepatitis C Virus (HCV) Quantitative Viral Load Log Result 5.58 <1.08 log10 IU/mL 01/26/2025 10:59 AM EDT [facility] Hepatitis C Virus (HCV) Quantitative IU/mL Result 379,781 <12 IU/mL 01/26/2025 10:59 AM EDT [facility] Blood Venous blood specimen / Unknown Venipuncture / Unknown 01/25/2025 11:49 PM EDT 01/25/2025 11:56 PM EDT Narrative [facility] - 01/26/2025 10:59 AM EDT [employer] M2000 HCV test is a Real Time [...] ORDERABLES Final R esult Performing Organization Address City/[facility]/ZIP Co de Phone Number [facility] [address] [place] [address] * (ABNORMAL) Hepatitis C Antibody - ED (01/25/2025 11:49 PM EDT) Hepatitis C Antibody Positive(A ) Negative 01/26/2025 12:52 AM EDT [facility] Blood Venous blood specimen / Unknown Venipuncture / Unknown 01/25/2025 11:49 PM EDT 01/25/2025 11:56 PM EDT us Juan Mast MD LAB BLOOD ORDERABLES Final R esult Performing Organization Address City/[facility]/ZIP Co de Phone Number [facility] [address] [place] [address] * (ABNORMAL) Prothrombin Time/INR (01/25/2025 11:49 PM EDT) Prothrombin Time 14.6(H) 12.0 - 14.3 sec 01/26/2025 12:07 AM EDT [facility] INR 1.2(H) 0.9 - 1.1 01/26/2025 12:07 AM EDT [facility] Blood Venous blood specimen / Unknown Venipuncture / Unknown 01/25/2025 11:49 PM EDT 01/25/2025 11:52 PM EDT Narrative [facility] - 01/26/2025 12:07 AM EDT OPTIMAL INR RANGES FOR PATIENT ON ORAL ANTICOAGULANT THERAPY Prevention of venous thromboembolism INR 2.0 to 3.0 In patients with heart disease: Atrial fibrillation INR 2.0 to 3.0 Valvular heart disease INR 2.0 to 3.0 Tissue heart valves INR 2.0 to 3.0 Mechanical prosthetic valves INR 2.5 to 3.5 Prevention of recurrent AK INR 2.5 to 3.5 Juan Mast MD LAB BLOOD ORDERABLES Final R esult [facility] [address] [place] [address] * (ABNORMAL) CBC W/O Differential (01/25/2025 11:49 PM EDT) WBC Count 14.16(H) 3.70 - 10.30 10*3/uL LAB HEMATOLOGY METHOD 01/25/2025 11:54 PM EDT [facility] RBC Count 4.20(L) 4.60 - 6.10 10*6/uL LAB HEMATOLOGY METHOD 01/25/2025 11:54 PM EDT [facility] HGB 14.1 13.7 - 17.5 g/dL LAB HEMATOLOGY METHOD 01/25/2025 11:54 PM EDT [facility] HCT 40.8 40.0 - 51.0 % LAB HEMATOLOGY METHOD 01/25/2025 11:54 PM EDT [facility] Platelet Count 209 155 - 369 10*3/uL LAB HEMATOLOGY METHOD 01/25/2025 11:54 PM EDT [facility] MCV 97 79 - 98 fL LAB HEMATOLOGY METHOD 01/25/2025 11:54 PM EDT [facility] MCH 33.6(H) 26.0 - 32.0 pg LAB HEMATOLOGY METHOD 01/25/2025 11:54 PM EDT [facility] MCHC 34.6 30.7 - 35.5 g/dL LAB HEMATOLOGY METHOD 01/25/2025 11:54 PM EDT [facility] RDW 12.8 11.5 - 14.5 % LAB HEMATOLOGY METHOD 01/25/2025 11:54 PM EDT [facility] MPV 9.5 8.8 - 12.5 fL LAB HEMATOLOGY METHOD 01/25/2025 11:54 PM EDT [facility] nRBC 0.0 <=0.0 per 100 WBCs LAB HEMATOLOGY METHOD 01/25/2025 11:54 PM EDT [facility] Blood Venous blood specimen / Unknown Venipuncture / Unknown 01/25/2025 11:49 PM EDT 01/25/2025 11:52 PM EDT Juan Mast MD LAB BLOOD ORDERABLES Final R esult [facility] [address] [place] [address] * Hemoglobin A1c (01/25/2025 11:49 PM EDT) Hemoglobin A1c 5.0 <5.7 % 01/26/2025 9:21 AM EDT [facility] Blood Venous blood specimen / Unknown Venipuncture / Unknown 01/25/2025 11:49 PM EDT 01/25/2025 11:57 PM EDT Narrative [facility] - 01/26/2025 9:21 AM EDT HA1C Interpretive Data: Diagnosis of Diabetes: Diabetic > or = 6.5% Pre-diabetic 5.7 to 6.4% Non-diabetic < or = 5.6% Glycemic Targets for Type I and Type II Diabetics: Non- Adults <7.0% Adults <6.0% Children and Adolescents <7.5% Source: [place] [employer]. Standards of medical care in diabetes,2017. Diabetes Care.2017:40 (suppl 1):S1-S135. us Juan Mast MD LAB BLOOD ORDERABLES Final R esult [facility] [address] [place] [address] * (ABNORMAL) Basic Metabolic Panel, Plasma (01/25/2025 11:49 PM EDT) Glucose, Plasma 155(H) 74 - 99 mg/dL 01/26/2025 12:29 AM EDT [facility] BUN, Plasma 9 7 - 21 mg/dL 01/26/2025 12:29 AM EDT [facility] Creatinine, Plasma 0.65(L) 0.70 - 1.20 mg/dL 01/26/2025 12:29 AM EDT [facility] BUN/Creatinine Ratio 14 01/26/2025 12:29 AM EDT [facility] Sodium, Plasma 140 136 - 145 mmol/L 01/26/2025 12:29 AM EDT [facility] Potassium, Plasma 3.8 3.6 - 4.9 mmol/L 01/26/2025 12:29 AM EDT [facility] Chloride, Plasma 105 97 - 107 mmol/L 01/26/2025 12:29 AM EDT [facility] CO2, Plasma 24 22 - 29 mmol/L 01/26/2025 12:29 AM EDT [facility] Anion Gap 11 6 - 16 mmol/L 01/26/2025 12:29 AM EDT [facility] Total Calcium, Plasma 8.7(L) 8.9 - 10.2 mg/dL 01/26/2025 12:29 AM EDT [facility] eGFRcr 129.2 mL/min/1.7 3m*2 01/26/2025 12:29 AM EDT [facility] Comment:Reported eGFRcr in m L/min/1.73m2 is based the CKD-EPI 2020 equation that does not use a race coefficient. Blood Venous blood specimen / Unknown Venipuncture / Unknown 01/25/2025 11:49 PM EDT 01/25/2025 11:57 PM EDT Juan Mast MD LAB BLOOD ORDERABLES Final R esult [facility] [address] [place] [address] * XR Chest 1 View (01/25/2025 11:47 [...] Final Result from Last 3 Months Insurance [facility] MED[facility] Advance Directives * Full Code (Latest Code Status on File) Date Activated Date Inactivated Comments 01/25/2025 11:30 PM 01/26/2025 7:14 PM Question Answer Comments I have reviewed the capacity from the link above and, if needed, have updated to appropriate status: Yes Care Teams Float Phlebotomist Relationship Specialty Start Date End Date Pcp, No [address] [place] [address] PCP - General Family Medicine 01/25/25
--- OUTSIDE RECORDS SUMMARY | 2025-02-07 09:51 | XMS_ITS | Encounter Summary ---
Author Organization Healthcare Address [address] [place] [address] Care Team Providers Care Start Up Specialist Name Role Phone Pcp, No Primary Care Provider Unavailabl e Encounter Details Date Type Department Care Team (Late st Contact Info) Description 01/30/2025 Orders Only [facility] Orthopaedic Surgery & Sports Medicine [address] [place] [address] Anatn Francis MD [address] [place] [address] Social History Tobacco Use Types Packs/Day Years Used Date Smoking Tobacco: Never Assessed Sex and Gender Information Value Date Recorded Sex Assigned at Not on file Legal Sex Male 1:52 PM EDT Gender Identity Not on file Sexual Orientation Not on file documented as of this encounter Plan of Treatment Upcoming Encounters Date Type Department Care Team (Late st Contact Info) Description 02/07/2025 3:10 PM EDT Office Visit Matthew Hand [address] [place] [phone] Roxanne Summers PA [address] [place] [address] documented as of this encounter Visit Diagnoses Not on filedocumented in this encounter Care Teams Start Up Specialist Relationship Specialty Start Date End Date Pcp, No [address] [place] [address] PCP - General Family Medicine 01/25/25 documented as of this encounter
--- OUTSIDE RECORDS SUMMARY | 2025-02-07 09:51 | XMS_ITS | Encounter Summary ---
Author Organization Healthcare Address [address] [place] [address] Care Team Providers Care Fax Machine Operator Name Role Phone Pcp, No Primary Care [...] Office Visit Turadelaida Hand [address] [place] [address] Roxanne Summers, MARISOL [address] [place] [address] documented as of this encounter Visit Diagnoses Not on filedocumented in this encounter Care Teams Fax Machine Operator Relationship Specialty Start Date End Date Pcp, No [address] [place] [address] PCP - General Family Medicine 01/25/25 documented as of this encounter
--- OUTSIDE RECORDS SUMMARY | 2025-02-07 09:51 | XMS_ITS | Encounter Summary ---
Author Organization Healthcare Address [address] [place] [address] Care Team Providers Care Federal Appellate Clerk Name Role Phone Pcp, No Primary Care Provider Unavailabl e Encounter Details Date Type Department Care Team (Late st Contact Info) Description 01/25/2025 Orders Only External Location [address] [place] [phone] Provider, External Social History Tobacco Use Types [...] (Lifetime) No 5 8:07 PM EDT Cammy aPige documented as of this encounter Plan of Treatment Upcoming Encounters Date Type Department Care Team (Late st Contact Info) Description 02/07/2025 3:10 PM EDT Office Visit Matthew Noé [address] [place] [phone] Roxanne Summers PA [address] [place] [phone] documented as of this encounter Procedures Procedure [...] on filedocumented in this encounter Care Teams Federal Appellate Clerk Relationship Specialty Start Date End Date Pcp, [place] [address] PCP - General Family Medicine 01/25/25 documented as of this encounter
--- OUTSIDE RECORDS SUMMARY | 2025-02-07 09:51 | XMS_ITS | Encounter Summary ---
Author Organization Healthcare Address [address] [place] [address] Care Team Providers Care Senior Project Coordinator Name Role Phone Pcp, No Primary Care Provider Unavailabl e Encounter Details Date Type Department Care Team (Late st Contact Info) Description 02/05/2025 Patient Outreach [facility] [address] [place] [address] Rosa Hernandez Social History Tobacco Use Types Packs/Day Years Used Date Smoking Tobacco: Never Assessed Sex and Gender Information Value Date Recorded Sex Assigned at Not on file Legal Sex Male 1:52 PM EDT Gender Identity Not on file Sexual Orientation Not on file documented as of this encounter Miscellaneous Notes * Progress Notes - Rosa Hernandez - 02/05/2025 4:21 PM EDT Ryan spoke to pt on -[id number]. Pt is seeing Dr. Noyola in [place] for HCV treatment. LTC team will f/uin 6 months to monitor if pt completed HCV treatment and is HCV RNA ND. documented in this encounter Plan of Treatment Upcoming Encounters Date Type Department Care Team (Late st Contact Info) Description 02/07/2025 3:10 PM EDT Office Visit Turadelaida Hand [address] [place] [address] Roxanne Summers, PA [address] [place] [address] documented as of this encounter Visit Diagnoses Not on filedocumented in this encounter Care Teams Senior Project Coordinator Relationship Specialty Start Date End Date Pcp, No [address] [place] [address] PCP - General Family Medicine 01/25/25 documented as of this encounter
--- NOTE | 2025-02-07 10:00 | US_ITS ---
FINAL REPORT CLINICAL HISTORY: Hepatitis C FINDINGS: HEPATIC ULTRASOUND Multiple transverse and longitudinal scans were performed of the right upper quadrant of the abdomen. FINDINGS: Liver parenchyma appears normal. Liver is normal in size. No focal lesion is present. No intrahepatic duct dilatation is identified. No evidence of common bile duct dilatation is identified. Doppler exam shows normal directional flow within patent hepatic and portal veins. Gallbladder inadequately visualized. IMPRESSION: Unremarkable hepatic ultrasound HEPATIC ULTRASOUND ELASTOGRAPHY EQUIPMENT: [employer] EPIQ Elite 5, C5-1 probe FINDINGS: The median liver stiffness value is 0.74 m/s (1.66 KPa) consistent with no-mild fibrosis. The IQR/med is 15%. IMPRESSION: Measurements suggestive of no-mild fibrosis. Note: In the setting of elevated 1iver function tests, post prandial state, and CHF the degree of liver fibrosis may be overestimated Liver Stiffness Value Recommendation (per SRU): <= 5 kPa (1.3 m/sec) High probability of being normal < 9 kPa (1.7 m/sec) In the absence of other known clinical signs, rules out cACLD. If there are known clinical signs, may need further test for confirmation 9-13 kPa (1.7-2.1 m/sec) Suggestive of cACLD but need further test for confirmation > 13 kPa (2.1 m/sec) Rules in cACLD > 17 kPa (2.4 m/sec) Suggestive of CSPH Note.-ARFI = acoustic radiation force impulse, cACLD = compensated advanced chronic liver disease, CSPH = clinically significant portal hypertension, NAFLD = non-alcoholic fatty liver disease. Reviewed, Interpreted and Dictated by Juan Manuel Pappas MD Transcribed by Sonja Contreras Authenticated and [facility]
== END 2025-02-07 23:59 | disposition home or self-care (01) ==
LOC: RAD 09:47
PROVIDERS: PCP Internal Medicine; Visit Provider Internal Medicine
DX: B19.20 Unspecified viral hepatitis C without hepatic coma (principal)
CPT/HCPCS: 76981

== ENCOUNTER 2025-05-01 10:30 | Outpatient (CLI) | payer MEDICAID, SELFPAY ==
--- OUTSIDE RECORDS SUMMARY | 2025-03-14 13:50 | XMS_ITS | Encounter Summary ---
Author Organization [facility] Address [address] [place] [address] Care Team Providers Care Travel Accommodations Rater Name Role Phone Pcp, No Primary Care Provider Unavailabl e Reason for Visit * Reason Comments Follow-up Follow-up Follow-up Encounter Details Date Type Department Care Team (Late st Contact Info) Description 03/14/2025 1:50 PM EDT Office Visit Matthew Umanzor [address] [place] [address] Juan Mast MD [address] [address] Flexor tendon laceration of finger with open wound, subsequent encounter (Primary Dx) Social History Tobacco Use Types Packs/Day Years Used Date Smoking Tobacco: Former Cigarettes Smokeless Tobacco: Never Alcohol Use Standard Drinks/Week Comments Not Currently 0 (1 standard drink = 0.6 oz pur e alcohol) Sex and Gender Information Value Date Recorded Sex Assigned at Not on file Legal Sex Male 1:52 PM EDT Gender Identity Not on file Sexual Orientation Not on file documented as of this encounter Last Filed Vital Signs Vital Sign Reading Time Taken Comments Blood Pressure 129/87 03/14/2025 1:52 PM EDT Pulse 91 03/14/2025 1:52 PM EDT Temperature 36.7 C (98 F) 03/14/2025 1:52 PM EDT Respiratory Rate - - Oxygen Saturation 97% 03/14/2025 1:52 PM EDT Inhaled Oxygen Concentration - - Weight 65.8 kg (145 lb) 03/14/2025 1:52 PM EDT Height 182.9 cm (6') 03/14/2025 1:52 PM EDT Body Mass Index 19.67 03/14/2025 1:52 PM EDT documented in this encounter Miscellaneous Notes * Progress Notes - Beti Kennedy - 03/14/2025 1:50 PM EDT ORTHOPEDIC HAND FOLLOWUP NOTE Procedures: Repair of FDP tendon right ring finger Repair of FDP tendon right small finger Ulnar digital nerve repair of R SF Irrigation and debridement DOS: 01/26/2025 Attending: Dr. Mast Interval History: Patient has been doing well since his last appointment. He reports intermittent pain in his ring and SF. He reports that he is still unable to flex his DIPs in ring and small finger, and that he has continual numbness in the distribution of the ulnar digital nerve on his SF. He has been working with an OT in [place] and has been seeing some improvement in flexion. Patient's biggest concern today is his brace, which he states is uncomfortable to wear 07/02. Exam: General: well, in NAD Musculoskeletal: RUE: Skin intact with no erythema, edema, or discharge. Motor: weak flexion/extension of DIP 4-5, full flexion of all PIPs ROM: RF 15/15, SF 30/30 Sensation: reduced sensation in the distribution of the ulnar digital nerve on 5th distal phalanx. Median nerve dist: normal; radial nerve dis: normal Vascular: radial pulses 2+, capillary refill < 2sec, WWP My independent interpretation of radiographic testing shows: none obtained Notes reviewed: none Results of tests reviewed: none Assessment and plan: No diagnosis found. No orders of the defined types were placed in this encounter. No follow-ups on file. Fran Ruvalcaba is 6 weeks post op from right ring and small finger FDP repair and fifth digit ulnar digital nerve repair. He has been working with hand therapy is [place] and seeing some improvements in ROM. Recommended pt continue working with hand therapy and focusing on range of motion at this time. Advised patient to continue wearing the protective brace as the tendon repairs are still weak at this time. Plan to follow up with Dr. Mast in 5 weeks. Beti Kennedy - MS4 Cosigned by Juan Mast MD at 03/15/2025 11:03 AM EDT Associated attestation - Juan Mast MD - 03/15/2025 11:03 AM EDT I saw and evaluated the patient with the medical/EMR IMPLEMENTATION SPECIALIST/PA student. I discussed the case with the medical/EMR IMPLEMENTATION SPECIALIST/PA student and agree with the findings and plan as documented. I personally performed the Examand Medical Decision Making. documented in this encounter Plan of Treatment Not on file documented as of this encounter Visit Diagnoses Diagnosis Flexor tendon laceration of finger with open wound, subsequent encounter- Primary documented in this encounter Additional Health Concerns Assessment Noted Time A Body Mass Index follow-up plan has been documented for the patient 03/14/2025 2:24 PM EDT documented as of this encounter Care Teams Travel Accommodations Rater Relationship Specialty Start Date End Date Pcp, [place] [address] PCP - General Family Medicine 01/25/25 documented as of this encounter
[2025-05-01 15:26] LABS: Albumin Level 4.1 g/dl (3.5-5.0); Chloride 101 mmol/L (98-107); Sodium 140 mmol/L (136-145)
[2025-05-01 15:27] LABS: Potassium 4.3 mmoL/L (3.5-5.1)
[2025-05-01 15:29] LABS: Alanine Aminotransferase 19 U/L (12-78); Albumin/Globulin Ratio 1.4 (1.1-1.8); Alkaline Phosphatase 84 U/L (38-126); Anion Gap 15.3 mEq/L (5-15); Aspartate Amino Transferase 31 U/L (17-59); Bilirubin,Total 0.7 mg/dl (0.2-1.3); Blood Urea Nitrogen 8 mg/dl (9-20); Carbon Dioxide 28 mmol/L (22.0-30.0); Creatinine,Serum 0.80 mg/dl (0.66-1.25); Estimated Glomerular Filt Rate 113 ml/min (>60); GFR (African American) 136 ML/MIN (>60); Globulin 3.0 g/dL (1.3-3.2); Total Protein,Serum 7.1 g/dl (6.3-8.2)
[2025-05-01 15:30] LABS: Calcium 8.9 mg/dl (8.4-10.2); Glucose 94 mg/dl (74-100)
--- OUTSIDE RECORDS SUMMARY | 2025-05-02 10:02 | XMS_ITS | Encounter Summary ---
Author Organization [facility] Address [address] [place] [address] Care Team Providers Care Editor Dictionary Name Role Phone Pcp, No Primary Care Provider Unavailabl e Reason for Visit * Reason Onset Date Comments HCN Clinical Concern/Question 03/13/2025 Encounter Details Date Type Department Care Team (Late st Contact Info) Description 03/13/2025 Telephone [facility] [address] [place] [address] Juan Mast MD [address] [address] HCN Clinical Concern/Question Social History Tobacco Use Types Packs/Day Years Used Date Smoking Tobacco: Former Cigarettes Smokeless Tobacco: Never Sex and Gender Information Value Date Recorded Sex Assigned at Not on file Legal Sex Male 1:52 PM EDT Gender Identity Not on file Sexual Orientation Not on file documented as of this encounter Miscellaneous Notes * Telephone Encounter - Marya Kim RN - 03/13/2025 11:27 AM EDT Called and got his apt rescheduled. * Telephone Encounter - Jayda Adam - 03/13/2025 11:01 AM EDT Clinical Concern/Question Reason for Call: patient is requesting a call back regarding his cast Best contact number: [phone] (mobile) Optimal time of day to reach caller: ANYTIME Additional comments/information from caller: None Note: Please do not reply to this message. Follow-up communication and further actions as a result of this message need to be communicated with the patient directly, if the patient is not active onMyChart. If the patient is active on MyChart, they will receive notification of the communication/outcome via MyChart. documented in this encounter Plan of Treatment Not on file documented as of this encounter Visit Diagnoses Not on filedocumented in this encounter Additional Health Concerns Assessment Noted Time A Body Mass Index follow-up plan has been documented for the patient 02/07/2025 4:03 PM EDT documented as of this encounter Care Teams Editor Dictionary Relationship Specialty Start Date End Date Pcp, Marilee [address] [place] [address] PCP - General Family Medicine 01/25/25 documented as of this encounter
--- OUTSIDE RECORDS SUMMARY | 2025-05-02 10:02 | XMS_ITS | Clinical Summary ---
Author Organization [facility] Address [address] [place] [address] Care Team Providers Care Plywood Factory Worker Name Role Phone Pcp, No Primary Care [...] for severe pain. 10 tablet 5 Active Additional Information Patient not taking.Reported on 03/14/2025 HYDROcodone-vin taminophen (Beltrami) 5-325 MG tablet 4 Active sofosbuvir-velp atasvir (Epclusa) 400-100 MG tablet TAKE ONE TABLET BY MOUTH EVERY DAY FOR 12 WEEKS 5 Active sulfamethoxazol e-trimethoprim (Bactrim DS) 800-160 MG tablet 5 Active Active Problems Problem Noted Date Diagnosed Date Flexor tendon laceration of finger with open wou nd 01/26/2025 Finger laceration, initial encounter 01/25/2025 Encounters Date Type Department Care Team Description 03/14/2025 1:50 PM EDT Office Visit [facility] [address] [place] [address] Juan Mast MD Flexor tendon laceration of finger with open wound, subsequent encounter (Primary Dx) 03/14/2025 Travel 03/13/2025 Telephone [facility] [place] [address] [address] Juan Mast MD HCN Clinical Concern/Question 02/19/2025 Telephone [facility] [address] [place] [address] Juan Mast MD HCN - Patient Message 02/13/2025 Telephone [facility] [address] [place] [address] Juan Mast MD HCN - Patient Message 02/07/2025 3:10 PM EDT Office Visit [facility] [address] [place] [address] Roxanne Summers PA Flexor tendon laceration of finger with open wound, subsequent encounter (Primary Dx) 02/07/2025 Travel 02/05/2025 Patient Outreach [facility] [address] [place] [address] Rosa eHrnandez 01/30/2025 Orders Only [facility] [address] [place] [address] Anant Francis MD from Last 3 Months Social History Tobacco Use Types Packs/Day Years Used Date Smoking Tobacco: Former Cigarettes Smokeless Tobacco: Never Tobacco Cessation:Counseling Given: Not Answered Alcohol Use Standard Drinks/Week Comments Not Currently [...] F) 03/14/2025 1:52 PM EDT Respiratory Rate 12 01/26/2025 3:15 PM EDT Oxygen Saturation 97% 03/14/2025 1:52 PM EDT Inhaled Oxygen Concentration - - Weight 65.8 kg (145 lb) 03/14/2025 1:52 PM EDT Height 182.9 cm (6') 03/14/2025 1:52 PM EDT Body Mass Index 19.67 03/14/2025 1:52 PM EDT Plan of Treatment Health Maintenance Due Date Last Done Comments [facility]-Depression Screening 1994 [facility]-Infant/Child/Adol SDOH Screenings 1994 [facility]-Varicella Vaccines (2 of 2 - 2-dose childhood series) 11/01/2006 08/09/2006 [facility]- SDOH Screenings 01/05/2012 [facility]-Adult SDOH Screenings 01/05/2012 [facility]-Hepatitis B Vaccines (1 of 3 - 19+ 3-dose series) 2013 HPV Vaccines (1 - 3-dose SCDM series) 2021 [facility]-TIDDH-11 Vaccine (2 - 2024- season) 2025 02/05/2021 [facility]-Influenza Vaccine (#1) 2025 04/25/2018, [facility]-DTaP,Tdap,and [...] Procedure Name Priority Date/Time Associated Diagnosis Comments HEPATITIS C ANTIBODY - ED W/REFLEX TO HCV QUANT PCR Routine 01/25/2025 11:49 PM EDT ED HIV 1/2 ANTIBODY/ANTIGEN SCREEN WITH REFLEX TO HIV I/II DIFFERENTIATION Routine 01/25/2025 11:49 PM EDT from Last 3 Months or Most Recently Relevant to Health Maintenance Results * ED HIV 1/2 Antibody/Antigen Screen w/Reflex to HIV 1/2 Differentiation (01/25/2025 11:49 PM EDT) Pathologist [facility] HIV 1 & 2 Antibody/Antigen Screen Non Reactive Non Reactive 01/26/2025 12:37 AM EDT [facility] Comment:Screening for HIV 1 & 2 antibodies, and P24 antigen is NONREACTIVE. No confirmatory testing is required. Blood Venous blood specimen / Unknown Venipuncture / Unknown 01/25/2025 11:49 PM EDT 01/25/2025 11:56 PM EDT us Juan Mast MD LAB BLOOD ORDERABLES Final R esult Performing Organization Address City/[facility]/ZIP Co de Phone Number [facility] [address] [place] [address] * (ABNORMAL) Hepatitis C Antibody - ED (01/25/2025 11:49 PM EDT) Pathologist [facility] Hepatitis C Antibody Positive(A ) Negative 01/26/2025 12:52 AM EDT [facility] Blood Venous blood specimen / Unknown Venipuncture / Unknown 01/25/2025 11:49 PM EDT 01/25/2025 11:56 PM EDT us Juan Mast MD LAB BLOOD ORDERABLES Final R esult [facility] [address] [place] [address] from Last 3 Months or Most Recently Relevant to Health Maintenance Insurance [facility] MEDICAID Advance Directives * Full Code (Latest Code Status on File) Date Activated Date Inactivated Comments 01/25/2025 11:30 PM 01/26/2025 7:14 PM Question Answer Comments I have reviewed the capacity from the link above and, if needed, have updated to appropriate status: Yes Care Teams Plywood Factory Worker Relationship Specialty Start Date End Date Pcp, No [address] [place] [address] PCP - General Family Medicine 01/25/25
--- OUTSIDE RECORDS SUMMARY | 2025-05-02 10:02 | XMS_ITS | Encounter Summary ---
Author Organization [facility] Address [address] [place] [address] Care Team Providers Care Manager Communication Name Role Phone Pcp, No Primary Care Provider Unavailabl e Encounter Details Date Type Department Care Team (Latest Contact Info) Description 03/14/2025 Travel Social History Tobacco Use Types Packs/Day [...] as of this encounter Plan of Treatment Not on file documented as of this encounter Visit Diagnoses Not on filedocumented in this encounter Additional Health Concerns Assessment Noted Time A Body Mass Index follow-up plan has been documented for the patient 03/14/2025 2:24 PM EDT documented as of this encounter Care Teams Manager Communication Relationship Specialty Start Date End Date Pcp, [place] [address] PCP - General Family Medicine 01/25/25 documented as of this encounter
--- OUTSIDE RECORDS SUMMARY | 2025-05-02 10:02 | XMS_ITS | Encounter Summary ---
Author Organization [facility] Address [address] [place] [address] Care Team Providers Care Horticulture Teacher Name Role Phone Pcp, No Primary Care Provider Unavailabl e Reason for Visit * Reason Onset Date Comments HCN - Patient Message 02/19/2025 Encounter Details Date Type Department Care Team (Late st Contact Info) Description 02/19/2025 Telephone [facility] [address] [place] [address] Juan Mast MD [address] [address] HCN - Patient Message Social History Tobacco Use Types Packs/Day Years Used Date Smoking Tobacco: Former Cigarettes Smokeless Tobacco: Never Sex and Gender Information Value Date Recorded Sex Assigned at Not on file Legal Sex Male 1:52 PM EDT Gender Identity Not on file Sexual Orientation Not on file documented as of this encounter Miscellaneous Notes * Telephone Encounter - Andree Sandoval RN - 02/20/2025 2:09 PM EDT Called pt to ask how he was doing, as I haven't gotten pictures yet. Phone rang and rang, no answer, then disconnected. Will try again later. * Telephone Encounter - Andree Sandoval RN - 02/19/2025 10:59 AM EDT Called and spoke with pt. He says his hand therapist has been using germ-X on his surgical site even though he's asked him not to, and it is red and it stings. He will send in photos through [employer]. * Telephone Encounter - Mich uG - 02/19/2025 9:53 AM EDT Clinical Concern/Question Reason for Call: Kezia patient is asking to speak with nurse about concern for infection at his surgery site Best contact number: [phone] (mobile) Optimal time of day to reach caller: ANYTIME Additional comments/information from caller: None Note: Please do not reply to this message. Follow-up communication and further actions as a result of this message need to be communicated with the patient directly, if the patient is not active onMyChart. If the patient is active on MyChart, they will receive notification of the communication/outcome via [employer]. documented in this encounter Plan of Treatment Not on file documented as of this encounter Visit Diagnoses Not on filedocumented in this encounter Additional Health Concerns Assessment Noted Time A Body Mass Index follow-up plan has been documented for the patient 02/07/2025 4:03 PM EDT documented as of this encounter Care Teams Horticulture Teacher Relationship Specialty Start Date End Date Pcp, [place] [address] PCP - General Family Medicine 01/25/25 documented as of this encounter
--- OUTSIDE RECORDS SUMMARY | 2025-05-02 10:03 | XMS_ITS ---
Author Organization [facility] Address [address] [id number] Care Team Providers Care Embossing Machine Operator Name Role Phone Pcp, No Primary Care Provider Unavailabl e Hepatitis C Program Status:Active (Active) Start date:01/25/2025 Enrollment date:01/25/2025 Continued Care and Services Coordination
== END 2025-05-01 23:59 | disposition home or self-care (01) ==
LOC: LAB.DROPOF 05-02 09:49
PROVIDERS: PCP Internal Medicine; Visit Provider Internal Medicine
DX: B19.20 Unspecified viral hepatitis C without hepatic coma (principal)
CPT/HCPCS: 80053; 87522